=== PATIENT | female | born 1990 | race Caucasian/White ===

== ENCOUNTER 2022-03-08 06:03 | Day surgery (SDC) | payer OTHER, SELFPAY ==
[2022-03-08] VITALS (13 sets, daily range): BP systolic 101–138; BP diastolic 7–107; PULSE 60–82; RESP 16–18; TEMP 36.4–36.9; O2SAT 96–99; BMI 31.4
[2022-03-08] MEDS: LACTATED RINGERS 1000 ML 1,000 ML 100 ML IV (06:30)
[2022-03-08 06:33] LABS: Ur HCG Qualitative* Negative (Negative)
[2022-03-08] MEDS: SODIUM CHLORIDE 0.9 % (FLUSH) 10 ML SYRINGE IVF (06:47)
[2022-03-08] MEDS: BACITRACIN OINTMENT BULK TUBE 1 APPLIC TOPICAL (08:08)
[2022-03-08] MEDS: BUPIVACAINE LIPOSOME 133 MG/10 ML INJ INFILTRATI (08:08)
[2022-03-08] MEDS: BUPIVACAINE 0.25% 30 ML 10 ML INJECTION (08:08)
--- NOTE | 2022-03-08 08:11 | P.GSOP_ITS ---
Operative Note Date of procedure: 03/08/22 Pre-op diagnosis: Perianal skin tags Post-op diagnosis: Same Type of Procedure: Exam under anesthesia, excision of perianal nodule, excision of perianal skin tag Procedure Description: After discussing the risks and benefits of the procedure, the patient signed informed consent.? The operative site was marked and the patient was brought to the operating room and placed on the operating table in supine position.? Care was taken to pad the patient's pressure points.?? The patient was then given a spinal anesthetic and MAC anesthesia by anesthesia.? The patient was then transferred to the Operating Room table, placed in the prone jackknife position with appropriate bumps and padding. Care was taken to ensure the genitalia and breasts were properly positioned on the hip and chest rolls, respectively. The shoulders and arms were positioned with care to protect the brachial plexus. The buttocks were taped laterally. A sterile prep and drape was done in the usual fashion. A formal timeout for patient safety was performed in accordance with hospital protocol, thereby correctly matching this patient with their di agnosis and intended procedure. External examination, digital rectal examination, and anoscopic examination were all done and revealed a 1 mm nodule posterior midline, as well as a prominent perianal skin tag anterior midline. Attention was 1st directed to the nodule. This was excised with cautery and passed off the back table to be sent to pathology. Hemostasis was assured with electrocautery. A large perianal skin tag was appreciated anterior midline. An elliptical incision was made with a blunt needle tip electrocautery from the anoderm up into the anal canal just above the dentate line. Careful dissection of the hemorrhoid complex was done in the plane between the internal anal sphincter and the submucosal vascular plexus up to just above the dentate line in each quadrant described above. Having established the proper plane, the hemorrhoidal tissue was then excised with the Ligasure device and sent to Pathology with the nodule for analysis. Care was taken to preserve mucosa for a tension-free closure. The internal sphincter fibers were visualized at the base of the wound and were intact. The wound was closed in a running locked manner starting at the apex (proximal aspect of elliptical excision) with 4-0 chromic suture, coming out to the anoderm and then running back up in a simple fashion and tying down at the apex. Hemostasis was excellent. The patient tolerated procedure well. There were no apparent complications. Instrument, sponge, and needle counts were correct at the end of the case. Indications: Perianal nodule and perianal skin tag Anesthesia: MAC and spinal Surgeon: Shae Morrison MD Estimated blood loss (mL): 2 Additional Specimen Information: Perianal skin tags Condition: stable Disposition: same day
--- NOTE | 2022-03-08 08:17 | W.ANESCHARGE ---
Anesthesia Charges Start Date/Time Anesthesia Start Date: 03/08/22 Anesthesia Start Time: 07:32 Stop Date/Time Anesthesia Stop Date: 03/08/22 Anesthesia Stop Time: 08:15 Summary Emergency: No
--- NOTE | 2022-03-08 09:16 | W.ANESCHARGE ---
Anesthesia Charges Start Date/Time Anesthesia Start Date: 03/08/22 Anesthesia Start Time: 07:32 Stop Date/Time Anesthesia Stop Date: 03/08/22 Anesthesia Stop Time: 08:15 Summary Emergency: No
== END 2022-03-08 10:16 | disposition home or self-care (01) ==
PROVIDERS: PCP Physician Assistant Medical; Visit Provider Surgery
PROC: (CPT 46922; principal; 2022-03-08 07:30)
DX: K64.4 Residual hemorrhoidal skin tags (principal); K62.0 Anal polyp
CPT/HCPCS: 46922; 46230; 00902; 81025; 88304; C9290; J0330; J2250; J2400; J2405; J2704; J3010; J3490; J7120

== ENCOUNTER 2022-07-12 14:08 | Emergency (ER) | payer BC, SELFPAY ==
[2022-07-12 14:19] VITALS: BP 135/80; PULSE 86; RESP 18; TEMP 37.2; O2SAT 99; BMI 29.0
--- NOTE | 2022-07-12 16:14 | ED.FEMALEGU ---
HPI - Female Genitourinary General Time Seen by Provider: 16:14 Date Seen: 07/12/22 Chief complaint: Vaginal Bleeding Stated complaint: 3w Bleeding Time Seen by Provider: 07/12/22 16:11 Source: patient and RN notes reviewed Mode of arrival: ambulatory Limitations: no limitations History of Present Illness HPI Narrative: Patient is a 32-year-old female coming in with early bleeding that is concerning for possible miscarriage. She has not taken a home test, is not taken any test yet. She has had 2 prior miscarriages. Her LMP 1st day was 06/21/2022. She did start spotting a week early, noticed some this morning but went to work and was increasing. It is not have the clotting or heavy bleeding at this point. She is Rh negative and if is bleeding wants anything done. She states if it is early implantation bleeding she wants to do whatever she can to protect the . Date of last menstrual period: 06/21/22 Related Data : 2 Home Medications Medication Instructions Recorded Confirmed albuterol sulfate 90 mcg/actuation 2 inh inhalation PRN 01/09/22 06/06/22 aerosol inhaler cetirizine 10 mg tablet 10 mg PO DAILY 01/09/22 06/06/22 vits no.130-ferrous fum 1 tab PO DAILY 07/12/22 07/12/22 27 mg iron-folic acid 800 mcg tablet ( Vitamin) Previous Rx's Medication Instructions Recorded albuterol sulfate 2.5 mg/3 mL 2.5 mg (3 mL) continuous 01/09/22 (0.083 %) solution for nebulization nebulization Q6-8H PRN shortness of breath or wheezing #90 mL sennosides 8.6 mg capsule (senna) 8.6 mg PO BID #90 caps 03/07/22 epinephrine 0.3 mg/0.3 mL 0.3 mg (0.3 mL) IM .As Needed as 06/06/22 injection, auto-injector needed PRN anaphylaxis #2 ea fluoxetine 20 mg capsule 20 mg PO QDAY #90 caps 07/03/22 fluoxetine 40 mg capsule 40 mg PO QDAY #90 caps 07/03/22 levothyroxine 50 mcg tablet 50 mcg PO DAILY #90 tabs 07/04/22 Allergies Allergy/AdvReac Type Severity Reaction Status Date / Time pineapple Allergy Severe Anaphylaxis Verified 07/12/22 14:26 metoclopramide Allergy Intermediate Jittery Verified 07/12/22 14:26 and anxious latex Allergy Mild Unknown Verified 07/12/22 14:26 Sulfa Antibiotics Allergy Intermediate Vomiting Uncoded 06/06/22 13:35 Review of Systems Status of ROS: Reports: 6 or more systems reviewed and unremarkable except as noted in History and below PFS PFS Surgical History (Updated 10/20/21 @ 09:38 by Ely Moore) History of endoscopy ?Z98.890 - Other specified postprocedural states (ICD-10) History of colonoscopy ?Z98.890 - Other specified postprocedural states (ICD-10) History of abdominal surgery ?Z98.890 - Other specified postprocedural states (ICD-10) Family History (Updated 10/20/21 @ 09:41 by Ely Moore) Other Heart disease Mental disorder Seizures Type 2 diabetes mellitus Social History (Updated 10/20/21 @ 09:42 by Ely Moore) Narrative: Non-smoker Smoking Status: Never smoker Do you use any of these nicotine containing products: None How often do you have a drink containing alcohol: monthly or less Alcohol type: beer How many standard drinks containing alcohol do you have on a typical day: 1 or 2 How often do you have six or more drinks on one occasion: Never AUDIT-C Alcohol total score: 1 Non-prescribed substance use: denies use Caffeine: Yes (soda energy drinks) Little interest or pleasure in doing things: more than half the days Feeling down, depressed, or hopeless: several days Are you using contraception or practicing any form of control: No Exam Const: Vital Signs, click to edit/add: Vital Signs - 24 hr 07/12/22 14:19 Temperature 99.0 F Pulse Rate [Right Pulse Oximeter] 86 Respiratory Rate 18 Blood Pressure [Ri ght Upper Arm] 135/80 Pulse Oximetry 99 Oxygen Delivery Me thod Room Air Documenting provider has reviewed patient's vital signs: yes Common normals: no apparent distress, average body habitus, oriented x3, no limitations, healthy appearing and alert Other: A bit tearful at times but no distress. HENMT: Common normals: normocephalic, head/scalp atraumatic and hearing grossly normal bilaterally Head and scalp: normocephalic and atraumatic Eye: Common normals: PERRL, EOMs intact bilaterally, conjunctivae normal and no scleral icterus Conjunctiva: conjunctiva(e) normal Pupil: PERRL Neck & C-Spine: Common normals: full ROM, no lymphadenopathy and supple Resp: Common normals: normal respiratory effort, no retractions, no use of accessory muscles and clear to auscultation bilaterally Auscultation: clear to auscultation bilaterally Cardio: Common normals: regular rate, regular rhythm, S1 normal heart sound, S2 normal heart sound, no gallops, no clicks, no murmurs and no rub Rate: regular rate Rhythm: regular rhythm Heart sounds: S1 normal and S2 normal GI: Common normals: Normal to inspection, nondistended, normoactive bowel sounds present, soft to palpation, non-tender, no hepatosplenomegaly and no masses Palpation: soft and no hepatosplenomegaly Neuro: Common normals: oriented x3 Sensorium/orientation: alert Course Course Hospital Course: Reviewed with patient that we will be obtaining test. If this is negative, then this is likely irregular menstrual bleeding, possibly and an anovulatory cycle. If test is positive, will be giving her RhoGAM, checking a quantitative hCG and hemoglobin. This early on, an ultrasound is not likely to be helpful in she is not having abdominal pain. Vital Signs Vital signs: Initial Vital Signs Temperature 99.0 F 07/12/22 14:19 Temperature Source Temporal Artery Scan 07/12/22 14:19 Pulse Rate 86 07/12/22 14:19 Pulse Rhythm Regular 07/12/22 14:19 Respiratory Rate 18 07/12/22 14:19 Blood Pressure 135/80 07/12/22 14:19 Blood Pressure Mean 98 07/12/22 14:19 Blood Pressure Position Sitting 07/12/22 14:19 Pulse Oximetry 99 07/12/22 14:19 Oxygen Delivery Method Room Air 07/12/22 14:19 Vital Signs Temperature 99.0 F 07/12/22 14:19 Pulse Rate 86 07/12/22 14:19 Respiratory Rate 18 07/12/22 14:19 Blood Pressure 135/80 07/12/22 14:19 Pulse Oximetry 99 07/12/22 14:19 Oxygen Delivery Method Room Air 07/12/22 14:19 Temperature 99.0 F 07/12/22 14:19 Pulse Rate 86 07/12/22 14:19 Respiratory Rate 18 07/12/22 14:19 Blood Pressure 135/80 07/12/22 14:19 Pulse Oximetry 99 07/12/22 14:19 Oxygen Delivery Method Room Air 07/12/22 14:19 MDM - Female Genitourinary Lab Data Attestation: I reviewed the patient's lab results. Labs: Lab Results 07/12/22 Range/Units 16:00 Urine HCG, Qual Negative (Negative) Critical Care Time Critical Care Time Critical Care Time: No Discharge Plan Discharge Clinical Impression: Vaginal bleeding Patient Disposition: Home, Self-Care Condition: Stable Instructions: Abnormal (Dysfunctional) Uterine Bleeding (ED) Additional Instructions: No evidence of on current testing. Please follow-up with your OB Gyne or primary care provider. If you experience heavy bleeding where your going through a maxi pad more than once every hour over 2 hours or if symptomatic from bleeding, please seek re-evaluation. Activity Level: Activity as Tolerated Discharge Diet: Regular Prescriptions: No Action albuterol sulfate 90 mcg/actuation HFA aerosol inhaler 2 inh inhalation PRN cetirizine 10 mg tablet 10 mg PO DAILY albuterol sulfate 2.5 mg /3 mL (0.083 %) solution for nebulization 2.5 mg continuous nebulization Q6-8H PRN (Reason: shortness of breath or wheezing) Qty: 90 3RF epinephrine 0.3 mg/0.3 mL auto-injector 0.3 mg IM .As Needed as needed PRN (Reason: anaphylaxis) Qty: 2 1RF Vitamin 27 mg iron- 800 mcg tablet 1 tab PO DAILY senna 8.6 mg capsule 8.6 mg PO BID Qty: 90 0RF Rx Instructions: Please take stool softeners while on narcotic pain medication. Stop if having > 2 bowel movements a day. fluoxetine 40 mg capsule 40 mg PO QDAY Qty: 90 0RF fluoxetine 20 mg capsule 20 mg PO QDAY Qty: 90 0RF Rx Instructions: 1 po daily for total of 60mg daily levothyroxine 50 mcg tablet 50 mcg PO DAILY Qty: 90 0RF Rx Instructions: due for labs for further refills Follow Up/Referrals: Tee Souza PA-C [Primary Care Provider] - Stand Alone Forms: [employer] [facility] [facility]th Info Instructions
[2022-07-12 16:46] LABS: Ur HCG Qualitative* Negative (Negative)
== END 2022-07-12 17:20 | disposition home or self-care (01) ==
PROVIDERS: Emergency Provider Family Medicine; PCP Physician Assistant Medical
DX: O20.9 Hemorrhage in early pregnancy, unspecified (principal)
CPT/HCPCS: 81025; 99282; 99283

== ENCOUNTER 2022-10-31 08:30 | Outpatient (CLI) | payer BC, SELFPAY ==
--- NOTE | 2022-10-31 09:15 | CRLHL7_ITS ---
For Patients: As a result of the Cures Act, medical imaging exams and procedure reports are released immediately into your electronic medical record. You may view this report before your referring provider. If you have questions, please contact your health care provider. INDICATION: First trimester scan, establish dates. COMPARISON: None. TECHNIQUE: Real-time harris-scale imaging of the pelvis was performed. FINDINGS: Sonographic imaging demonstrates a single living intrauterine gestation. The embryo demonstrates a regular cardiac rate measuring 176 beats per minute. The embryo`s crown-rump length measurement of 2.1 cm corresponds to a gestational age of 8 weeks 5 days with a sonographic due date of June 07, 2023. There is a normal-appearing yolk sac measuring up to 4 mm. There are no gross abnormalities noted within the embryo at this early state of development. The placenta has not yet developed. The gestational sac has a normal appearance and there is no evidence of a perigestational hemorrhage. The amount of fluid within the sac appears appropriate for gestational age. The cervix is closed. The myometrium appears normal. The right ovary is not seen. The left ovary measures 2.9 x 2.3 x 2.2 cm. Small corpus luteum cyst of left ovary. There are no suspicious fluid collections noted in the cul-de-sac. IMPRESSION: Normal first trimester OB ultrasound exam. Gestational age calculated at 8 weeks 5 days with a sonographic due date of June 07, 2023. Dictated by Javier Quintanilla MD @ 10/31/2022 9:56:51 PM (Electronically Signed)
== END 2022-10-31 08:31 | disposition home or self-care (01) ==
LOC: US 08:32
PROVIDERS: PCP Physician Assistant Medical; Visit Provider Registered Nurse
DX: Z34.91 Encounter for supervision of normal pregnancy, unspecified, first trimester (principal); Z3A.08 8 weeks gestation of pregnancy
CPT/HCPCS: 76817; 84443; 86592; 86703; 86762; 86787; 86803; 86850; 86900; 86901; 87086; 87340; 87491; 87591

== ENCOUNTER 2022-12-09 16:14 | Emergency (ER) | payer OTHER, BC, SELFPAY ==
[2022-12-09 16:24] VITALS: BP 131/78; PULSE 102; RESP 18; TEMP 37.6; O2SAT 99; BMI 30.2
--- NOTE | 2022-12-09 16:32 | ED_ITS ---
HPI - Abdominal Pain General Chief Complaint: Abdominal Pain Stated Complaint: 14 wks , abdominal injury Time Seen by Provider: 12/09/22 16:17 History of Present Illness HPI narrative: This 32-year-old female who is 14 weeks and comes in with an injury to her lower abdomen. She states that her Great [place] dog jumped across and hit her in the lower abdomen. She is very concerned about her but does not report any cramping or bloody red discharge. She has had some brownish spotting over the past few days prior to this. Related Data Home Medications Medication Instructions Recorded Confirmed albuterol sulfate 90 mcg/actuation 2 inh inhalation PRN 01/09/22 11/28/22 aerosol inhaler vits no.130-ferrous fum 1 tab PO DAILY 07/12/22 11/28/22 27 mg iron-folic acid 800 mcg tablet ( Vitamin) ascorbic acid 100 mg-elderberry tab PO 10/31/22 11/28/22 fruit 50 mg chewable tablet (Airborne (elderberry)) wheat dextrin 3 gram/3.8 gram oral 1 packet PO BID 10/31/22 11/28/22 powder (Fiber Supplement(wheat dextrin)) aspirin 81 mg chewable tablet 81 mg PO QDAY 11/28/22 11/28/22 Previous Rx's Medication Instructions Recorded albuterol sulfate 2.5 mg/3 mL 2.5 mg (3 mL) continuous 01/09/22 (0.083 %) solution for nebulization nebulization Q6-8H PRN shortness of breath or wheezing #90 mL epinephrine 0.3 mg/0.3 mL 0.3 mg (0.3 mL) IM .As Needed as 06/06/22 injection, auto-injector needed PRN anaphylaxis #2 ea levothyroxine 50 mcg tablet 50 mcg PO DAILY #90 tabs 10/31/22 ondansetron 4 mg disintegrating 4 mg PO .q6hr PRN nausea and 10/31/22 tablet vomiting #30 tabs Allergies Allergy/AdvReac Type Severity Reaction Status Date / Time pineapple Allergy Severe Anaphylaxis Verified 12/09/22 16:22 metoclopramide Allergy Intermediate Jittery Verified 12/09/22 16:22 and anxious latex Allergy Mild Unknown Verified 12/09/22 16:22 Sulfa Antibiotics Allergy Intermediate Vomiting Uncoded 11/28/22 13:16 Review of Systems Status of ROS Reports: 10 or more systems reviewed and unremarkable except as noted in History and below Narrative Constitutional: No fevers, no weight gain or loss. Eyes: No discharge. No vision changes. HENT: No congestion, no sore throat, no ear pain. Cardiovascular: No chest pain, no palpitations. Respiratory: No shortness of breath, no wheezes, no cough. Gastrointestinal: No vomiting, no diarrhea. Abdominal pain in the lower abd omen. Genitourinary: No dysuria, no hematuria. Musculoskeletal: Normal range of motion. Skin: No rashes, no pruritis. Neurological: No dizziness, weakness, sensory change, speech change. Endo/Heme/Allergies: No bruising or bleeding. No polydipsia. Pysch: no suicidality, no anxiety, no insomnia. All other systems reviewed and are negative. [facility] Medical History Hemorrhage in early ?O20.9 - Hemorrhage in early , unspecified (ICD-10) Fertility testing ?Z31.41 - Encounter for fertility testing (ICD-10) Surgical History H/O eye surgery ?Z98.890 - Other specified postprocedural states (ICD-10) History of endoscopy ?Z98.890 - Other specified postprocedural states (ICD-10) History of colonoscopy ?Z98.890 - Other specified postprocedural states (ICD-10) History of abdominal surgery ?Z98.890 - Other specified postprocedural states (ICD-10) Family History Other Heart disease Mental disorder Seizures Type 2 diabetes mellitus Social History Narrative: Non-smoker Smoking Status: Never smoker Do you use any of these nicotine containing products: None Second hand tobacco smoke exposure: No How often do you have a drink containing alcohol: never How many standard drinks containing alcohol do you have on a typical day: 1 or 2 How often do you have six or more drinks on one occasion: Never AUDIT-C Alcohol total score: 0 Non-prescribed substance use: denies use Caffeine: Yes (soda energy drinks) Little interest or pleasure in doing things: not at all Feeling down, depressed, or hopeless: several days Are you using contraception or practicing any form of control: No service: No Exam Narrative: Exam Narrative: Constitutional: Well-developed, well-nourished, no acute distress. HEENT: Normocephalic, atraumatic. Neck: Normal range of motion. Nontender. Supple. Heart: Regular. No murmurs. Normal rate. Intact distal pulses. Lungs: Clear to auscultation. No chest discomfort. No wheezes, rhonchi, or rales. Abdomen: Normal bowel sounds. Nontender. No rebound tenderness. Genitalia: Deferred. Back: No midline tenderness. Normal range of motion. Extremities: Normal range of motion. No injury. Skin: Intact. No rash. Warm. No erythema or pallor. Neurologic: No altered sensation. No weakness. Alert and oriented. Psychiatric: No suicidality. No anxiety or depression. No insomnia. Nursing notes and vitals signs are reviewed. Const: Vital Signs, click to edit/add: Vital Signs - 24 hr 12/09/22 16:24 Temperature 99.6 F Pulse Rate [Pulse Oximeter] 102 H Respiratory Rate 18 Blood Pressure [Ri ght Upper Arm] 131/78 Pulse Oximetry 99 Oxygen Delivery Me thod Room Air Course Vital Signs Vital signs: Initial Vital Signs Temperature 99.6 F 12/09/22 16:24 Temperature Source Temporal Artery Scan 12/09/22 16:24 Pulse Rate 102 H 12/09/22 16:24 Pulse Rhythm Regular 12/09/22 16:24 Pulse Strength 3+ Normal 12/09/22 16:24 Respiratory Rate 18 12/09/22 16:24 Blood Pressure 131/78 12/09/22 16:24 Blood Pressure Mean 95 12/09/22 16:24 Blood Pressure Position Sitting 12/09/22 16:24 Pulse Oximetry 99 12/09/22 16:24 Oxygen Delivery Method Room Air 12/09/22 16:24 Vital Signs Temperature 99.6 F 12/09/22 16:24 Pulse Rate 102 H 12/09/22 16:24 Respiratory Rate 18 12/09/22 16:24 Blood Pressure 131/78 10/01/23 16:24 Pulse Oximetry 99 12/09/22 16:24 Oxygen Delivery Method Room Air 12/09/22 16:24 Temperature 99.6 F 12/09/22 16:24 Pulse Rate 102 H 12/09/22 16:24 Respiratory Rate 18 12/09/22 16:24 Blood Pressure 131/78 12/09/22 16:24 Pulse Oximetry 99 12/09/22 16:24 Oxygen Delivery Method Room Air 12/09/22 16:24 MDM - Abdominal Pain MDM Narrative Medical decision making narrative: This patient comes in with concern about her after her 90 lb great chain jumped and landed on her lower abdomen. Using bedside ultrasound I showed images of her which displayed good activity, normal amount of amniotic fluid, and normal heart activity. This was very reassuring to the patient and her . She is encouraged use Tylenol as needed and to cont inue current plans otherwise. Discharge Plan Discharge Clinical Impression: , Abdominal pain due to injury Patient Disposition: Home, Self-Care Condition: Stable Additional Instructions: Continue current plans. Use Tylenol as needed and directed. Follow up with MD return if worsening. Prescriptions: No Action albuterol sulfate 90 mcg/actuation HFA aerosol inhaler 2 inh inhalation PRN albuterol sulfate 2.5 mg /3 mL (0.083 %) solution for nebulization 2.5 mg continuous nebulization Q6-8H PRN (Reason: shortness of breath or wheezing) Qty: 90 3RF aspirin 81 mg tablet,chewable 81 mg PO QDAY epinephrine 0.3 mg/0.3 mL auto-injector 0.3 mg IM .As Needed as needed PRN (Reason: anaphylaxis) Qty: 2 1RF ascorbic acid-elderberry fruit [Airborne (elderberry)] 100-50 mg tablet,chewable PO Fiber Supplement(wheatdextrin) 3 gram/3.8 gram powder 1 packet PO BID Rx Instructions: mix into at least 4 oz water or juice before administering ondansetron 4 mg tablet,disintegrating 4 mg PO .q6hr PRN (Reason: nausea and vomiting) Qty: 30 1RF levothyroxine 50 mcg tablet 50 mcg PO DAILY Qty: 90 0RF Vitamin 27 mg iron- 800 mcg tablet 1 tab PO DAILY Follow Up/Referrals: Tee Souza PA-C [Primary Care Provider] - Stand Alone Forms: [facility] Info Instructions Procedures Ultrasound Other exam #1: Anatomical areas examined: Lower abdomen with at 14 weeks gestation. Indications: External trauma. Description/findings: Normal anatomy with normal activity and heart rate. Impression: Normal exam.
== END 2022-12-09 17:10 | disposition home or self-care (01) ==
PROVIDERS: Emergency Provider Emergency Medicine Emergency Medical Services; PCP Physician Assistant Medical
DX: R10.30 Lower abdominal pain, unspecified (principal); Z3A.14 14 weeks gestation of pregnancy; W54.8XXA Other contact with dog, initial encounter
CPT/HCPCS: 76815; 99283; 99284

== ENCOUNTER 2023-01-23 14:12 | Outpatient (CLI) | payer OTHER, BC, SELFPAY ==
--- NOTE | 2023-01-23 14:00 | CRLHL7_ITS ---
For Patients: As a result of the Century Cures Act, medical imaging exams and procedure reports are released immediately into your electronic medical record. You may view this report before your referring provider. If you have questions, please contact your health care provider. INDICATION: Evaluate anatomy. COMPARISON: 10/31/2022 TECHNIQUE: Real time harris scale imaging of the fetus was performed as well as color Doppler analysis of the umbilical vessels. FINDINGS: Sonographic imaging demonstrates a single living intrauterine gestation. Fetus demonstrates a regular cardiac rate of 154 beats per minute. Fetus has a vertex position. The placenta lies posterior. With transvaginal measurement, the edge of the placenta is located 9 millimeters from the internal cervical os. Amniotic fluid volume appears normal. Single deepest vertical pocket: 5.6 cm. The cervix is closed and measures 3.6 cm in length. The composite ultrasound gestational age is calculated at 21 weeks 4 days with an estimated sonographic due date of 06/01/2023. The estimated weight is 440 grams which lies at the 94th %. The following biometric measurements were obtained: Biparietal diameter: 5.1 cm/21 weeks 2 days 78th% Head circumference: 18.9 cm/21 weeks 2 days 70th% Abdominal circumference: 16.8 cm/21 weeks 5 days 81st% Femur length: 3.7 cm/21 weeks 4 day 77th% The HC/AC ratio measures: 1.13 range (1.06-1.24) On anatomic survey, there is a normal appearance of the cerebral ventricles, cavum septi pellucidi, cisterna magna and cerebellum. The nose, lips, and facial profile appear normal. The cervical, thoracic and lumbar spine are well visualized and appear normal. There is a normal four-chamber heart view and the left and right ventricular outflow tracts appear normal. The diaphragm and stomach appear normal. The kidneys and bladder also appear normal. There is a normal three-vessel cord and cord insertion site. The four extremities appear normal. IMPRESSION: Sonographic gestational age 21 weeks 4 days and sonographic due date 06/01/2023. Sonographic age 1 week ahead of the clinical age. No intrinsic abnormalities noted on anatomic survey. Placenta is low lying. Posterior placental edge is located 9 millimeters from the internal cervical os. Dictated by Javid Krishnamurthy MD @ 01/24/2023 9:19:48 AM (Electronically Signed)
== END 2023-01-23 14:13 | disposition home or self-care (01) ==
LOC: US 14:13
PROVIDERS: PCP Physician Assistant Medical; Visit Provider Obstetrics & Gynecology
DX: Z34.92 Encounter for supervision of normal pregnancy, unspecified, second trimester (principal); O44.42 Low lying placenta NOS or without hemorrhage, second trimester; Z3A.21 21 weeks gestation of pregnancy
CPT/HCPCS: 76805; 76817; 84443

== ENCOUNTER 2023-02-02 11:50 | Emergency (ER) | payer OTHER, BC, SELFPAY ==
[2023-02-02 12:02] VITALS: BP 119/73; PULSE 90; RESP 18; TEMP 36.7; O2SAT 98; BMI 31.6
--- NOTE | 2023-02-02 12:15 | ED.GENADULT ---
HPI - General Adult General Time Seen by Provider: 12:15 Date Seen: 02/02/23 Chief complaint: Headache/Migraine Stated complaint: Migraine, 5 months Time Seen by Provider: 02/02/23 12:03 Source: patient and RN notes reviewed Mode of arrival: ambulatory Limitations: no limitations History of Present Illness HPI narrative: This 32-year-old female is coming in at the request of her OB provider with concern of migraine headache starting yesterday. Paula started feeling ill at work yesterday, felt lightheaded dizzy, had a headache in the back of her head. Her eyes feel like there are pressure behind them but no changes in vision. She does have photophobia. She has had nausea throughout this , is about 22 weeks now. She has had nasal congestion through this , did have a little sore throat and coughing the other day but thought it was from the nasal congestion. She has had no fevers. She does not have a history of prior migraines. She has noticed no neurologic changes such is numbness tingling weakness anywhere. She has not tried any Tylenol. She basically tried some ice and notes that sleep was restless last night. She has no abdominal pain, has had no vaginal leaking. Related Data Home Medications Medication Instructions Recorded Confirmed vits [id number] fum 1 tab PO DAILY 07/12/22 02/02/23 27 mg iron-folic acid 800 mcg tablet ( Vitamin) ascorbic acid 100 mg-elderberry tab PO 10/31/22 01/23/23 fruit 50 mg chewable tablet (Airborne (elderberry)) wheat dextrin 3 gram/3.8 gram oral 1 packet PO BID 10/31/22 02/02/23 powder (Fiber Supplement(wheat dextrin)) aspirin 81 mg chewable tablet 81 mg PO QDAY 11/28/22 02/02/23 Previous Rx's Medication Instructions Recorded epinephrine 0.3 mg/0.3 mL 0.3 mg (0.3 mL) IM .As Needed as 06/06/22 injection, auto-injector needed PRN anaphylaxis #2 ea levothyroxine 50 mcg tablet 50 mcg PO DAILY #90 tabs 10/31/22 albuterol sulfate 2.5 mg/3 mL 2.5 mg (3 mL) continuous 01/23/23 (0.083 %) solution for nebulization nebulization Q6-8H PRN shortness of breath or wheezing #90 mL albuterol sulfate 90 mcg/actuation 2 inh inhalation Q4H PRN shortness 01/23/23 aerosol inhaler of breath or wheezing #6.7 grams ondansetron 4 mg disintegrating 4 mg PO .q6hr PRN nausea and 01/23/23 tablet vomiting #30 tabs nirmatrelvir 300 mg (150 mg See Rx Instructions PO .COMPLEX 02/02/23 x2)-ritonavir 100 mg tablet,dose #30 ea pack (Paxlovid) Allergies Allergy/AdvReac Type Severity Reaction Status Date / Time pineapple Allergy Severe Anaphylaxis Verified 02/02/23 12:07 metoclopramide Allergy Intermediate Jittery Verified 02/02/23 12:07 and anxious latex Allergy Mild Unknown Verified 02/02/23 12:07 Sulfa Antibiotics Allergy Intermediate Vomiting Uncoded 01/23/23 13:41 Review of Systems Status of ROS: Reports: 6 or more systems reviewed and unremarkable except as noted in History and below PFSH PFS Medical History Hemorrhage in early ?O20.9 - Hemorrhage in early , unspecified (ICD-10) Fertility testing ?Z31.41 - Encounter for fertility testing (ICD-10) Surgical History H/O eye surgery ?Z98.890 - Other specified postprocedural states (ICD-10) History of endoscopy ?Z98.890 - Other specified postprocedural states (ICD-10) History of colonoscopy ?Z98.890 - Other specified postprocedural states (ICD-10) History of abdominal surgery ?Z98.890 - Other specified postprocedural states (ICD-10) Family History Other Heart disease Mental disorder Seizures Type 2 diabetes mellitus Social History Narrative: Non-smoker Smoking Status: Never smoker Do you use any of these nicotine containing products: None Second hand tobacco smoke exposure: No How often do you have a drink containing alcohol: never How many standard drinks containing alcohol do you have on a typical day: 1 or 2 How often do you have six or more drinks on one occasion: Never AUDIT-C Alcohol total score: 0 Non-prescribed substance use: denies use Caffeine: Yes (soda energy drinks) Little interest or pleasure in doing things: not at all Feeling down, depressed, or hopeless: several days Are you using contraception or practicing any form of control: No service: No Exam Const: Vital Signs, click to edit/add: Vital Signs - 24 hr 02/02/23 12:02 Temperature 98.1 F Pulse Rate [Left P ulse Oximeter] 90 Respiratory Rate 18 Blood Pressure [Ri ght Upper Arm] 119/73 Pulse Oximetry 98 Oxygen Delivery Me thod Room Air Paula is a very pleasant 32-year-old female that is alert, interactive, no apparent distress. She was ambulatory into the ED of her own accord. Sclera clear, pupils equal round reactive, symmetrical facial function. Oropharynx from the coast, dentition good repair, no mucosal changes, well hydrated. TMs are normal. Neck is supple, no cervical adenopathy, no thyromegaly masses or nodules. Lungs are clear, good air entry, no wheeze or crackles. CV regular rate and rhythm, no murmur, normal S1-S2. Abdomen is soft, nontender, gravid uterus. Gait was normal, strength normal and symmetrical throughout. Skin visualized without rash. Nursing staff did FHT's, 134. Documenting provider has reviewed patient's vital signs: yes Course Course ED Course: Unfortunately just sick as had some intolerance to Reglan which would be my 1st option for her. We have discussed getting baseline labs, doing the triple viral swab to just ensure that she is not coming down with 1 of these viruses that is actually precipitating headache. Headache disorders can arise in for some people. She is neurologically intact. We will stab lotion IV, give her L of IV fluids, 4 mg IV Zofran, 25 mg IV Benadryl and a 1000 mg oral acetaminophen. At this time, see no indication or need for any neuro imaging. Indeed, only imaging I would be able to do would be head CT which I would certainly not recommend given the clinical exam that I am seen at this time. There is no MRI capacity here at this time nor do I feel she needs it emergently at this time, do not feel she needs it all currently. Reevaluation(s) Time of Reevaluation #1: 14:02 Reevaluation #1: Reviewed normal CBC and comprehensive metabolic panel with patient. She is overall improved with her headache. We are waiting the triple viral swab to come back. Time of Reevaluation #2: 14:47 Reevaluation #2: Have reviewed with patient that her COVID unfortunately has come back positive. I did contact her OB Dr. Spence. She would like to talk to some of her partners prior to making a decision on treatment. Have reviewed with her that [facility] is recommending treatment, following same guidelines as non- patients outside of not using mulpulniravir in . Dr. Spence did call back and confirmed she found Paxlovid to be outpatient drug of choice in as well. Vital Signs Vital signs: Initial Vital Signs Temperature 98.1 F 02/02/23 12:02 Temperature Source Temporal Artery Scan 02/02/23 12:02 Pulse Rate 90 02/02/23 12:02 Respiratory Rate 18 02/02/23 12:02 Blood Pressure 119/73 02/02/23 12:02 Blood Pressure Mean 88 02/02/23 12:02 Blood Pressure Position Sitting 02/02/23 12:02 Pulse Oximetry 98 02/02/23 12:02 Oxygen Delivery Method Room Air 02/02/23 12:02 Vital Signs Temperature 98.1 F 02/02/23 12:02 Pulse Rate 90 02/02/23 12:02 Respiratory Rate 18 02/02/23 12:02 Blood Pressure 119/73 02/02/23 12:02 Pulse Oximetry 98 02/02/23 12:02 Oxygen Delivery Method Room Air 02/02/23 12:02 Temperature 98.1 F 02/02/23 12:02 Pulse Rate 90 02/02/23 12:02 Respiratory Rate 18 02/02/23 12:02 Blood Pressure 119/73 02/02/23 12:02 Pulse Oximetry 98 02/02/23 12:02 Oxygen Delivery Method Room Air 02/02/23 12:02 Medications Administered Medications: Discontinued Medications Generic Name Dose Route Start Last Admin Trade Name Freq PRN Reason Stop Dose Admin Acetaminophen 1,000 mg 02/02/23 12:29 02/02/23 13:20 Acetaminophen 500 Mg Tablet PO 02/02/23 12:30 1,000 mg ONCE ONE Administration Diphenhydramine HCl 25 mg 02/02/23 12:29 02/02/23 13:20 Diphenhydramine 50 Mg/Ml Inj IVP 02/02/23 12:30 25 mg ONCE ONE Administration Sodium Chloride 1,000 mls @ 500 mls/hr 02/02/23 12:30 02/02/23 13:20 0.9 % Sodium Chloride 1000 Ml IV 02/02/23 14:29 500 mls/hr .Q2H BOONE Administration Ondansetron HCl 4 mg 02/02/23 12:29 02/02/23 13:20 Ondansetron 2 Mg/Ml Inj IVP 02/02/23 12:30 4 mg ONCE ONE Administration Medical Decision Making Lab Data Lab results reviewed: Yes I reviewed the patient's lab results Labs: Lab Results 02/02/23 Range/Units 12:55 WBC 8.23 (4.50-11.00) K/uL RBC 4.64 (4.00-5.20) m/uL Hgb 13.2 (12.0-16.0) gm/dL Hct 40.5 (33.0-51.0) % MCV 87 (80-100) fL MCH 28 (26-34) pg MCHC 33 (32-36) gm/dL RDW Coeff of [place] 14.7 (11.5-15.5) % Plt Count 281 (140-440) K/uL Neut % (Auto) 68.8 (42.0-72.0) % Lymph % (Auto) 15.1 L (20-44) % Mckinley % (Auto) 14.7 H (0.0-11.0) % Eos % (Auto) 0.6 (0.0-7.0) % Baso % (Auto) 0.1 (0.0-3.0) % Neut # (Auto) 5.66 (1.7-7.0) K/uL Lymph # (Auto) 1.20 (0.90-2.90) K/uL Mck[place]ley # (Auto) 1.20 H (0.00-0.90) K/UL Eos # (Auto) 0.05 (0.00-0.50) K/uL Baso # (Auto) 0.01 (0.00-0.30) K/uL Abs Immat Gran (auto) 0.06 (0.00-0.30) K/uL Imm/Tot Granulo (auto) 0.7 % Sodium 136 (135-149) mmol/L Potassium 4.0 (3.6-5.1) mmol/L Chloride 104 (96-114) mmol/L Carbon Dioxide 25 (20-32) mmol/L Anion Gap 7 (7-15) mEq/L BUN 8 (5-24) mg/dL Creatinine 0.5 (0.5-1.5) mg/dL Estimated Creat Clear 159.99 Estimated GFR 129 ml/min Glucose 87 (60-115) mg/dL Calcium 8.9 (8.4-10.6) mg/dL Total Bilirubin 0.2 (0.1-1.5) mg/dL AST 23 (12-35) U/L ALT 26 (4-35) U/L Alkaline Phosphatase 73 (40-150) U/L Total Protein 7.4 (6.0-8.3) g/dL Albumin 4.0 (3.3-5.0) g/dL SARS-CoV-2 (PCR) POSITIVE SARS-CoV-2 A (Negative) Influenza Type A (PCR) Negative PCR FLU A (Negative) Influenza Type B (PCR) Negative PCR FLU B (Negative) RSV (PCR) Negative PCR RSV (Negative) Discharge Plan Discharge Clinical Impression: COVID-19 Patient Disposition: Home, Self-Care Condition: Stable Instructions: COVID-19 (Coronavirus Disease 2019) (ED), COVID-19: Slow the Coronavirus Spread (ED) Additional Instructions: Need to quarantine per CDC guidelines for COVID-19. Drink plenty of fluids. Your likely to have a headache through this illness, can try Tylenol per bottle directions. You can also try some Benadryl, Benadryl has sedating properties in may be used at bedtime to help you sleep through this. Start packs of id and take as prescribed. Review handouts, if you have concerns about your illness worsening, feel you are having difficulty breathing or shortness of breath, do request that you are re-evaluated. Activity Level: Activity as Tolerated Prescriptions: New Paxlovid 300 mg (150 mg x 2)-100 mg tablets,dose pack See Rx Instructions .ROUTE .COMPLEX Qty: 30 0RF Rx Instructions: take TWO 150 mg tablets of nirmatrelvir with ONE 100 mg tablet of ritonavir twice daily for 5 days No Action aspirin 81 mg tablet,chewable 81 mg PO QDAY epinephrine 0.3 mg/0.3 mL auto-injector 0.3 mg IM .As Needed as needed PRN (Reason: anaphylaxis) Qty: 2 1RF ascorbic acid-elderberry fruit [Airborne (elderberry)] 100-50 mg tablet,chewable PO Fiber Supplement(wheatdextrin) 3 gram/3.8 gram powder 1 packet PO BID Rx Instructions: mix into at least 4 oz water or juice before administering levothyroxine 50 mcg tablet 50 mcg PO DAILY Qty: 90 0RF ondansetron 4 mg tablet,disintegrating 4 mg PO .q6hr PRN (Reason: nausea and vomiting) Qty: 30 1RF albuterol sulfate 2.5 mg /3 mL (0.083 %) solution for nebulization 2.5 mg continuous nebulization Q6-8H PRN (Reason: shortness of breath or wheezing) Qty: 90 3RF albuterol sulfate 90 mcg/actuation HFA aerosol inhaler 2 inh inhalation Q4H PRN (Reason: shortness of breath or wheezing) Qty: 6.7 0RF Vitamin 27 mg iron- 800 mcg tablet 1 tab PO DAILY Follow Up/Referrals: Tee Souza PA-C [Primary Care Provider] - Stand Alone Forms: [employer] Info Instructions
[2023-02-02 13:07] LABS: Hematocrit 40.5 % (33.0-51.0); Hemoglobin* 13.2 gm/dL (12.0-16.0); Lymphocytes Percent Auto 15.1 % (20-44); Mean Corpuscular HGB Conc 33 gm/dL (32-36); Mean Corpuscular Hemoglobin 28 pg (26-34); Mean Corpuscular Volume 87 fL (80-100); Neutrophils Percent Auto 68.8 % (42.0-72.0); Platelet Count* 281 K/uL (140-440); RDW Coefficient of Variation % 14.7 % (11.5-15.5); Red Blood Count 4.64 m/uL (4.00-5.20); White Blood Count* 8.23 K/uL (4.50-11.00)
[2023-02-02 13:08] LABS: Basophils Absolute Auto 0.01 K/uL (0.00-0.30); Basophils Percent Auto 0.1 % (0.0-3.0); Eosinophils Absolute Auto 0.05 K/uL (0.00-0.50); Eosinophils Percent Auto 0.6 % (0.0-7.0); Immature Granulocytes Abs Auto 0.06 K/uL (0.00-0.30); Immature Granulocytes Pct Auto 0.7 %; Monocytes Percent Auto 14.7 % (0.0-11.0); Neutrophils Absolute Auto 5.66 K/uL (1.7-7.0)
[2023-02-02 13:11] LABS: Slide Review Reflex No
[2023-02-02] MEDS: ACETAMINOPHEN 500 MG TABLET 1000 MG PO (13:20)
[2023-02-02] MEDS: diphenhydrAMINE 50 MG/ML inj 25 MG IVP (13:20)
[2023-02-02] MEDS: 0.9 % SODIUM CHLORIDE 1000 ml 1,000 ML 500 ML IV (13:20)
[2023-02-02] MEDS: ONDANSETRON 2 MG/ML inj 4 MG IVP (13:20)
[2023-02-02 13:23] LABS: Chloride* 104 mmol/L (96-114); Sodium* 136 mmol/L (135-149)
[2023-02-02 13:25] LABS: Creatinine* 0.5 mg/dL (0.5-1.5); Est. Creatinine Clearance* 159.99; Estimated Glomerular Filt Rate 129 ml/min
[2023-02-02 13:26] LABS: Alanine Aminotransferase* 26 U/L (4-35); Alkaline Phosphatase* 73 U/L (40-150); Anion Gap 7 mEq/L (7-15); Aspartate Amino Transferase* 23 U/L (12-35); Bilirubin Total* 0.2 mg/dL (0.1-1.5); Blood Urea Nitrogen* 8 mg/dL (5-24); Carbon Dioxide* 25 mmol/L (20-32); Glucose* 87 mg/dL (60-115); Total Protein* 7.4 g/dL (6.0-8.3)
[2023-02-02 13:27] LABS: Calcium* 8.9 mg/dL (8.4-10.6)
[2023-02-02 13:45] LABS: PCR FLU A Negative PCR FLU A (Negative); PCR FLU B Negative PCR FLU B (Negative); PCR RSV Negative PCR RSV (Negative)
[2023-02-02 14:00] VITALS: BP 116/64; PULSE 74; RESP 16; O2SAT 98
[2023-02-02 14:22] LABS: SARS PCR* POSITIVE SARS-CoV-2 (Negative)
[2023-02-02 14:30] VITALS: BP 107/64; PULSE 75; RESP 16; O2SAT 99
== END 2023-02-02 15:10 | disposition home or self-care (01) ==
PROVIDERS: Emergency Provider Family Medicine; PCP Physician Assistant Medical
DX: U07.1 COVID-19 (principal); Z3A.22 22 weeks gestation of pregnancy
CPT/HCPCS: 36415; 80053; 85025; 87631; 96374; 96375; 99284; A9270; J1200; J2405; J7030

== ENCOUNTER 2023-03-07 20:08 | Emergency (ER) | payer OTHER, BC, SELFPAY ==
[2023-03-07] VITALS (10 sets, daily range): BP systolic 95–155; BP diastolic 55–101; PULSE 92–116; RESP 18; TEMP 36.8; O2SAT 96–98; BMI 33.7
--- NOTE | 2023-03-07 20:50 | CRLHL7_ITS ---
For Patients: As a result of the Century Cures Act, medical imaging exams and procedure reports are released immediately into your electronic medical record. You may view this report before your referring provider. If you have questions, please contact your health care provider. INDICATION: Hemoptysis. TECHNIQUE: Chest 2 views. COMPARISON: None. FINDINGS: Cardiovascular and mediastinum: Heart size and vasculature are normal in caliber and appearance. Lungs and pleural spaces: Lungs are clear. No sign of infiltrate or mass. No sign of pleural effusion. No pneumothorax. Bones and soft tissues: No significant findings. IMPRESSION: No acute cardiopulmonary abnormality. Dictated by Fuentes Lombardo MD @ 03/07/2023 10:30:57 PM (Electronically Signed)
--- NOTE | 2023-03-07 21:11 | ED.GENADULT ---
HPI - General Adult General Chief complaint: Unspecified Complaint, Adult Stated complaint: Vomiting blood-6 mos Time Seen by Provider: 03/07/23 20:34 Source: patient Mode of arrival: ambulatory Limitations: no limitations History of Present Illness HPI narrative: 32-year-old female presents the emergency department with hemoptysis versus hematemesis that started earlier this morning. Patient reports that upon awakening this morning, she coughed and produced what looks to be per her description and the picture she provides to be less than 5 mL of blood. This was cough into the sink. She had no pain. She has had no recent fevers, sore throat. She does not have a history of GERD. No history of esophagitis, esophageal dilation or procedures or stomach surgeries. She spoke with her Ob provider and was advised to be evaluated by primary care. Ultimately she was evaluated in the [facility]. Conservative management was recommended per her report. She states that she went home and then started having hematemesis. She has had 2 total episodes of this at home and now 1 here in the ED that is just slightly blood streaked. She does not have a sore throat and cannot tell if this is coming from the throat, lungs or GI tract. She has been having regular bowel movements has been able to eat and drink normally. She has no pain. She has not had any bloody stools, black tarry stools. She has not been recommended to take proton pump inhibitor or other stomach acid medicine. She is currently 6 months reports excellent movement. No vaginal bleeding or cramping. She does take a baby aspirin, advised to do so because of increased risk of preeclampsia. She takes no other anticoagulants. No prior history of similar symptoms. No prior endoscopy. Past medical history benign per her report besides some hypothyroidism. It sounds like she had an episode of intussusception and bowel obstruction from a viral illness that did require operative intervention back in 2016, no other prior GI surgeries. Medications are reviewed, notable for vitamin, levothyroxine and low-dose daily aspirin. notes are reviewed and noncontributory. She is a nonsmoker. ROS notable for the bleeding as described above, otherwise denies new symptoms times 12 systems. Related Data Home Medications Medication Instructions Recorded Confirmed vits no.[id number] fum 1 tab PO DAILY 07/12/22 03/07/23 27 mg iron-folic acid 800 mcg tablet ( Vitamin) ascorbic acid 100 mg-elderberry tab PO 10/31/22 03/07/23 fruit 50 mg chewable tablet (Airborne (elderberry)) aspirin 81 mg chewable tablet 81 mg PO QDAY 11/28/22 03/07/23 Previous Rx's Medication Instructions Recorded epinephrine 0.3 mg/0.3 mL 0.3 mg (0.3 mL) IM .As Needed as 06/06/22 injection, auto-injector needed PRN anaphylaxis #2 ea levothyroxine 50 mcg tablet 50 mcg PO DAILY #90 tabs 10/31/22 albuterol sulfate 2.5 mg/3 mL 2.5 mg (3 mL) continuous 01/23/23 (0.083 %) solution for nebulization nebulization Q6-8H PRN shortness of breath or wheezing #90 mL albuterol sulfate 90 mcg/actuation 2 inh inhalation Q4H PRN shortness 01/23/23 aerosol inhaler of breath or wheezing #6.7 grams ondansetron 4 mg disintegrating 4 mg PO .q6hr PRN nausea and 01/23/23 tablet vomiting #30 tabs omeprazole 20 mg capsule,delayed 20 mg PO BID #60 caps 03/08/23 release Allergies Allergy/AdvReac Type Severity Reaction Status Date / Time pineapple Allergy Severe Anaphylaxis Verified 03/07/23 14:08 metoclopramide Allergy Intermediate Jittery Verified 03/07/23 14:08 and anxious latex Allergy Mild Unknown Verified 03/07/23 14:08 Sulfa Antibiotics Allergy Intermediate Vomiting Uncoded 03/07/23 14:08 PFSH PFS Medical History Hemorrhage in early ?O20.9 - Hemorrhage in early , unspecified (ICD-10) Fertility testing ?Z31.41 - Encounter for fertility testing (ICD-10) Surgical History H/O eye surgery ?Z98.890 - Other specified postprocedural states (ICD-10) History of endoscopy ?Z98.890 - Other specified postprocedural states (ICD-10) History of colonoscopy ?Z98.890 - Other specified postprocedural states (ICD-10) History of abdominal surgery ?Z98.890 - Other specified postprocedural states (ICD-10) Family History Other Heart disease Mental disorder Seizures Type 2 diabetes mellitus Social History Narrative: Non-smoker Smoking Status: Never smoker Do you use any of these nicotine containing products: None Second hand tobacco smoke exposure: No How often do you have a drink containing alcohol: never How many standard drinks containing alcohol do you have on a typical day: 1 or 2 How often do you have six or more drinks on one occasion: Never AUDIT-C Alcohol total score: 0 Non-prescribed substance use: denies use Caffeine: Yes (soda energy drinks) Little interest or pleasure in doing things: not at all Feeling down, depressed, or hopeless: several days Are you using contraception or practicing any form of control: No service: No Exam Const: Vital Signs, click to edit/add: Vital Signs - 24 hr 03/07/23 20:14 03/07/23 20:20 03/07/23 22:17 Temperature 98.3 F 98.3 F Pulse Rate 98 Pulse Rate [Pulse Oximeter] 116 H 116 H Respiratory Rate 18 18 Blood Pressure 95/77 Blood Pressure [Ri ght Upper Arm] 155/101 H 140/83 H Pulse Oximetry 97 97 96 Oxygen Delivery Me thod Room Air Room Air 03/07/23 22:18 03/07/23 22:30 03/07/23 22:32 Temperature Pulse Rate 98 96 92 Pulse Rate [Pulse Oximeter] Respiratory Rate Blood Pressure 128/76 Blood Pressure [Ri ght Upper Arm] Pulse Oximetry 96 98 97 Oxygen Delivery Me thod 03/07/23 22:33 Temperature Pulse Rate 95 Pulse Rate [Pulse Oximeter] Respiratory Rate Blood Pressure Blood Pressure [Ri ght Upper Arm] Pulse Oximetry 97 Oxygen Delivery Me thod Documenting provider has reviewed patient's vital signs: yes Other: Anxious but in no physical distress. HENMT: Common normals: normocephalic Head and scalp: normocephalic Face and sinus: normal facial exam Mouth: oral and palatal mucosa normal Throat: posterior oropharynx normal Eye: Common normals: conjunctivae normal General eye: normal appearance of both eyes Conjunctiva: conjunctiva(e) normal Neck & C-Spine: Common normals: full ROM and no lymphadenopathy Resp: Common normals: normal respiratory effort, no use of accessory muscles and clear to auscultation bilaterally Effort & inspection: able to speak in complete sentences Auscultation: clear to auscultation bilaterally Cardio: Common normals: regular rate, regular rhythm, S1 normal heart sound, S2 normal heart sound and no murmurs Rate: regular rate Rhythm: regular rhythm Heart sounds: S1 normal and S2 normal GI: Common normals: Normal to inspection, nondistended, normoactive bowel sounds present, soft to palpation, non-tender and no hepatosplenomegaly Palpation: soft and no hepatosplenomegaly Other: Fundal height slightly higher than reported age, movement noted through abdominal exam. Awaiting heart tone exam Extremity: Common normals: normal capillary refill and no pedal edema Neuro: Speech: speech normal Motor exam: no movement abnormalities noted Psych: Attitude: engaged Activity/motor behavior: appropriate eye contact Mood and affect: anxious Insight: insight good Judgement: judgment good Skin: Common normals: no rashes or lesions noted General skin exam: no rashes or lesions noted Course Course ED Course: Patient's bag of vomit examined and it really is very lightly blood streaked, mostly just digested food. I do test this and it is Hemoccult positive. Uncertain if this is GI, pulmonary or upper airway etiology. History and risk factors would suggest GI. Recommend a L of IV fluid, basic labs, chest x-ray. Will start 80 mg of Protonix IV x1 and will give a dose of Carafate. Since she has had multiple episodes, I would favor a period of observation. If she does have observable hemoptysis, then would recommend proceeding with chest CT. heart tones q.4 ordered. Reevaluation(s) Time of Reevaluation #1: 00:02 Reevaluation #1: Reviewed normal chest x-ray findings with patient. She has had 2 total episodes of scant hematemesis here in the ED and it is slowing down considerably. We have observed now for about 3-1/2 hours. We had discussed observation in the hospital. At this time she would prefer to go home. The bleeding really has slowed considerably and she is feeling well. Vital signs remained stable and she has normal heart tones. Her hemoglobin looked excellent. I did offer observation and my rationale for this and she would like to go home. She has her with her and she can come back to the ED right away if the bleeding worsens. She has not had any bloody stools. We discussed that an endoscopy would need to be performed if the bleeding does not stop. She is willing to start a proton pump inhibitor and took the IV medication and Carafate here well. She is willing to do clear liquids only overnight. She will take omeprazole home with her to take 1st thing at 8:00 a.m.. She will stay on this twice daily. She will update her OB provider tomorrow with her progress. If symptoms are not improving, she should come back to the ED and we should arrange an endoscopy. Any concerns should come back right away. She verbalizes understanding and agreement and prefers home discharge. Vital Signs Vital signs: Initial Vital Signs Temperature 98.3 F 03/07/23 20:14 Temperature Source Temporal Artery Scan 03/07/23 20:14 Pulse Rate 116 H 03/07/23 20:14 Respiratory Rate 18 03/07/23 20:14 Blood Pressure 155/101 H 03/07/23 20:14 Blood Pressure Mean 119 H 03/07/23 20:14 Blood Pressure Position Sitting 03/07/23 20:14 Pulse Oximetry 97 03/07/23 20:14 Oxygen Delivery Method Room Air 03/07/23 20:14 Vital Signs Temperature 98.3 F 03/07/23 20:14 Pulse Rate 116 H 03/07/23 20:14 Respiratory Rate 18 03/07/23 20:14 Blood Pressure 155/101 H 03/07/23 20:14 Pulse Oximetry 97 03/07/23 20:14 Oxygen Delivery Method Room Air 03/07/23 20:14 Temperature 98.3 F 03/07/23 20:20 Pulse Rate 95 03/07/23 22:33 Respiratory Rate 18 03/07/23 20:20 Blood Pressure 128/76 03/07/23 22:32 Pulse Oximetry 97 03/07/23 22:33 Oxygen Delivery Method Room Air 03/07/23 20:20 Medications Administered Medications: Discontinued Medications Generic Name Dose Route Start Last Admin Trade Name Freq PRN Reason Stop Dose Admin Sodium Chloride 1,000 mls @ 1,000 mls/hr 03/07/23 21:12 03/07/23 22:57 0.9 % Sodium Chloride 1000 Ml IV 03/07/23 22:11 Infused .Q1H BOONE Infusion Ondansetron HCl 4 mg 03/07/23 21:34 03/07/23 21:55 Ondansetron 2 Mg/Ml Inj IVP 03/07/23 21:35 4 mg ONCE ONE Administration Pantoprazole Sodium 80 mg 03/07/23 21:13 03/07/23 21:35 Pantoprazole Sodium 40 Mg Inj IVP 03/07/23 21:14 80 mg ONCE ONE Administration Sucralfate 1 gm 03/07/23 21:34 03/07/23 22:05 Sucralfate 1 Gm Tablet PO 03/07/23 21:35 1 gm ONCE ONE Administration Medical Decision Making Lab Data Labs: Lab Results 03/07/23 Range/Units 21:10 WBC 10.73 (4.50-11.00) K/uL RBC 4.47 (4.00-5.20) m/uL Hgb 12.8 (12.0-16.0) gm/dL Hct 39.7 (33.0-51.0) % MCV 89 (80-100) fL MCH 29 (26-34) pg MCHC 32 (32-36) gm/dL RDW Coeff of Quincy 14.5 (11.5-15.5) % Plt Count 303 (140-440) K/uL Neut % (Auto) 72.0 (42.0-72.0) % Lymph % (Auto) 17.7 L (20-44) % Catron % (Auto) 8.9 (0.0-11.0) % Eos % (Auto) 0.8 (0.0-7.0) % Baso % (Auto) 0.1 (0.0-3.0) % Neut # (Auto) 7.73 H (1.7-7.0) K/uL Lymph # (Auto) 1.90 (0.90-2.90) K/uL Catron # (Auto) 1.00 H (0.00-0.90) K/UL Eos # (Auto) 0.09 (0.00-0.50) K/uL Baso # (Auto) 0.01 (0.00-0.30) K/uL Abs Immat Gran (auto) 0.05 (0.00-0.30) K/uL Imm/Tot Granulo (auto) 0.5 % INR 0.95 (0.91-1.10) D-Dimer Quant (PE/DVT) 0.64 H (0.00-0.50) ug/ml Sodium 136 (135-149) mmol/L Potassium 3.6 (3.6-5.1) mmol/L Chloride 107 (96-114) mmol/L Carbon Dioxide 22 (20-32) mmol/L Anion Gap 7 (7-15) mEq/L BUN 10 (5-24) mg/dL Creatinine 0.5 (0.5-1.5) mg/dL Estimated Creat Clear 159.99 Estimated GFR 129 ml/min Glucose 120 H (60-115) mg/dL Lactate 1.1 (0.5-1.9) mmol/L Calcium 9.0 (8.4-10.6) mg/dL Imaging Data Chest x-ray: Attestation: I have reviewed the pertinent imaging results. My impression: Negative chest x-ray Radiologist's impression: IMPRESSION: No acute cardiopulmonary abnormality. Dictated by Fuentes Lombardo MD @ 03/07/2023 10:30:57 PM Discharge Plan Discharge Clinical Impression: Acute upper gastrointestinal bleeding Patient Disposition: Home w/ Parent or Adult Condition: Improved Instructions: Gastrointestinal Bleeding (ED) Additional Instructions: As we discussed, the fact that the bleeding is slowing down is a good sign. You were given stomach acid medicine to help heal this. Most likely the bleeding started from aspirin use. I would like for you to hold your aspirin for the next week and then decide with your Ob provider to gather if and when it should be restarted. We discussed coming into the hospital for observation and continued IV medication. At this time, you would prefer to go home which is reasonable since things are looking better. Your labs look very good and your baby has remained active with normal heart tones. I would like for you to take omeprazole twice daily for the next 10 days and then once daily for a total of 6 weeks. If your Ob provider stops this sooner, please take their advice. You will be given an omeprazole pill to take at home at 8:00 a.m.. Clear liquids only overnight tonight until 8:00 a.m.. Since you do have a responsible person who can help monitor things at home with you, I am willing to do a trial of observation at home. I would want her to come back to the emergency department right away if the bleeding worsens. Soft foods only for the next 24 hours. I am sending the prescription for the rest of the omeprazole to your pharmacy. Please update your Ob provider around noon tomorrow of how things are going. If the bleeding still has not stopped, we should consider coming back in and performing and endoscopy. Remember that if you start having bloody stools, this is a sign of faster bleeding and you should come in right away. Continue watching movement and kick counts. Activity Level: Light activity Discharge Diet: Clear Liquid Prescriptions: New omeprazole 20 mg capsule,delayed release(DR/EC) 20 mg PO BID Qty: 60 0RF No Action aspirin 81 mg tablet,chewable 81 mg PO QDAY epinephrine 0.3 mg/0.3 mL auto-injector 0.3 mg IM .As Needed as needed PRN (Reason: anaphylaxis) Qty: 2 1RF ascorbic acid-elderberry fruit [Airborne (elderberry)] 100-50 mg tablet,chewable PO levothyroxine 50 mcg tablet 50 mcg PO DAILY Qty: 90 0RF ondansetron 4 mg tablet,disintegrating 4 mg PO .q6hr PRN (Reason: nausea and vomiting) Qty: 30 1RF albuterol sulfate 2.5 mg /3 mL (0.083 %) solution for nebulization 2.5 mg continuous nebulization Q6-8H PRN (Reason: shortness of breath or wheezing) Qty: 90 3RF albuterol sulfate 90 mcg/actuation HFA aerosol inhaler 2 inh inhalation Q4H PRN (Reason: shortness of breath or wheezing) Qty: 6.7 0RF Vitamin 27 mg iron- 800 mcg tablet 1 tab PO DAILY Follow Up/Referrals: Tee Souza PA-C [Primary Care Provider] - Stand Alone Forms: [facility] Info Instructions
[2023-03-07 21:19] LABS: Lactate* 1.1 mmol/L (0.5-1.9)
[2023-03-07 21:22] LABS: Basophils Absolute Auto 0.01 K/uL (0.00-0.30); Basophils Percent Auto 0.1 % (0.0-3.0); Eosinophils Absolute Auto 0.09 K/uL (0.00-0.50); Eosinophils Percent Auto 0.8 % (0.0-7.0); Hematocrit 39.7 % (33.0-51.0); Hemoglobin* 12.8 gm/dL (12.0-16.0); Immature Granulocytes Abs Auto 0.05 K/uL (0.00-0.30); Immature Granulocytes Pct Auto 0.5 %; Lymphocytes Percent Auto 17.7 % (20-44); Mean Corpuscular HGB Conc 32 gm/dL (32-36); Mean Corpuscular Hemoglobin 29 pg (26-34); Mean Corpuscular Volume 89 fL (80-100); Monocytes Percent Auto 8.9 % (0.0-11.0); Neutrophils Absolute Auto 7.73 K/uL (1.7-7.0); Platelet Count* 303 K/uL (140-440); RDW Coefficient of Variation % 14.5 % (11.5-15.5); Red Blood Count 4.47 m/uL (4.00-5.20); White Blood Count* 10.73 K/uL (4.50-11.00)
[2023-03-07 21:24] LABS: Slide Review Reflex No
[2023-03-07] MEDS: 0.9 % SODIUM CHLORIDE 1000 ml 1,000 ML IV (21:33)
[2023-03-07] MEDS: PANTOPRAZOLE SODIUM 40 MG INJ 80 MG IVP (21:35)
[2023-03-07 21:37] LABS: INR 0.95 (0.91-1.10); Prothrombin Time 13.2 Seconds
[2023-03-07 21:40] LABS: D Dimer Quantitative* 0.64 ug/ml (0.00-0.50)
[2023-03-07] MEDS: ONDANSETRON 2 MG/ML inj 4 MG IVP (21:55)
--- NOTE | 2023-03-07 22:03 | ED.NURSE ---
pt had approx 100cc of bright blood in her emesis.
[2023-03-07] MEDS: SUCRALFATE 1 GM TABLET PO (22:05)
--- NOTE | 2023-03-07 22:26 | ED.NURSE ---
pt had another emesis of 100cc, with more bright red blood.
[2023-03-07 23:01] LABS: Chloride* 107 mmol/L (96-114); Sodium* 136 mmol/L (135-149)
[2023-03-07 23:02] LABS: Potassium* 3.6 mmol/L (3.6-5.1)
[2023-03-07 23:04] LABS: Creatinine* 0.5 mg/dL (0.5-1.5); Est. Creatinine Clearance* 159.99; Estimated Glomerular Filt Rate 129 ml/min
[2023-03-07 23:05] LABS: Anion Gap 7 mEq/L (7-15); Blood Urea Nitrogen* 10 mg/dL (5-24); Carbon Dioxide* 22 mmol/L (20-32); Glucose* 120 mg/dL (60-115)
[2023-03-08 00:02] VITALS: BP 115/60
== END 2023-03-08 00:21 | disposition home or self-care (01) ==
PROVIDERS: Emergency Provider Family Medicine; PCP Physician Assistant Medical
DX: K92.2 Gastrointestinal hemorrhage, unspecified (principal)
CPT/HCPCS: 36415; 71046; 80048; 83605; 85025; 85379; 85610; 96374; 96375; 99284; A9270; C9113; J2405; J7030

== ENCOUNTER 2023-03-20 10:04 | Outpatient (CLI) | payer BC, SELFPAY ==
--- OUTSIDE RECORDS SUMMARY | 2023-03-20 09:35 | XMS_ITS | Referral Summary ---
Author Name Unknown Organization [facility] Address [address] [place] [address] Care Team Providers Care Post Office Clerk Name Role Phone Elsewhere, Pcp Primary Care Provider Unavailabl e Source Comments Patient records contain information from all sites at [facility]. For routine questions regarding patient records, call [phone] during business hours, M-F 8:00 AM - 5:00 PM Central Time. Record requests for emergency care only can be directed to [phone] at any time.[facility] Allergies Active Allergy Reactions Criticality Noted Date Comments Metoclopramide Hcl Anxiety 12/28/2016 Morphine Hives (Reselect Reaction) 12/28/2016 Pineapple Anaphylaxis High 12/28/2016 Sulfa (Sulfonamide Antibiotics) GI intolerance 12/28/2016 Medications Medication Sig Dispensed Refills Start Date End Date Status buPROPion XL (WELLBUTRIN XL) 150 mg 24 hr tablet Take 150 mg by mouth daily. 0 08/20/2018 Active cyclobenzaprine (FLEXERIL) 10 mg tablet Take 10 mg by mouth. 0 07/12/2017 Active LORazepam (ATIVAN) 0.5 mg tablet Take 0.5 mg by mouth. 0 04/24/2018 Active ondansetron ODT (ZOFRAN-ODT) 4 mg disintegrating tablet Take 4 mg by mouth every 6 (six) hours as needed. 1 08/09/2018 Active Social History Tobacco Use Types Packs/Day Years Used Date Smoking Tobacco: Never Assessed Social Connection and Isolat ion Panel [NHANES] Answer Date Recorded Frequency of Communication w ith Friends and Family More than three times a week 09/01/2018 Frequency of Social Gatherin gs with Friends and Family Once a week 09/01/2018 Attends Buddhism Services Never 09/01 Active Member of Clubs or Organizations No 09/01/2018 Attends Club or Organization Meetings Never 09/01/2018 Marital Status Not on file 09/01/2018 AUDIT-C Answer Date Recorded Frequency of Alcohol Consumption 2-4 times a mon th 09/01/2018 Average Number of Drinks 1 or 2 019 Frequency of Binge Drinking Never 08/10 Overall Financial Resource Strain (CARDIA) Answe r Date Recorded Difficulty of Paying Living Expenses Somewhat mauricio rd 09/01/2018 [facility] - Occupational Stress Questionnaire Answer Date Recorded Feeling of Stress Rather much 09/01/2018 Exercise Vital Sign Answer Date Recorde d Days of Exercise per Week 0 days 2018 Minutes of Exercise per Session 0 min 09/01/2018 Hunger Vital Sign Answer Date Recorded Worried About Running Out of Food in the Last Ye ar Never true 09/01/2018 Ran Out of Food in the Last Year Never true 09/01/2018 PRAPARE - Transportation Answer Date Re corded Lack of Transportation (Medical) No 09/01/2018 Lack of Transportation (Non-Medical) No 09/01/2018 Nutrition Answer Date Recorded Nutrition: EVOO Fat Source Unknown 05/16 Nutrition: Servings of Fruits/Vegetables per Day Not on file 05/16/2020 Dental Answer Date Recorded Dental: Regular Dentist Unknown 05/19/19 21 Education Answer Date Recorded What is the highest level of school you have completed or the highest degree you have received? Some college, no degree 09/01/2018 Sex and Gender Information Value Date Recorded Sex Assigned at Not on file Gender Identity Not on file Sexual Orientation Not on file Last Filed Vital Signs Vital Sign Reading Time Taken Comments Blood Pressure 108/94 09/01/2018 10:12 AM CDT Pulse 87 09/01/2018 10:12 AM CDT Temperature 36.6 ??C (97.9 ??F) 09/01/2018 10:12 AM C DT Respiratory Rate - - Oxygen Saturation - - Inhaled Oxygen Concentration - - Weight 85.4 kg (188 lb 4.4 oz) 09/01/2018 10:12 AM CDT Height 171.2 cm (5' 7.4) 09/01/2018 10:12 AM CD T Body Mass Index 29.14 09/01/2018 10:12 AM CDT Plan of Treatment Not on file Care Teams Post Office Clerk Relationship Specialty Start Date End Date Elsewhere, Pcp PCP - General Family Medicine 05/22/18
--- OUTSIDE RECORDS SUMMARY | 2023-03-20 09:35 | XMS_ITS | Encounter Summary ---
Author Name Unknown Organization [facility] Address [address], [place] [address] Care Team Providers Care Flange Machine Operator Name Role Phone Needs Pcp, Assignment Primary Care Provider [phone] Reason for Visit * Reason Comments Vomiting Pt is 7 weeks pregna nt, she has been having nausea and vomiting for the two days. She is taking B6 and Unisom however it is not relieving her symptoms Encounter Details Date Type Department Care Team Description 10/18/2022 10:40 AM CDT Office Visit [facility] [address] [place] [address] Christina Toribio MD [address] [place] [address] Excessive vomiting in Social History Tobacco Use Types Packs/Day Years Used Date Smoking Tobacco: Never Smokeless Tobacco: Never Tobacco Cessation:Counseling Given: Not Answered Alcohol Use Standard Drinks/Week Comments Not Currently 0 (1 standard drink = 0.6 oz pur e alcohol) Sex and Gender Information Value Date Recorded Sex Assigned at Not on file Gender Identity Not on file Sexual Orientation Not on file documented as of this encounter Last Filed Vital Signs Vital Sign Reading Time Taken Comments Blood Pressure 109/51 10/18/2022 12:30 PM CDT Pulse 76 10/18/2022 12:30 PM CDT Temperature 36.7 ??C (98.1 ??F) 10/18/2022 10:32 AM C DT Respiratory Rate 18 10/18/2022 10:32 AM CDT Oxygen Saturation 99% 10/18/2022 10:32 AM CDT Inhaled Oxygen Concentration - - Weight 87.1 kg (192 lb) 10/18/2022 10:32 AM CDT Height 170.2 cm (5' 7) 10/18/2022 10:32 AM CDT Body Mass Index 30.07 10/18/2022 10:32 AM CDT documented in this encounter Progress Notes * Christina Toribio MD - 10/18/2022 10:40 AM CDT Note dictated * Christina Toribio MD - 10/18/2022 12:00 AM CDT NAME: GHADA RODGERS CSN: [id number] CLINIC NOTE DATE OF SERVICE: 10/18/2022 : 1990 CHIEF COMPLAINT: Vomiting. HISTORY OF PRESENT ILLNESS: This pleasant 32-year-old, 3, para 0, with two 1st trimester miscarriages, comes in today at 7 weeks gestation. She has been vomiting. She has been trying to eat crackers. She talked to the nurse line, they said she should do Unisom and vitamin B6, which she really has not been trying very much. She had some drops that she got [id number] that are supposed to help with nauseousness, but have not been helping. She denies any abdominal pain, denies any urinary symptoms. Denies any back pain. Denies a headache. Does not feel lightheaded or dizzy. Patient denies any vaginal discharge or vaginal bleeding. PAST MEDICAL HISTORY: Reviewed through [facility]. PAST SURGICAL HISTORY: Reviewed through [facility]. MEDICATIONS: Reviewed through [facility]. ALLERGIES: REVIEWED THROUGH [employer]. OBJECTIVE: VITAL SIGNS: Blood pressure 109/51, temperature 98.1, pulse 76, respirations 18, O2 saturation is 99% on room air. GENERAL: Alert and oriented, in no apparent distress. LUNGS: Clear. HEART: Regular. ABDOMEN: Soft, nontender. EXTREMITIES: No rash or cyanosis. DIAGNOSTIC STUDIES: Glucose 93, sodium 138, potassium 4.1, chloride 105, CO2 is 24, calcium is 9.5,BUN is 7, creatinine is 0.6. White blood cell count 8.7, hemoglobin 14.7, hematocrit 44.9, platelets are 342. Urinalysis shows less than 1.005 specific gravity. Urine test is positive. Quantitative HCG is currently pending. URGENT CARE COURSE: Patient was given 1 L of lactated Ringer and after that she felt significantly better. She had no further vomiting and felt hungry. ASSESSMENT: First trimester nausea and vomiting. PLAN: I did talk to the patient about eating small meals throughout the day. She is also going to try Unisom and vitamin B6 on a scheduled dose, what the marketing intern had outlined for her to do it 4 times a day. She will follow up if symptoms are not significantly improving. Certainly, if she has any vaginal bleeding, abdominal pain, she should follow up and she is in agreement with the plan and all of her questions were answered. MD LEANNE CHRISTINE/LÁZARO /[id number] documented in this encounter Nursing Notes * Melany Doe, DENISA - 10/18/2022 10:40 AM CDT Ghada Rodgers is a 32 y.o.female presents to the Urgent Care for Vomiting (Pt is 7 weeks ,she has been having nausea and vomiting for the two days. She is taking B6 and Unisom however it isnot relieving her symptoms ) How long have you had the nausea or vomiting symptoms? 2 day(s) Since your symptoms started, has it improved, worsened or stay the same? Stayed the same Are you experiencing any vomiting? YES How frequent has the vomiting occurred? Off and on all day, every hour What does the vomit look like? Yellow, clear Are you urinating less than usual? No Have you had a fever? No Have you been able to keep fluids down? Yes, only water Have you had abdominal pain,bloating,diarrhea? Yes abdominal pain and diarrhea Have you had a headache, felt lightheaded or faintness? Yes headache Have you tried any treatments? YES What products have you tried? B6, Unisom Did the treatment help your symptoms? Has not changed Patient requests an excuse letter for work/school: No Melany Doe LPN 10/18/2022, 10:28 AM documented in this encounter Plan of Treatment Not on file documented as of this encounter Procedures Procedure Name Priority Date/Time Associated Diagnosis Comments TEST (URINE) STAT 10/18/2022 12:14 PM CDT Excessive vomiting in CBC AND DIFFERENTIAL PANEL STAT 10/18/2022 11:35 AM CDT Excessive vomiting in COMPLETE BLOOD COUNT-W/DIFF STAT 10/18/2022 11:35 AM CDT Excessive vomiting in BASIC METABOLIC PANEL STAT 10/18/2022 11:35 AM CDT Excessive vomiting in HCG, QUANTITATIVE, SERUM Routine 10/18/2022 11:35 AM CDT Excessive vomiting in UA WITH MICROSCOPIC STAT 10/18/2022 1 1:32 AM CDT Excessive vomiting in documented in this encounter Results * (ABNORMAL) Test (Urine) - Collect in Lab (10/18/2022 12:14 PM CDT) HCG, Urine Positive(A ) Negative 10/18/2022 12:37 PM CDT [facility] Urine Non-blood Collection / Unknown 10/18/2022 12:14 PM CDT 10/18/2022 12:31 PM CDT Christina Toribio MD LAB_1 [facility] [address] [place] [address], [facility] [phone] * (ABNORMAL) Complete Blood Count-W/Diff (10/18/2022 11:35 AM CDT) WBC 8.7 3.5 - 10.5 x10(9)/L 10/18/2022 11:56 AM [facility] RBC 5.30(H) 3.90 - 5.03 x10(12)/L 10/18/2022 11:56 AM [facility] Hemoglobin 14.7 12.0 - 15.5 g/dL 10/18/2022 11:56 AM [facility] HCT 44.9(H) 34.9 - 44.5 % 10/18/2022 11:56 AM [facility] MCV 84.7 80.0 - 100.0 fL 10/18/2022 11:56 AM [facility] MCH 27.7 27.6 - 33.3 pg 10/18/2022 11:56 AM [facility] MCHC 32.7 31.5 - 35.2 g/dL 10/18/2022 11:56 AM [facility] RDW 13.7 11.9 - 15.5 % 10/18/2022 11:56 AM [facility] Platelets 342 150 - 450 x10(9)/L 10/18/2022 11:56 AM [facility] Automated NRBC 0 <=0 /100 WBC 10/18/2022 11:56 AM [facility] Neutrophil Absolute 6.5 1.7 - 7.0 10(9)/L 10/18/2022 11:56 AM [facility] Lymphocyte Absolute 1.5 1.0 - 4.8 10(9)/L 10/18/2022 11:56 AM [facility] Monocyte Absolute 0.6 0.2 - 0.9 10(9)/L 10/18/2022 11:56 AM [facility] Eosinophil Absolute 0.1 0.0 - 0.5 10(9)/L 10/18/2022 11:56 AM [facility] Basophil Absolute 0.0 0.0 - 0.3 10(9)/L 10/18/2022 11:56 AM [facility] Immature Granulocyte % 0.5 0.0 - 0.5 % 10/18/2022 11:56 AM [facility] Blood Venipuncture / Unknown 10/18/2022 11:35 AM CDT 10/18/2022 11:52 AM CDT Christina Toribio MD LAB_1 Performing Organization Address City/[facility]/ZIP Co de Phone Number [facility] [address] [place] [address] [phone] * (ABNORMAL) HCG, Quantitative, Serum (10/18/2022 11:35 AM CDT) [facility] HCG, Quantitative 52,830(H) <=4 mIU/mL 10/18/2022 5:44 PM CDT [facility] Blood Venipuncture / Unknown 10/18/2022 11:35 AM CDT 10/18/2022 11:52 AM CDT Narrative [facility] - 10/18/2022 5:44 PM CDT Expected ranges Negative: <5 mIU/mL Indeterminate: 5-25 mIU/mL Positive: >25 mIU/mL Suggest repeat testing of indeterminate result in 72 hours. Christina Toribio MD LAB_1 Performing Organization Address [facility]/ZIP Co de Phone Number [facility] [address] * Basic Metabolic Panel (10/18/2022 11:35 AM CDT) [facility] Sodium 138 136 - 145 mmol/L 10/18/2022 12:14 PM [facility] Potassium 4.1 3.5 - 5.1 mmol/L 10/18/2022 12:14 PM [facility] Chloride 105 98 - 109 mmol/L 10/18/2022 12:14 PM [facility] CO2 24 20 - 29 mmol/L 10/18/2022 12:14 PM [facility] Anion Gap 9 7 - 16 mmol/L 10/18/2022 12:14 PM [facility] Calcium 9.5 8.4 - 10.4 mg/dL 10/18/2022 12:14 PM [facility] BUN 7 7 - 26 mg/dL 10/18/2022 12:14 PM [facility] Creatinine 0.60 0.55 - 1.02 mg/dL 10/18/2022 12:14 PM [facility] Glucose 93 70 - 100 mg/dL 10/18/2022 12:14 PM [facility] Comment:The given reference range is for the fasting state. Non-fasting reference range for glucose is 70 - 180 mg/dL. Hours Fasting 0 10/18/2022 12:14 PM [facility] GFR, Estimated >60 >60 mL/min/1.7 3m2 10/18/2022 12:14 PM [facility] Blood Venipuncture / Unknown 10/18/2022 11:35 AM CDT 10/18/2022 11:52 AM CDT Christina Toribio MD LAB_1 [facility] [address] [place] [address], [facility] [phone] * (ABNORMAL) UA with Microscopic: Clean Catch (10/18/2022 11:32 AM CDT) Urine Color Straw 10/18/2022 12:37 PM [facility] Urine Clarity Clear Clear 10/18/2022 12:37 PM [facility] Specific [place], Urine <=1.005(A) 1.005 - 1.030 10/18/2022 12:37 PM [facility] PH Urine 6.0 5.0 - 8.0 10/18/2022 12:37 PM [facility] Protein, Urine Qual (mg/dL) Negative Neg/Trace 10/18/2022 12:37 PM [facility] Glucose Urine Qual (mg/dL) Negative Negative 10/18/2022 12:37 PM [facility] Ketones, Urine (mg/dL) Negative Negative 10/18/2022 12:37 PM [facility] Urobilinogen, Urine (EU/dL) 0.2 <2.0 10/18/2022 12:37 PM [facility] Bilirubin Urine Negative Negative 10/18/2022 12:37 PM [facility] Blood, Urine Negative Neg/Trace 10/18/2022 12:37 PM CDT [facility] Nitrite Urine Negative Negative 10/18/2022 12:37 PM CDT [facility] Leukocyte Est. Negative Negative 10/18/2022 12:37 PM CDT [facility] Red Blood Cells 0-3 0 - 3 /HPF 10/18/2022 12:37 PM CDT [facility] White Blood Cells 0-5 0 - 5 /HPF 10/18/2022 12:37 PM T [facility] Squamous Epithelial Cells Occasional None Seen, Occasional, Few /HPF 10/18/2022 12:37 PM CDT [facility] Urine Source Clean Catch 10/18/2022 12:37 PM T [facility] Urine URINE SPECIMEN COLLECTION, CLEAN CATCH / Unknown Non-blood Collection / Unknown 10/18/2022 11:32 AM CDT 10/18/2022 12:23 PM CDT Christina Toribio MD LAB_1 Performing Organization Address City/State/[facility] Co de Phone Number [facility] [address] [place] [address], [facility] [phone] documented in this encounter Visit Diagnoses Diagnosis Excessive vomiting in Unspecified vomiting of , unspecified as to episode of care documented in this encounter Administered Medications Inactive Administered Medications - up to 3 most recent administrations Medication Order MAR Action Action Date Dose Rate Site LACTATED RINGERS IV SOLUTION (AMB) 1,000 mL 1,000 mL, Intravenous, ONCE, On Cassandra 10/18/22 at 1145, For 1 dose Started 10/18/2022 11:50 AM CDT 1,000 mL documented in this encounter Care Teams Flange Machine Operator Relationship Specialty Start Date End Date Needs Pcp, [place] [address] PCP - General 09/19/21 documented as of this encounter
--- OUTSIDE RECORDS SUMMARY | 2023-03-20 09:35 | XMS_ITS | Clinical Summary ---
Author Name Unknown Organization [facility] Address [address] [place] [address] Care Team Providers Care Memorial Adviser Name Role Phone Elsewhere, Pcp Primary Care Provider Unavailabl e Source Comments Patient records contain information from all sites at [facility]. For routine questions regarding patient records, call [phone] during business hours, M-F 8:00 AM - 5:00 PM Central Time. Record requests for emergency care only can be directed to [phone] at any time.[facility] Allergies Active Allergy Reactions Criticality Noted Date [...] and Family Once a week 09/01/2018 Attends [employer] Never 09/01 Active Member of Clubs [...] Paying Living Expenses Somewhat mauricio rd 09/01/2018 [facility] - Occupational Stress [...] 09/01/2018 10:12 AM CDT Plan of Treatment Health Maintenance Due Date Last Done Comments Cervical Cancer Screening 1992 HIV Screening 1992 Hepatitis B Vaccines (1 of 3 - 3-dose series) 1992 Hepatitis C Screening 1992 COVID-19 Vaccine (#1) 1992 Influenza Vaccine (#1) 2022 0, 04/15/2018, 03/28/2017 Depression Screening (Annual PHQ-2) 03/11/2023 DTaP,Tdap,and Td Vaccines (2 - Td or Tdap) 04/15/2028 04/15/2018 Pneumococcal vaccine (0-64 years) Aged Out 04/15/2018 No longer eligible b ased on patient's age to complete this topic HPV Vaccines Aged Out No longer eligi ble based on patient's age to complete this topic Care Teams Memorial Adviser Relationship Specialty Start Date End Date Elsewhere, Pcp PCP - General Family Medicine 05/22/18
--- OUTSIDE RECORDS SUMMARY | 2023-03-20 09:35 | XMS_ITS | Clinical Summary ---
Author Name Unknown Organization [facility] Address [address] [place] [address] Care Team Providers Care Certified Pedorthotist Name Role Phone Needs Pcp, Assignment Primary Care Provider [phone] Source Comments You are receiving this document as you are listed as the primary care provider,follow-up provider, or the patient has been referred to you for consultation.This is in compliance with the Medicare and[facility] EHR Incentive Program,which states Providers who transition their patient to another setting of careor provider of care or refers their patient to another provider of care shouldprovide summary care record for each transition of care or referral. [facility] Active Allergy Reactions Criticality Noted Date Comments Metoclopramide Other, see comments 09/19/2021 Restless legs Sulfa Antibiotics Hives High 09/19/2021 Medications Medication Sig Dispensed Refills Start Date End Date Status buPROPion (WELLBUTRIN XL) 150 MG 24 hour release tablet Take 300 mg by mouth daily. 0 08/23/2021 Active levothyroxine (SYNTHROID) 50 MCG tablet Take 1 Tablet (50 mcg) by mouth daily. 0 07/05/2021 Active VIT-FE FUMARATE-FA OR 0 Active Active Problems No known active problems Social History Tobacco Use Types Packs/Day Years [...] Mass Index 30.07 10/18/2022 10:32 AM CDT Plan of Treatment Health Maintenance Due Date Last Done Comments Cervical Cancer Screening Due 1992 Hep C Screening (Preventive Services) 1992 HepB (1) 1992 COVID-19 Vaccine (#1) 1992 HIV Screening (Preventive Services) 2008 Adult Preventive Visit 2010 Influenza (#1) 2022 04/21/2019, 04/15/2018, 03/28/2017 DTaP/Tdap/Td (2 - Tdap) 04/15/2028 04/15/2018 Zoster/Shingles (1 of 2) 2042 Pneumococcal Aged Out 04/15/2018 No longer eligi ble based on patient's age to complete this topic HPV Vaccine Aged Out No longer eligi ble based on patient's age to complete this topic HepA Aged Out No longer eligi ble based on patient's age to complete this topic Hib Aged Out No longer eligi ble based on patient's age to complete this topic IPV (Polio) Aged Out No longer eligi ble based on patient's age to complete this topic MCV4 Aged Out No longer eligi ble based on patient's age to complete this topic Care Teams Certified Pedorthotist Relationship Specialty Start Date End Date Needs Pcp, [place] [address] PCP - General 09/19/21
--- OUTSIDE RECORDS SUMMARY | 2023-03-20 09:35 | XMS_ITS ---
Author Name Unknown Organization [facility] Address [address] [place] [address] Care Team Providers Care Bow Machine Operator Name Role Phone Unavailable Unavailable Unavailable Surgery Details Not on file Complications Check Surgery Details section. Procedure Estimated Blood Loss Check Surgery Details section. Procedure Findings Check Surgery Details section. Procedure Specimens Taken Check Surgery Details section.
--- OUTSIDE RECORDS SUMMARY | 2023-03-20 09:35 | XMS_ITS | Clinical Summary ---
Author Name Unknown Organization [facility] Address [place], [place] [address] Care Team Providers Care Reproduction Order Processor Name Role Phone Pcp, No Primary Care Provider Unavailabl e Allergies Active Allergy Reactions Criticality Noted Date Comments Morphine Hives 12/28/2016 Pineapple Anaphylaxis High 12/28/2016 Metoclopramide Hcl Anxiety 12/28/2016 Sulfa (Sulfonamide Antibiotics) Vomiting 12/28/2016 Other reaction(s): GI intolerance Medications Medication Sig Dispensed Refills Start Date End Date Status [id number] 6-dha 30 mg iron-1mg -200 mg cap Take by mouth. 0 04/16/2018 Active ondansetron (ZOFRAN ODT) 4 mg disintegrating tabletIndications:Na usea and vomiting, intractability of vomiting not specified, unspecified vomiting type Place 1 tablet on the tongue every 8 hours if needed for Nausea/Vomiting. 15 tablet 0 03/26/2019 Active benzonatate (TESSALON) 100 mg capsuleIndications:C ough Take 1 capsule by mouth 3 times daily if needed for Cough. 15 capsule 0 03/26/2019 Active albuterol (PROVENTIL) 0.083 % neb solution 0 04/13/2019 Active levothyroxine (SYNTHROID) 50 mcg tablet 0 03/25/2019 Active predniSONE (DELTASONE) 20 mg tablet TAKE 1 TABLET BY MOUTH TWICE A DAY FOR 5 DAYS AT START OF WHEEZING/EXACERBA TION, REPEAT IF NEEDED 0 04/21/2019 Active dextroamphetamine-am phetamine (ADDERALL XR) 20 mg Extended-Release capsule Take 20 mg by mouth once daily 0 Active buPROPion (WELLBUTRIN XL) 150 mg Extended-Release tabletIndications:an xiety with depression Take 150 mg by mouth once daily. Indications: anxiousness associated with depression 0 Active escitalopram oxalate (LEXAPRO) 20 mg tablet Take 20 mg by mouth once daily. 0 02/22/2020 Active lidocaine, viscous, (XYLOCAINE) 2 % liquidIndications:Va ginal irritation Apply to area of irritation every 6 hours as needed for pain 100 mL 0 11/17/2021 Active albuterol (PROVENTIL) 0.083 % neb solutionIndications: Exacerbation of asthma, unspecified asthma severity, unspecified whether persistent Inhale 3 mL (2.5 mg) via a nebulizer three times daily. 90 mL 0 12/29/2021 Active ondansetron (ZOFRAN ODT) 4 mg disintegrating tabletIndications:Ex cessive vomiting in Place 2 Tablets (8 mg) on the tongue every 8 hours if needed for Nausea/Vomiting. 30 Tablet 0 11/07/2022 Active Active Problems Problem Noted Date Diagnosed Date Diarrhea 04/28/2018 Overview: Colonoscopy 04/2018 normal, repeat at age 52 Generalized abdominal pain 04/28/2018 Nausea and vomiting 04/28/2018 Overview: EGD 04/2017 normal, recommend gastric emptying study if symptoms persist Estimated Date of Delivery Comme nts Yes 06/08/2023 Social History Tobacco Use Types Packs/Day Years Used Date Smoking Tobacco: Never Cigarettes Smokeless Tobacco: Never Tobacco Cessation:Counseling Given: Yes Alcohol Use Standard Drinks/Week Comments Yes 0 (1 standard drink = 0.6 oz pur e alcohol) rare Estimated Date of Delivery Comme nts Yes 06/08/2023 Sex and Gender Information Value Date Recorded Sex Assigned at Not on file Gender Identity Not on file Sexual Orientation Not on file Obstetrics History Para Term AB IAB SAB Ectopic Multiple Livin g Live Births 2 1 1 Date Outcome GA Total Labor Labor/2nd/3rd Weight Sex Delivery Anes PTL Shira A1 A5 Name Cl in SAB Current Last Filed Vital Signs Vital Sign Reading Time Taken Comments Blood Pressure 136/75 11/07/2022 8:15 AM CDT Pulse 79 11/07/2022 8:15 AM CDT Temperature 36.5 ??C (97.7 ??F) 11/07/2022 6:39 AM CD T Respiratory Rate 16 11/07/2022 6:39 AM CDT Oxygen Saturation 99% 11/07/2022 7:44 AM CDT Inhaled Oxygen Concentration - - Weight 88 kg (194 lb) 11/07/2022 6:39 AM CDT Height 170.2 cm (5' 7) 11/07/2022 6:39 AM CDT Body Mass Index 30.38 11/07/2022 6:39 AM CDT Plan of Treatment Health Maintenance Due Date Last Done Comments COVID-19 vaccine series (#1) 1992 Tdap 2003 Depression screening for age 12+ 2004 HIV for age 15-65 2007 Hepatitis C screening for ag e 18-79 2010 Tetanus booster 2012 BMI (ht and wt on same day) for age 18+ 12/28/2017 12/28/2016 Influenza for age 9-49 11/09/2022 Pap test for age 21-65 10/31/2025 , 10/31/2022, 04/14/2018 Pneumococcal series for age 6-64 Aged Out No longer eligible b ased on patient's age to complete this topic Care Teams Reproduction Order Processor Relationship Specialty Start Date End Date Pcp, No . PCP - General 11/17/21
--- OUTSIDE RECORDS SUMMARY | 2023-03-20 09:35 | XMS_ITS | Encounter Summary ---
Author Name Unknown Organization [facility] Address [address] [place] [address] Care Team Providers Care Global Transportation Manager Name Role Phone Elsewhere, Pcp Primary Care Provider Unavailabl e Reason for Referral * Outpatient (Routine) - Closed Specialty Diagnoses / Procedures Referred By Contact Referred To Contact Gastroenterology and Hepatology Diagnoses Nausea And Vomiting Morris Rodriguez M.D. [address] [place] [phone] [facility] Referral ID Status Reason Start Date Expiration Date Visits Re quested Visits Authorized [id number] Closed 05/21/2018 05/21/2019 1 1 Encounter Details Date Type Department Care Team (Late st Contact Info) Description 05/21/2018 [facility] [address] [place] [address] Morris Rodriguez M.D. [address] [address] Nausea And Vomiting (Primary Dx) Social History Tobacco Use Types Packs/Day Years Used Date Smoking Tobacco: Never Assessed Sex and Gender Information Value Date Recorded Sex Assigned at Not on file Gender Identity Not on file Sexual Orientation Not on file documented as of this encounter Plan of Treatment Scheduled Referrals Name Type Priority Associated Diagnoses Order Schedule Gastroenterology & Hepatology Referral Outpatient Referral Routine Nausea And Vomiting Expected: 05/21/2018 (Approximate), Expires: 05/21/2021 documented as of this encounter Visit Diagnoses Diagnosis Nausea And Vomiting- Primary documented in this encounter Additional Health Concerns Infection Onset Date Last Indicated Resolved Time COVID19 Pending 07/28/2021 07/28/2021 07/30/2021 2 :30 AM CDT COVID19 07/28/2021 07/28/2021 08/17/2021 7:25 AM CDT documented as of this encounter Care Teams Global Transportation Manager Relationship Specialty Start Date End Date Elsewhere, Pcp PCP - General Family Medicine 05/22/18 documented as of this encounter
== END 2023-03-20 10:05 | disposition home or self-care (01) ==
PROVIDERS: PCP Physician Assistant Medical; Visit Provider Obstetrics & Gynecology
DX: O44.43 Low lying placenta NOS or without hemorrhage, third trimester (principal); Z3A.28 28 weeks gestation of pregnancy
CPT/HCPCS: 84443; 86592

== ENCOUNTER 2023-03-20 12:30 | Outpatient (CLI) | payer BC, SELFPAY ==
--- NOTE | 2023-03-20 13:00 | CRLHL7_ITS ---
For Patients: As a result of the Century Cures Act, medical imaging exams and procedure reports are released immediately into your electronic medical record. You may view this report before your referring provider. If you have questions, please contact your health care provider. INDICATION: Follow up low lying placenta TECHNIQUE: Limited transabdominal and transvaginal two-dimensional harris-scale ultrasound examination. COMPARISON: 01/23/2023 FINDINGS: There is a living fetus in vertex lie with gestational age of 28 weeks 4 days by LMP and EDC of 06/08/2023. The heart rate is measured at 138 beats per minute and the rhythm appears regular. The amniotic fluid volume is within normal limits with single deepest pocket of 7.1 cm. The placenta is posterior and superior to the cervical os. There is no evidence of previa. The inferior end of the placenta is 1.2 cm from the internal os. The cervical length is normal at 3.8 cm. IMPRESSION: 1. Living fetus in vertex lie with gestational age of 28 weeks 4 days by LMP and EDC of 06/08/2023. 2. Posterior placenta with no evidence of previa. Inferior end of the placenta 1.2 cm from the internal os. Dictated by Stew He MD @ 03/21/2023 4:35:52 PM (Electronically Signed)
== END 2023-03-20 12:31 | disposition home or self-care (01) ==
LOC: US 12:30
PROVIDERS: PCP Physician Assistant Medical; Visit Provider Obstetrics & Gynecology
DX: O44.43 Low lying placenta NOS or without hemorrhage, third trimester (principal); Z3A.28 28 weeks gestation of pregnancy
CPT/HCPCS: 76816; 76817

== ENCOUNTER 2023-03-23 03:27 | Emergency (ER) | payer BC, SELFPAY ==
[2023-03-23] MEDS: 0.9 % SODIUM CHLORIDE 1000 ml 1,000 ML IV ×2 (03:35→04:15)
[2023-03-23 03:39] VITALS: BP 132/74; PULSE 89; RESP 20; TEMP 36.7; O2SAT 99; BMI 32.4
--- NOTE | 2023-03-23 04:00 | ED.NURSE ---
OB nurse to do non stress test to monitor baby.
--- NOTE | 2023-03-23 04:04 | ED_ITS ---
HPI - Nausea/Vomiting/Diarrhea General Chief complaint: Nausea/Vomiting Stated complaint: 29 weeks -Vomiting/nauseous-Cramping Time Seen by Provider: 03/23/23 03:39 History of Present Illness HPI Narrative: patient is a 33-year-old woman who is 29 weeks with her 1st baby who presents with several days of nausea and vomiting. She has had no diarrhea. She has had no abdominal pain she has had no vaginal discharge or bleeding. No fevers no chills no night sweats. She has recently diagnosed with gestational diabetes as well. Patient arrives after contacting the OB unit. Bedside OB monitoring is normal. Related Data Home Medications Medication Instructions Recorded Confirmed vits no.[id number]-ferrous fum 1 tab PO DAILY 07/12/22 03/20/23 27 mg iron-folic acid 800 mcg tablet ( Vitamin) ascorbic acid 100 mg-elderberry tab PO 10/31/22 03/20/23 fruit 50 mg chewable tablet (Airborne (elderberry)) Previous Rx's Medication Instructions Recorded epinephrine 0.3 mg/0.3 mL 0.3 mg (0.3 mL) IM .As Needed as 06/06/22 injection, auto-injector needed PRN anaphylaxis #2 ea levothyroxine 50 mcg tablet 50 mcg PO DAILY #90 tabs 10/31/22 albuterol sulfate 2.5 mg/3 mL 2.5 mg (3 mL) continuous 01/23/23 (0.083 %) solution for nebulization nebulization Q6-8H PRN shortness of breath or wheezing #90 mL albuterol sulfate 90 mcg/actuation 2 inh inhalation Q4H PRN shortness 01/23/23 aerosol inhaler of breath or wheezing #6.7 grams ondansetron 4 mg disintegrating 4 mg PO .q6hr PRN nausea and 01/23/23 tablet vomiting #30 tabs omeprazole 20 mg capsule,delayed 20 mg PO BID #60 caps 03/08/23 release Blood Glucose Meter #1 ea 03/20/23 Test Strips #100 ea 03/20/23 lancets #100 ea 03/20/23 Allergies Allergy/AdvReac Type Severity Reaction Status Date / Time pineapple Allergy Severe Anaphylaxis Verified 03/23/23 03:41 metoclopramide Allergy Intermediate Jittery Verified 03/23/23 03:41 and anxious latex Allergy Mild Unknown Verified 03/23/23 03:41 Sulfa Antibiotics Allergy Intermediate Vomiting Uncoded 03/20/23 14:20 Review of Systems Status of ROS: Reports: 10 or more systems reviewed and unremarkable except as noted in History and below [facility] Medical History Gestational diabetes ?O24.419 - Gestational diabetes mellitus in , unspecified control (ICD-10) Hemorrhage in early ?O20.9 - Hemorrhage in early , unspecified (ICD-10) Fertility testing ?Z31.41 - Encounter for fertility testing (ICD-10) Surgical History H/O eye surgery ?Z98.890 - Other specified postprocedural states (ICD-10) History of endoscopy ?Z98.890 - Other specified postprocedural states (ICD-10) History of colonoscopy ?Z98.890 - Other specified postprocedural states (ICD-10) History of abdominal surgery ?Z98.890 - Other specified postprocedural states (ICD-10) Family History Other Heart disease Mental disorder Seizures Type 2 diabetes mellitus Social History Narrative: Non-smoker Smoking Status: Never smoker Do you use any of these nicotine containing products: None Second hand tobacco smoke exposure: No How often do you have a drink containing alcohol: never How many standard drinks containing alcohol do you have on a typical day: 1 or 2 How often do you have six or more drinks on one occasion: Never AUDIT-C Alcohol total score: 0 Non-prescribed substance use: denies use Caffeine: Yes (soda energy drinks) Little interest or pleasure in doing things: not at all Feeling down, depressed, or hopeless: several days Are you using contraception or practicing any form of control: No service: No Exam Narrative: Exam Narrative: EXAM GENERAL: Patient appears Uncomfortable EYES: No scleral icterus. LYMPH: No supraclavicular or cervical lymphadenopathy. SKIN: Visible skin seen during exam normal or with benign process only. EXT: No dependent lower extremity pedal edema. HEART: Regular rate and rhythm with no murmurs, rubs, or gallops. LUNGS: Clear to auscultation bilaterally with no crackles or wheezes. ABD: Soft, non tender, non distended. gravid PSYCH: Good eye contact, speech is not pressured. Const: Vital Signs, click to edit/add: Vital Signs - 24 hr 03/23/23 03:39 Temperature 98.0 F Pulse Rate [Right Pulse Oximeter] 89 Respiratory Rate 20 Blood Pressure [Ri ght Upper Arm] 132/74 Pulse Oximetry 99 Oxygen Delivery Me thod Room Air Course Course ED Course: CBC comprehensive metabolic panel ordered. 2 L normal saline given 4 mg IV Zofran given. Vital Signs Vital signs: Initial Vital Signs Temperature 98.0 F 03/23/23 03:39 Temperature Source Temporal Artery Scan 03/23/23 03:39 Pulse Rate 89 03/23/23 03:39 Respiratory Rate 20 03/23/23 03:39 Blood Pressure 132/74 03/23/23 03:39 Blood Pressure Mean 93 03/23/23 03:39 Blood Pressure Position Sitting 03/23/23 03:39 Pulse Oximetry 99 03/23/23 03:39 Oxygen Delivery Method Room Air 03/23/23 03:39 Vital Signs Temperature 98.0 F 03/23/23 03:39 Pulse Rate 89 03/23/23 03:39 Respiratory Rate 20 03/23/23 03:39 Blood Pressure 132/74 03/23/23 03:39 Pulse Oximetry 99 03/23/23 03:39 Oxygen Delivery Method Room Air 03/23/23 03:39 Temperature 98.0 F 03/23/23 03:39 Pulse Rate 89 03/23/23 03:39 Respiratory Rate 20 03/23/23 03:39 Blood Pressure 132/74 03/23/23 03:39 Pulse Oximetry 99 03/23/23 03:39 Oxygen Delivery Method Room Air 03/23/23 03:39 Medications Administered Medications: Generic Name Dose Route Start Last Admin Trade Name Freq PRN Reason Stop Dose Admin Sodium Chloride 1,000 mls @ 1,000 mls/hr 03/23/23 04:03 03/23/23 04:15 0.9 % Sodium Chloride 1000 Ml IV 03/23/23 05:02 1,000 mls/hr .Q1H BOONE Administration Sodium Chloride 1,000 mls @ 1,000 mls/hr 03/23/23 04:03 03/23/23 04:25 0.9 % Sodium Chloride 1000 Ml IV 03/23/23 05:02 Infused .Q1H BOONE Infusion Discontinued Medications Generic Name Dose Route Start Last Admin Trade Name Karla PRN Reason Stop Dose Admin Ondansetron HCl 4 mg 03/23/23 04:03 03/23/23 04:13 Ondansetron 2 Mg/Ml Inj IVP 03/23/23 04:04 4 mg ONCE ONE Administration MDM - Nausea/Vomiting/Diarrhea MDM Narrative Medical decision making narrative: Patient presents at 29 weeks with nausea and vomiting. Laboratory studies are stable bedside assessment of the fetus is unremarkable. Her vital signs and exam were otherwise normal. I did treated with 2 L normal saline 25 mg of Benadryl and 4 mg of Zofran she does have Zofran at home she is discharged home to advance her diet activity as tolerated Zofran as needed continued OBGYN follow-up. Lab Data Labs: Lab Results 03/23/23 Range/Units 04:03 WBC 10.44 (4.50-11.00) K/uL RBC 4.81 (4.00-5.20) m/uL Hgb 13.6 (12.0-16.0) gm/dL Hct 42.4 (33.0-51.0) % MCV 88 (80-100) fL MCH 28 (26-34) pg MCHC 32 (32-36) gm/dL RDW Coeff of [place] 14.3 (11.5-15.5) % Plt Count 315 (140-440) K/uL Neut % (Auto) 68.8 (42.0-72.0) % Lymph % (Auto) 18.9 L (20-44) % Bryan % (Auto) 10.2 (0.0-11.0) % Eos % (Auto) 1.3 (0.0-7.0) % Baso % (Auto) 0.2 (0.0-3.0) % Neut # (Auto) 7.18 H (1.7-7.0) K/uL Lymph # (Auto) 2.00 (0.90-2.90) K/uL Bryan # (Auto) 1.10 H (0.00-0.90) K/UL Eos # (Auto) 0.14 (0.00-0.50) K/uL Baso # (Auto) 0.02 (0.00-0.30) K/uL Abs Immat Gran (auto) 0.06 (0.00-0.30) K/uL Imm/Tot Granulo (auto) 0.6 % Sodium 138 (135-149) mmol/L Potassium 3.9 (3.6-5.1) mmol/L Chloride 105 (96-114) mmol/L Carbon Dioxide 25 (20-32) mmol/L Anion Gap 8 (7-15) mEq/L BUN 8 (5-24) mg/dL Creatinine 0.5 (0.5-1.5) mg/dL Estimated Creat Clear 158.53 Estimated GFR 129 ml/min Glucose 95 (60-115) mg/dL Calcium 9.6 (8.4-10.6) mg/dL Total Bilirubin 0.2 (0.1-1.5) mg/dL AST 19 (12-35) U/L ALT 14 (4-35) U/L Alkaline Phosphatase 88 (40-150) U/L Total Protein 7.6 (6.0-8.3) g/dL Albumin 4.1 (3.3-5.0) g/dL Discharge Plan Discharge Clinical Impression: Vomiting affecting Patient Disposition: Home, Self-Care Condition: Stable Instructions: Nausea and Vomiting in (ED) Activity Level: No Restrictions Discharge Diet: Regular Prescriptions: No Action epinephrine 0.3 mg/0.3 mL auto-injector 0.3 mg IM .As Needed as needed PRN (Reason: anaphylaxis) Qty: 2 1RF ascorbic acid-elderberry fruit [Airborne (elderberry)] 100-50 mg tablet,chewable PO levothyroxine 50 mcg tablet 50 mcg PO DAILY Qty: 90 0RF ondansetron 4 mg tablet,disintegrating 4 mg PO .q6hr PRN (Reason: nausea and vomiting) Qty: 30 1RF albuterol sulfate 2.5 mg /3 mL (0.083 %) solution for nebulization 2.5 mg continuous nebulization Q6-8H PRN (Reason: shortness of breath or wheezing) Qty: 90 3RF albuterol sulfate 90 mcg/actuation HFA aerosol inhaler 2 inh inhalation Q4H PRN (Reason: shortness of breath or wheezing) Qty: 6.7 0RF omeprazole 20 mg capsule,delayed release(DR/EC) 20 mg PO BID Qty: 60 0RF Vitamin 27 mg iron- 800 mcg tablet 1 tab PO DAILY (DME) Blood Glucose Meter Misc See Rx Instructions .MEDSUPPLY Qty: 1 0RF Rx Instructions: As directed (DME) lancets Misc See Rx Instructions .MEDSUPPLY Qty: 100 3RF Rx Instructions: Test 4 times daily. AM fasting and 2 hours after meals. (DME) Test Strips Misc See Rx Instructions .MEDSUPPLY Qty: 100 3RF Rx Instructions: Test 4 times daily. AM fasting and 2 hours after meals. Follow Up/Referrals: Tee Souza PA-C [Primary Care Provider] - Stand Alone Forms: [facility] Info Inst[facility]
--- OUTSIDE RECORDS SUMMARY | 2023-03-23 04:09 | XMS_ITS | Clinical Summary ---
Author Name Unknown Organization [facility] Address [address] [place] [address] Care Team Providers Care Gas Combustion Engineer Name Role Phone Needs Pcp, Assignment Primary Care Provider [phone] Source Comments You are receiving this document as you are listed as the primary care provider,follow-up provider, or the patient has been referred to you for consultation.This is in compliance with the Medicare and[facility] EHR Incentive Program,which states Providers who transition their patient to another setting of careor provider of care or refers their patient to another provider of care shouldprovide summary care record for each transition of care or referral. [facility] Allergies Active Allergy Reactions Criticality Noted Date [...] age to complete this topic Care Teams Gas Combustion Engineer Relationship Specialty Start Date End Date Needs Pcp, [place] [address] PCP - General 09/19/21
--- OUTSIDE RECORDS SUMMARY | 2023-03-23 04:09 | XMS_ITS | Clinical Summary ---
Author Name Unknown Organization [facility] Address [address] [place] [address] Care Team Providers Care Ice Resurfacing Machine Operators Name Role Phone Elsewhere, Pcp Primary Care Provider Unavailabl e Source Comments Patient records contain information from all sites at [facility]. For routine questions regarding patient records, call [phone] during business hours, M-F 8:00 AM - 5:00 PM Central Time. Record requests for emergency care only can be directed to [phone] at any time.[facility] Allergies Active Allergy Reactions Criticality Noted Date [...] and Family Once a week 09/01/2018 Attends [employer] Never 09/01 Active Member of Clubs [...] Paying Living Expenses Somewhat [address] 09/01/2018 [facility] - [...] age to complete this topic Care Teams Ice Resurfacing Machine Operators Relationship Specialty Start Date End Date Elsewhere, Pcp PCP - General Family Medicine 05/22/18
--- OUTSIDE RECORDS SUMMARY | 2023-03-23 04:09 | XMS_ITS | Referral Summary ---
Author Name Unknown Organization [facility] Address [address] [place] [address] Care Team Providers Care Product Manager Name Role Phone Elsewhere, Pcp Primary Care Provider Unavailabl e Source Comments Patient records contain information from all sites at [facility]. For routine questions regarding patient records, call [phone] during business hours, M-F 8:00 AM - 5:00 PM Central Time. Record requests for emergency care only can be directed to [phone] at any time.[facility] Allergies Active Allergy Reactions Criticality Noted Date [...] and Family Once a week 09/01/2018 Attends [facility] Never 09/01 Active Member of Clubs [...] Paying Living Expenses Somewhat [address] 09/01/2018 [facility] - Occupational [...] of Treatment Not on file Care Teams Product Manager Relationship Specialty Start Date End Date Elsewhere, Pcp PCP - General Family Medicine 05/22/18
--- OUTSIDE RECORDS SUMMARY | 2023-03-23 04:09 | XMS_ITS | Encounter Summary ---
Author Name Unknown Organization [facility] Address [address] [address] Care Team Providers Care Diesel Engine Inspector Name Role Phone Needs Pcp, Assignment Primary Care Provider [phone] Reason for Visit * Reason Comments Vomiting Pt is 7 weeks pregna nt, she has been having nausea and vomiting for the two days. She is taking B6 and Unisom however it is not relieving her symptoms Encounter Details Date Type Department Care Team Description 10/18/2022 10:40 AM CDT Office Visit [facility] [address] [place] [address] Christina Toribio MD [address] [place] [address] Excessive vomiting in Social History [...] 12:00 AM CDT NAME: GHADA RODGERS CSN: [id number] CLINIC NOTE DATE OF SERVICE: 10/18/2022 : [...] She had some drops that she got [id number] that are supposed to help with nauseousness, but have not been helping. She denies any abdominal pain, denies any urinary symptoms. Denies any back pain. Denies a headache. Does not feel lightheaded or dizzy. Patient denies any vaginal discharge or vaginal bleeding. PAST MEDICAL HISTORY: Reviewed through [employer]. PAST SURGICAL HISTORY: Reviewed through [employer]. MEDICATIONS: Reviewed through [employer]. ALLERGIES: REVIEWED THROUGH [employer]. OBJECTIVE: VITAL SIGNS: Blood pressure 109/51, temperature [...] B6 on a scheduled dose, what the job press feeder had outlined for her to do it 4 times a day. She will follow up if symptoms are not significantly improving. Certainly, if she has any vaginal bleeding, abdominal pain, she should follow up and she is in agreement with the plan and all of her questions were answered. MD LEANNE CHRISTINE/LÁZARO /[id number] documented in this encounter Nursing Notes * [...] Positive(A ) Negative 10/18/2022 12:37 PM CDT [facility] Urine Non-blood Collection / Unknown 10/18/2022 12:14 PM CDT 10/18/2022 12:31 PM CDT Christina Toribio MD LAB_1 [facility] [address] [place] [address], [facility] [phone] * (ABNORMAL) Complete Blood Count-W/Diff (10/18/2022 11:35 AM CDT) WBC 8.7 3.5 - 10.5 x10(9)/L 10/18/2022 11:56 AM [facility] RBC 5.30(H) 3.90 - 5.03 x10(12)/L 10/18/2022 11:56 AM [facility] Hemoglobin 14.7 12.0 - 15.5 g/dL 10/18/2022 11:56 AM [facility] HCT 44.9(H) 34.9 - 44.5 % 10/18/2022 11:[address] [facility] MCV 84.7 80.0 - 100.0 fL 10/18/2022 11:56 AM [facility] MCH 27.7 27.6 - 33.3 pg 10/18/2022 11:56 AM [facility] MCHC 32.7 31.5 - 35.2 g/dL 10/18/2022 11:56 AM [facility] RDW 13.7 11.9 - 15.5 % 10/18/2022 11:56 AM [facility] Platelets 342 150 - 450 x10(9)/L 10/18/2022 11:56 AM [facility] Automated NRBC 0 <=0 /100 WBC 10/18/2022 11:56 AM [facility] Neutrophil Absolute 6.5 1.7 - 7.0 10(9)/L 10/18/2022 11:56 AM [facility] Lymphocyte Absolute 1.5 1.0 - 4.8 10(9)/L 10/18/2022 11:56 AM [facility] Monocyte Absolute 0.6 0.2 - 0.9 10(9)/L 10/18/2022 11:56 AM [facility] Eosinophil Absolute 0.1 0.0 - 0.5 10(9)/L 10/18/2022 11:[address] [facility] Basophil Absolute 0.0 0.0 - 0.3 10(9)/L 10/18/2022 11:56 AM [facility] Immature Granulocyte % 0.5 0.0 - 0.5 % 10/18/2022 11:56 AM [facility] Blood Venipuncture / Unknown 10/18/2022 11:35 AM CDT 10/18/2022 11:52 AM CDT Christina Toribio MD LAB_1 Performing Organization Address City/[facility]/ZIP Co de Phone Number [facility] [address] [place] [address] [phone] * (ABNORMAL) HCG, Quantitative, Serum (10/18/2022 11:35 AM CDT) [facility] HCG, Quantitative 52,830(H) <=4 mIU/mL 10/18/2022 5:44 PM CDT [facility] Blood Venipuncture / Unknown 10/18/2022 11:35 AM CDT 10/18/2022 11:52 AM CDT Narrative [facility] - 10/18/2022 5:44 PM CDT Expected ranges Negative: <5 mIU/mL Indeterminate: 5-25 mIU/mL Positive: >25 mIU/mL Suggest repeat testing of indeterminate result in 72 hours. Christina Toribio MD LAB_1 Performing Organization Address [facility]/ZIP Co de Phone Number [facility] [address] * Basic Metabolic Panel (10/18/2022 11:35 AM CDT) [facility] Sodium 138 136 - 145 mmol/L 10/18/2022 12:[address] [facility] Potassium 4.1 3.5 - 5.1 mmol/L 10/18/2022 12:[address] [facility] Chloride 105 98 - 109 mmol/L 10/18/2022 12:[address] [facility] CO2 24 20 - 29 mmol/L 10/18/2022 12:[address] [facility] Anion Gap 9 7 - 16 mmol/L 10/18/2022 12:[address] [facility] Calcium 9.5 8.4 - 10.4 mg/dL 10/18/2022 12:[address] [facility] BUN 7 7 - 26 mg/dL 10/18/2022 12:[address] [facility] Creatinine 0.60 0.55 - 1.02 mg/dL 10/18/2022 12:[address] [facility] Glucose 93 70 - 100 mg/dL 10/18/2022 12:[address] [facility] Comment:The given reference range is for the fasting state. Non-fasting reference range for glucose is 70 - 180 mg/dL. Hours Fasting 0 10/18/2022 12:[address] [facility] GFR, Estimated >60 >60 mL/min/1.7 3m2 10/18/2022 12:[address] [facility] Blood Venipuncture / Unknown 10/18/2022 11:35 AM CDT 10/18/2022 11:52 AM CDT Christina Toribio MD LAB_1 [facility] [address] [place] [address], [facility] [phone] * (ABNORMAL) UA with Microscopic: Clean Catch (10/18/2022 11:32 AM CDT) Urine Color Straw 10/18/2022 12:[address] [facility] Urine Clarity Clear Clear 10/18/2022 12:[address] [facility] Specific [place], Urine <=1.005(A) 1.005 - 1.030 10/18/2022 12:[address] [facility] PH Urine 6.0 5.0 - 8.0 10/18/2022 12:[address] [facility] Protein, Urine Qual (mg/dL) Negative Neg/Trace 10/18/2022 12:[address] [facility] Glucose Urine Qual (mg/dL) Negative Negative 10/18/2022 12:[address] [facility] Ketones, Urine (mg/dL) Negative Negative 10/18/2022 12:[address] [facility] Urobilinogen, Urine (EU/dL) 0.2 <2.0 10/18/2022 12:[address] [facility] Bilirubin Urine Negative Negative 10/18/2022 12:[address] [facility] Blood, Urine Negative Neg/Trace 10/18/2022 12:37 PM CDT [facility] Nitrite Urine Negative Negative 10/18/2022 12:37 PM CDT [facility] Leukocyte Est. Negative Negative 10/18/2022 12:37 PM CDT [facility] Red Blood Cells 0-3 0 - 3 /HPF 10/18/2022 12:37 PM CDT [facility] White Blood Cells 0-5 0 - 5 /HPF 10/18/2022 12:37 PM T [facility] Squamous Epithelial Cells Occasional None Seen, Occasional, Few /HPF 10/18/2022 12:37 PM CDT [facility] Urine Source Clean Catch 10/18/2022 12:37 PM T [facility] Urine URINE SPECIMEN COLLECTION, CLEAN CATCH / Unknown Non-blood Collection / Unknown 10/18/2022 11:32 AM CDT 10/18/2022 12:23 PM CDT Christina Toribio MD LAB_1 Performing Organization Address City/State/[facility] Co de Phone Number [facility] [address] [place] [address], [facility] [phone] documented in this encounter Visit Diagnoses Diagnosis [...] mL documented in this encounter Care Teams Diesel Engine Inspector Relationship Specialty Start Date End Date Needs Pcp, [place] [address] PCP - General 09/19/21 documented as of this encounter
--- OUTSIDE RECORDS SUMMARY | 2023-03-23 04:09 | XMS_ITS | Encounter Summary ---
Author Name Unknown Organization [facility] Address [address] [place] [address] Care Team Providers Care Steel Erector Apprentice Name Role Phone Elsewhere, Pcp Primary Care Provider Unavailabl e Reason for Referral * Outpatient (Routine) - Closed Specialty Diagnoses / Procedures Referred By Contact Referred To Contact Gastroenterology and Hepatology Diagnoses Nausea And Vomiting Morris Rodriguez M.D. [address] [place] [phone] [facility] Referral ID Status Reason Start Date Expiration Date Visits Re quested Visits Authorized [id number] Closed 05/21/2018 05/21/2019 1 1 Encounter Details Date Type Department Care Team (Late st Contact Info) Description 05/21/2018 [facility] [address] [place] [address] Morris Rodriguez M.D. [address] [address] Nausea And Vomiting (Primary Dx) [...] documented as of this encounter Care Teams Steel Erector Apprentice Relationship Specialty Start Date End Date Elsewhere, Pcp PCP - General Family Medicine 05/22/18 documented as of this encounter
--- OUTSIDE RECORDS SUMMARY | 2023-03-23 04:09 | XMS_ITS ---
Author Name Unknown Organization [facility] Address [address] [place] [address] Care Team Providers Care Core Analysis Operator Name Role Phone Unavailable Unavailable Unavailable Surgery Details Not on file Complications Check Surgery Details section. Procedure Estimated Blood Loss Check Surgery Details section. Procedure Findings Check Surgery Details section. Procedure Specimens Taken Check Surgery Details section.
--- OUTSIDE RECORDS SUMMARY | 2023-03-23 04:09 | XMS_ITS | Clinical Summary ---
Author Name Unknown Organization [facility] Address [place], [place] [address] Care Team Providers Care Production Engine Repairer Name Role Phone Pcp, No Primary Care Provider Unavailabl e Allergies Active Allergy Reactions Criticality Noted Date Comments Morphine Hives 12/28/2016 Pineapple Anaphylaxis High 12/28/2016 Metoclopramide Hcl Anxiety 12/28/2016 Sulfa (Sulfonamide Antibiotics) Vomiting 12/28/2016 Other reaction(s): GI intolerance Medications Medication Sig Dispensed Refills Start Date End Date Status [id number] 6-dha 30 mg iron-1mg -200 mg cap [...] age to complete this topic Care Teams Production Engine Repairer Relationship Specialty Start Date End Date Pcp, No . PCP - General 11/17/21
[2023-03-23] MEDS: ONDANSETRON 2 MG/ML inj 4 MG IVP (04:13)
[2023-03-23 04:16] LABS: Basophils Absolute Auto 0.02 K/uL (0.00-0.30); Basophils Percent Auto 0.2 % (0.0-3.0); Eosinophils Absolute Auto 0.14 K/uL (0.00-0.50); Eosinophils Percent Auto 1.3 % (0.0-7.0); Hematocrit 42.4 % (33.0-51.0); Hemoglobin* 13.6 gm/dL (12.0-16.0); Immature Granulocytes Abs Auto 0.06 K/uL (0.00-0.30); Immature Granulocytes Pct Auto 0.6 %; Lymphocytes Percent Auto 18.9 % (20-44); Mean Corpuscular HGB Conc 32 gm/dL (32-36); Mean Corpuscular Hemoglobin 28 pg (26-34); Mean Corpuscular Volume 88 fL (80-100); Monocytes Percent Auto 10.2 % (0.0-11.0); Neutrophils Absolute Auto 7.18 K/uL (1.7-7.0); Neutrophils Percent Auto 68.8 % (42.0-72.0); Platelet Count* 315 K/uL (140-440); RDW Coefficient of Variation % 14.3 % (11.5-15.5); Red Blood Count 4.81 m/uL (4.00-5.20); White Blood Count* 10.44 K/uL (4.50-11.00)
--- NOTE | 2023-03-23 04:19 | PC.OBNST ---
NST Note NST Note Start: 03/23/23 03:50 Freq: ONCE Status: Active Protocol: Document 03/23/23 04:18 STEFAN (Rec: 03/23/23 04:19 STEFAN [id number]) NST Note 3 Para (# of births) 0 EDC 06/08/23 Gestational Age In Weeks & Days 29 Weeks & 0 Days Patient Presented with Complaint(s) of Nausea and vomiting Reactive Yes Appropriate for Gestational Age Yes APOLINAR Pollack RN Date 03/23/23 Reactive Yes Appropriate for Gestational Age Yes APOLINAR Kimbrough RNC Date 03/23/23 OB NST charge Yes Complete NST Note via Write Note Yes The provider's electronic signature indicates the NST is reactive/appropriate for gestational age. *Note to provider: If an addendum is required, open the patient's chart and click on the note under the Nurse/Allied Health tab.
[2023-03-23 04:25] LABS: Albumin* 4.1 g/dL (3.3-5.0); Chloride* 105 mmol/L (96-114)
[2023-03-23 04:26] LABS: Potassium* 3.9 mmol/L (3.6-5.1); Sodium* 138 mmol/L (135-149)
[2023-03-23 04:28] LABS: Alkaline Phosphatase* 88 U/L (40-150); Anion Gap 8 mEq/L (7-15); Aspartate Amino Transferase* 19 U/L (12-35); Bilirubin Total* 0.2 mg/dL (0.1-1.5); Blood Urea Nitrogen* 8 mg/dL (5-24); Carbon Dioxide* 25 mmol/L (20-32); Creatinine* 0.5 mg/dL (0.5-1.5); Est. Creatinine Clearance* 158.53; Estimated Glomerular Filt Rate 129 ml/min; Total Protein* 7.6 g/dL (6.0-8.3)
[2023-03-23 04:29] LABS: Alanine Aminotransferase* 14 U/L (4-35); Calcium* 9.6 mg/dL (8.4-10.6); Glucose* 95 mg/dL (60-115)
[2023-03-23 04:34] LABS: Slide Review Reflex No
[2023-03-23] MEDS: diphenhydrAMINE 50 MG/ML inj 25 MG IVP (04:45)
[2023-03-23 05:05] VITALS: BP 125/70; PULSE 84; RESP 20; TEMP 36.7; O2SAT 99
[2023-03-23 05:35] VITALS: BP 125/70; PULSE 84; RESP 20; TEMP 36.7
== END 2023-03-23 05:36 | disposition home or self-care (01) ==
PROVIDERS: Emergency Provider Internal Medicine; PCP Physician Assistant Medical
DX: R11.2 Nausea with vomiting, unspecified (principal); Z3A.29 29 weeks gestation of pregnancy
CPT/HCPCS: 36415; 59025; 80053; 85025; 96374; 96375; 99283; J1200; J2405; J7030

== ENCOUNTER 2023-04-05 16:02 | Outpatient (CLI) | payer BC, SELFPAY ==
--- NOTE | 2023-04-05 16:00 | CRLHL7_ITS ---
For Patients: As a result of the Century Cures Act, medical imaging exams and procedure reports are released immediately into your electronic medical record. You may view this report before your referring provider. If you have questions, please contact your health care provider. INDICATION: FOLLOW UP GROWTH, LOW LYING PLACENTA COMPARISON: 03/20/2023 TECHNIQUE: Real time harris scale imaging of the fetus was performed as well as color Doppler and spectral Doppler analysis of the umbilical artery. FINDINGS: Sonographic imaging demonstrates a single living intrauterine gestation. Fetus demonstrates a regular cardiac rate of 129 beats per minute. Fetus has a vertex position. The placenta lies posteriorly. Amniotic fluid volume appears normal and there is a single deepest vertical pocket: 6.7 cm. The estimated weight is 1919gm which lies at the 82nd %. On the prior OB ultrasound exam dated 01/23/2023 the estimated weight was at the 94th%. BPD 95th percentile. HC 97th percentile. AC 69th percentile. FL 69th percentile. The HC/AC ratio measures 1.13 range (0.96-1.11). Transvaginal sonography of the cervix performed. The cervix is closed and measures 4.0 cm. The edge of the placenta is located 1.5-1.6 cm from the internal cervical os. IMPRESSION: Sonographic gestational age 32 weeks 6 days and sonographic due date 05/25/2023. Sonographic age 2 weeks ahead of the clinical age. Estimated weight 82nd percentile. Abdominal circumference 69th percentile. Edge of the posterior placenta is located 1.5-1.6 cm from the internal cervical os. Dictated by Javid Krishnamurthy MD @ 04/08/2023 8:46:29 AM (Electronically Signed)
--- OUTSIDE RECORDS SUMMARY | 2023-04-05 16:05 | XMS_ITS | Encounter Summary ---
Author Name Unknown Organization [facility] Address [address] [place] [address] Care Team Providers Care Machine Brush Maker Name Role Phone Elsewhere, Pcp Primary Care Provider Unavailabl e Reason for Referral * Outpatient (Routine) - Closed Specialty Diagnoses / Procedures Referred By Contact Referred To Contact Gastroenterology and Hepatology Diagnoses Nausea And Vomiting Morris Rodriguez M.D. [address] [place] [phone] [facility] Referral ID Status Reason Start Date Expiration Date Visits Re quested Visits Authorized [id number] Closed 05/21/2018 05/21/2019 1 1 Encounter Details Date Type Department Care Team (Late st Contact Info) Description 05/21/2018 [facility] [address] [place] [address] Morris Rodriguez M.D. [address] [address] Nausea And Vomiting (Primary Dx) [...] documented as of this encounter Care Teams Machine Brush Maker Relationship Specialty Start Date End Date Elsewhere, Pcp PCP - General Family Medicine 05/22/18 documented as of this encounter
--- OUTSIDE RECORDS SUMMARY | 2023-04-05 16:05 | XMS_ITS | Clinical Summary ---
Author Name Unknown Organization [facility] Address [place], [place] [address] Care Team Providers Care Department Head [employer] Name Role Phone Pcp, No Primary Care Provider Unavailabl e Allergies Active Allergy Reactions Criticality Noted Date Comments Morphine Hives 12/28/2016 Pineapple Anaphylaxis High 12/28/2016 Metoclopramide Hcl Anxiety 12/28/2016 Sulfa (Sulfonamide Antibiotics) Vomiting 12/28/2016 Other reaction(s): GI intolerance Medications Medication Sig Dispensed Refills Start Date End Date Status [id number] 6-dha 30 mg iron-1mg -200 mg cap [...] age to complete this topic Care Teams Department Head [employer] Relationship Specialty Start Date End Date Pcp, No . PCP - General 11/17/21
--- OUTSIDE RECORDS SUMMARY | 2023-04-05 16:05 | XMS_ITS | Referral Summary ---
Author Name Unknown Organization [facility] Address [address] [place] [address] Care Team Providers Care Line Construction Superintendent Name Role Phone Elsewhere, Pcp Primary Care Provider Unavailabl e Source Comments Patient records contain information from all sites at [facility]. For routine questions regarding patient records, call [phone] during business hours, M-F 8:00 AM - 5:00 PM Central Time. Record requests for emergency care only can be directed to [phone] at any time.[facility] Allergies Active Allergy Reactions Criticality Noted [...] and Family Once a week 09/01/2018 Attends Sabianist Services Never 09/01 Active Member of Clubs [...] Paying Living Expenses Somewhat mauricio rd 09/01/2018 [facility] - [...] of Treatment Not on file Care Teams Line Construction Superintendent Relationship Specialty Start Date End Date Elsewhere, Pcp PCP - General Family Medicine 05/22/18
--- OUTSIDE RECORDS SUMMARY | 2023-04-05 16:05 | XMS_ITS | Encounter Summary ---
Author Name Unknown Organization [facility] Address [address] [address] Care Team Providers Care Bit Grinder Name Role Phone Needs Pcp, Assignment Primary Care Provider [phone] Reason for Visit * Reason Comments Vomiting Pt is 7 weeks pregna nt, she has been having nausea and vomiting for the two days. She is taking B6 and Unisom however it is not relieving her symptoms Encounter Details Date Type Department Care Team Description 10/18/2022 10:40 AM CDT Office Visit [facility] [address] [place] [address] Christina Toribio MD [address] [place] [address] Excessive vomiting in Social History [...] 12:00 AM CDT NAME: GHADA RODGERS CSN: [id number] CLINIC NOTE DATE OF SERVICE: 10/18/2022 : [...] She had some drops that she got [id number] that are supposed to help with nauseousness, but have not been helping. She denies any abdominal pain, denies any urinary symptoms. Denies any back pain. Denies a headache. Does not feel lightheaded or dizzy. Patient denies any vaginal discharge or vaginal bleeding. PAST MEDICAL HISTORY: Reviewed through [employer]. PAST SURGICAL HISTORY: Reviewed through [employer]. MEDICATIONS: Reviewed through [employer]. ALLERGIES: REVIEWED THROUGH [employer]. OBJECTIVE: VITAL SIGNS: Blood pressure 109/51, temperature [...] B6 on a scheduled dose, what the traffic supervisor had outlined for her to do it 4 times a day. She will follow up if symptoms are not significantly improving. Certainly, if she has any vaginal bleeding, abdominal pain, she should follow up and she is in agreement with the plan and all of her questions were answered. MD LEANNE CHRISTINE/LÁZARO /[id number] documented in this encounter Nursing Notes * [...] Positive(A ) Negative 10/18/2022 12:37 PM CDT [facility] Urine Non-blood Collection / Unknown 10/18/2022 12:14 PM CDT 10/18/2022 12:31 PM CDT Christina Toribio MD LAB_1 [facility] [address] [place] [address], [facility] [phone] * (ABNORMAL) Complete Blood Count-W/Diff (10/18/2022 11:35 AM CDT) WBC 8.7 3.5 - 10.5 x10(9)/L 10/18/2022 11:56 AM [facility] RBC 5.30(H) 3.90 - 5.03 x10(12)/L 10/18/2022 11:56 AM [facility] Hemoglobin 14.7 12.0 - 15.5 g/dL 10/18/2022 11:56 AM [facility] HCT 44.9(H) 34.9 - 44.5 % 10/18/2022 11:56 AM [facility] MCV 84.7 80.0 - 100.0 fL 10/18/2022 11:56 AM [facility] MCH 27.7 27.6 - 33.3 pg 10/18/2022 11:56 AM [facility] MCHC 32.7 31.5 - 35.2 g/dL 10/18/2022 11:56 AM [facility] RDW 13.7 11.9 - 15.5 % 10/18/2022 11:56 AM [facility] Platelets 342 150 - 450 x10(9)/L 10/18/2022 11:56 AM [facility] Automated NRBC 0 <=0 /100 WBC 10/18/2022 11:56 AM [facility] Neutrophil Absolute 6.5 1.7 - 7.0 10(9)/L 10/18/2022 11:56 AM [facility] Lymphocyte Absolute 1.5 1.0 - 4.8 10(9)/L 10/18/2022 11:56 AM [facility] Monocyte Absolute 0.6 0.2 - 0.9 10(9)/L 10/18/2022 11:56 AM [facility] Eosinophil Absolute 0.1 0.0 - 0.5 10(9)/L 10/18/2022 11:56 AM [facility] Basophil Absolute 0.0 0.0 - 0.3 10(9)/L 10/18/2022 11:56 AM [facility] Immature Granulocyte % 0.5 0.0 - 0.5 % 10/18/2022 11:56 AM [facility] Blood Venipuncture / Unknown 10/18/2022 11:35 AM CDT 10/18/2022 11:52 AM CDT Christina Toribio MD LAB_1 Performing Organization Address City/[facility]/ZIP Co de Phone Number [facility] [address] [place] [address] [phone] * (ABNORMAL) HCG, Quantitative, Serum (10/18/2022 11:35 AM CDT) [facility] HCG, Quantitative 52,830(H) <=4 mIU/mL 10/18/2022 5:44 PM CDT [facility] Blood Venipuncture / Unknown 10/18/2022 11:35 AM CDT 10/18/2022 11:52 AM CDT Narrative [facility] - 10/18/2022 5:44 PM CDT Expected ranges Negative: <5 mIU/mL Indeterminate: 5-25 mIU/mL Positive: >25 mIU/mL Suggest repeat testing of indeterminate result in 72 hours. Christina Toribio MD LAB_1 Performing Organization Address [facility]/ZIP Co de Phone Number [facility] [address] * Basic Metabolic Panel (10/18/2022 11:35 AM CDT) [facility] Sodium 138 136 - 145 mmol/L 10/18/2022 12:14 PM [facility] Potassium 4.1 3.5 - 5.1 mmol/L 10/18/2022 12:14 PM [facility] Chloride 105 98 - 109 mmol/L 10/18/2022 12:14 PM [facility] CO2 24 20 - 29 mmol/L 10/18/2022 12:14 PM [facility] Anion Gap 9 7 - 16 mmol/L 10/18/2022 12:14 PM [facility] Calcium 9.5 8.4 - 10.4 mg/dL 10/18/2022 12:14 PM [facility] BUN 7 7 - 26 mg/dL 10/18/2022 12:14 PM [facility] Creatinine 0.60 0.55 - 1.02 mg/dL 10/18/2022 12:14 PM [facility] Glucose 93 70 - 100 mg/dL 10/18/2022 12:14 PM [facility] Comment:The given reference range is for the fasting state. Non-fasting reference range for glucose is 70 - 180 mg/dL. Hours Fasting 0 10/18/2022 12:14 PM [facility] GFR, Estimated >60 >60 mL/min/1.7 3m2 10/18/2022 12:14 PM [facility] Blood Venipuncture / Unknown 10/18/2022 11:35 AM CDT 10/18/2022 11:52 AM CDT Christina Toribio MD LAB_1 [facility] [address] [place] [address], [facility] [phone] * (ABNORMAL) UA with Microscopic: Clean Catch (10/18/2022 11:32 AM CDT) Urine Color Straw 10/18/2022 12:37 PM [facility] Urine Clarity Clear Clear 10/18/2022 12:37 PM [facility] Specific [place], Urine <=1.005(A) 1.005 - 1.030 10/18/2022 12:37 PM [facility] PH Urine 6.0 5.0 - 8.0 10/18/2022 12:37 PM [facility] Protein, Urine Qual (mg/dL) Negative Neg/Trace 10/18/2022 12:37 PM [facility] Glucose Urine Qual (mg/dL) Negative Negative 10/18/2022 12:37 PM [facility] Ketones, Urine (mg/dL) Negative Negative 10/18/2022 12:37 PM [facility] Urobilinogen, Urine (EU/dL) 0.2 <2.0 10/18/2022 12:37 PM [facility] Bilirubin Urine Negative Negative 10/18/2022 12:37 PM [facility] Blood, Urine Negative Neg/Trace 10/18/2022 12:37 PM CDT [facility] Nitrite Urine Negative Negative 10/18/2022 12:37 PM CDT [facility] Leukocyte Est. Negative Negative 10/18/2022 12:37 PM CDT [facility] Red Blood Cells 0-3 0 - 3 /HPF 10/18/2022 12:37 PM CDT [facility] White Blood Cells 0-5 0 - 5 /HPF 10/18/2022 12:37 PM T [facility] Squamous Epithelial Cells Occasional None Seen, Occasional, Few /HPF 10/18/2022 12:37 PM CDT [facility] Urine Source Clean Catch 10/18/2022 12:37 PM T [facility] Urine URINE SPECIMEN COLLECTION, CLEAN CATCH / Unknown Non-blood Collection / Unknown 10/18/2022 11:32 AM CDT 10/18/2022 12:23 PM CDT Christina Toribio MD LAB_1 Performing Organization Address City/State/[facility] Co de Phone Number [facility] [address] [place] [address], [facility] [phone] documented in this encounter Visit Diagnoses Diagnosis [...] mL documented in this encounter Care Teams Bit Grinder Relationship Specialty Start Date End Date Needs Pcp, [place] [address] PCP - General 09/19/21 documented as of this encounter
--- OUTSIDE RECORDS SUMMARY | 2023-04-05 16:05 | XMS_ITS | Clinical Summary ---
Author Name Unknown Organization [facility] Address [address] [place] [address] Care Team Providers Care Miller Apprentice Name Role Phone Needs Pcp, Assignment Primary Care Provider [phone] Source Comments You are receiving this document as you are listed as the primary care provider,follow-up provider, or the patient has been referred to you for consultation.This is in compliance with the Medicare and[facility] EHR Incentive Program,which states Providers who transition their patient to another setting of careor provider of care or refers their patient to another provider of care shouldprovide summary care record for each transition of care or referral. [facility] Allergies Active Allergy Reactions Criticality Noted Date [...] age to complete this topic Care Teams Miller Apprentice Relationship Specialty Start Date End Date Needs Pcp, [place] [address] PCP - General 09/19/21
--- OUTSIDE RECORDS SUMMARY | 2023-04-05 16:05 | XMS_ITS ---
Author Name Unknown Organization [facility] Address [address] [place] [address] Care Team Providers Care Resource Recovery Specialist Name Role Phone Unavailable Unavailable Unavailable Surgery Details Not on file Complications Check Surgery Details section. Procedure Estimated Blood Loss Check Surgery Details section. Procedure Findings Check Surgery Details section. Procedure Specimens Taken Check Surgery Details section.
--- OUTSIDE RECORDS SUMMARY | 2023-04-05 16:05 | XMS_ITS | Clinical Summary ---
Author Name Unknown Organization [facility] Address [address] [place] [address] Care Team Providers Care Flatwork Ironer Name Role Phone Elsewhere, Pcp Primary Care Provider Unavailabl e Source Comments Patient records contain information from all sites at [facility]. For routine questions regarding patient records, call [phone] during business hours, M-F 8:00 AM - 5:00 PM Central Time. Record requests for emergency care only can be directed to [phone] at any time.[facility] Allergies Active Allergy Reactions Criticality [...] and Family Once a week 09/01/2018 Attends Adventism Services Never 09/01 Active Member of Clubs [...] Paying Living Expenses Somewhat mauricio rd 09/01/2018 [facility] - Occupational [...] Screening (Annual PHQ-2) 03/11/2023 DTaP,Tdap,and Td Vaccines (3 - Td or Tdap) 03/20/2033 03/20/2023, 04/15/2018 Pneumococcal vaccine (0-64 years) Aged Out 04/15/2018 No longer eligible b ased on patient's age to complete this topic HPV Vaccines Aged Out No longer eligi ble based on patient's age to complete this topic Care Teams Flatwork Ironer Relationship Specialty Start Date End Date Elsewhere, Pcp PCP - General Family Medicine 05/22/18
== END 2023-04-05 16:03 | disposition home or self-care (01) ==
LOC: US 16:03
PROVIDERS: PCP Family Medicine; Visit Provider Obstetrics & Gynecology
DX: O44.43 Low lying placenta NOS or without hemorrhage, third trimester (principal); Z3A.32 32 weeks gestation of pregnancy
CPT/HCPCS: 76816; 76817

== ENCOUNTER 2023-04-23 10:00 | Outpatient (CLI) | payer BC, SELFPAY ==
--- OUTSIDE RECORDS SUMMARY | 2023-04-24 06:14 | XMS_ITS | Clinical Summary ---
Author Name Unknown Organization [facility] Address [place], [place] [address] Care Team Providers Care Orthodontist Name Role Phone Pcp, No Primary Care Provider Unavailabl e Allergies Active Allergy Reactions Criticality Noted Date Comments Morphine Hives 12/28/2016 Pineapple Anaphylaxis High 12/28/2016 Metoclopramide Hcl Anxiety 12/28/2016 Sulfa (Sulfonamide Antibiotics) Vomiting 12/28/2016 Other reaction(s): GI intolerance Medications Medication Sig Dispensed Refills Start Date End Date Status [id number] 6-dha 30 mg iron-1mg -200 mg cap [...] for Nausea/Vomiting. 30 Tablet 0 11/07/2022 Active omeprazole (PRILOSEC) 20 mg Delayed-Release capsule Take 20 mg by mouth once daily. 0 Active famotidine (PEPCID) 20 mg tablet Take 20 mg by mouth two times daily. 0 04/08/2023 Active busPIRone 7.5 mg tablet Take 7.5 mg by mouth two times daily. 0 03/29/2023 Active ipratropium (ATROVENT NASAL) 42 mcg (0.06 %) nasal sprayIndications:Sin us congestion Inhale 2 Sprays to both nostrils three times daily. 15 mL 0 04/20/2023 Active cefdinir (OMNICEF) 300 mg capsuleIndications:A cute bacterial infection of both middle ears,Acute non-recurrent maxillary sinusitis Take 1 Capsule (300 mg) by mouth two times daily for 10 days. 20 Capsule 0 04/20/2023 4 Active Active Problems Problem Noted Date Diagnosed Date Diarrhea 04/28/2018 Overview: Colonoscopy 04/2018 normal, repeat at age 52 Generalized abdominal pain 04/28/2018 Nausea and vomiting 04/28/2018 Overview: EGD 04/2017 normal, recommend gastric emptying study if symptoms persist Estimated Date of Delivery Comme nts Yes 06/08/2023 Encounters Date Type Department Care Team Description 04/20/2023 10:50 AM [employer] Office Visit [facility] [address] [place] [address] Marcus Velazquez PA Sinus Problem (Watery eyes, sore throat, bilateral ear pain, sinus congestion/drainage x 4 days) 04/20/2023 Travel from Last 3 Months Social History Tobacco Use Types Packs/Day Years [...] Sign Reading Time Taken Comments Blood Pressure 126/72 04/20/2023 10:52 AM [employer] Pulse 98 04/20/2023 10:52 AM [employer] Temperature 35.9 ??C (96.7 ??F) 04/20/2023 1 0:52 AM [employer] Respiratory Rate 16 04/20/2023 10:5 2 AM [employer] Oxygen Saturation 98% 04/20/2023 10: 52 AM [employer] Inhaled Oxygen Concentration - - Weight 92.9 kg (204 lb 11.2 oz) 024 10:52 AM [employer] Height 170.2 cm (5' 7) 11/07/2022 6:39 AM CDT Body Mass Index 32.06 11/07/2022 6:39 AM CDT Plan of Treatment [...] 11/09/2022 Pap test for age 21-65 10/31/2025 3, 10/31/2022, 04/14/2018 Pneumococcal series for age 6-64 Aged Out No longer eligible b ased on patient's age to complete this topic Care Teams Orthodontist Relationship Specialty Start Date End Date Pcp, No . PCP - General 11/17/21
--- OUTSIDE RECORDS SUMMARY | 2023-04-24 06:14 | XMS_ITS | Clinical Summary ---
Author Name Unknown Organization [facility] Address [address] [place] [address] Care Team Providers Care Client Representative Name Role Phone Needs Pcp, Assignment Primary Care Provider [phone] Source Comments You are receiving this document as you are listed as the primary care provider,follow-up provider, or the patient has been referred to you for consultation.This is in compliance with the Medicare and[facility] EHR Incentive Program,which states Providers who transition their patient to another setting of careor provider of care or refers their patient to another provider of care shouldprovide summary care record for each transition of care or referral. [facility] Allergies Active Allergy Reactions Criticality Noted Date Comments Metoclopramide Other, see comments 09/19/2021 Restless legs Sulfa Antibiotics Hives High 09/19/2021 Medications Medication Sig Dispensed Refills Start Date End Date Status buPROPion (WELLBUTRIN XL) 150 MG 24 hour release tablet Take 300 mg by mouth daily. 08/23/2021 Active levothyroxine (SYNTHROID) 50 MCG tablet Take 1 Tablet (50 mcg) by mouth daily. 07/05/2021 Active VIT-FE FUMARATE-FA OR Active Active Problems No known active problems [...] age to complete this topic Care Teams Client Representative Relationship Specialty Start Date End Date Needs Pcp, [place] [address] PCP - General 09/19/21
--- OUTSIDE RECORDS SUMMARY | 2023-04-24 06:14 | XMS_ITS | Clinical Summary ---
Author Name Unknown Organization [facility] Address [address] [place] [address] Care Team Providers Care Video Production Assistant Name Role Phone Elsewhere, Pcp Primary Care Provider Unavailabl e Source Comments Patient records contain information from all sites at [facility]. For routine questions regarding patient records, call [phone] during business hours, M-F 8:00 AM - 5:00 PM Central Time. Record requests for emergency care only can be directed to [phone] at any time.[facility] Allergies Active Allergy Reactions Criticality Noted Date [...] and Family Once a week 09/01/2018 Attends Jainism Services Never 09/01 Active Member of Clubs [...] Paying Living Expenses Somewhat maur[address] rd 09/01/2018 [facility] - Occupational [...] Vaccine (#1) 1992 Influenza Vaccine (#1) 2022 , 04/15/2018, 03/28/2017 Depression Screening (Annual PHQ-2) 03/11/2023 DTaP,Tdap,and Td Vaccines (3 - Td or Tdap) 03/20/2033 03/20/2023, 04/15/2018 Pneumococcal vaccine (0-64 years) Aged Out 04/15/2018 No longer eligible b ased on patient's age to complete this topic HPV Vaccines Aged Out No longer eligi ble based on patient's age to complete this topic Care Teams Video Production Assistant Relationship Specialty Start Date End Date Elsewhere, Pcp PCP - General Family Medicine 05/22/18
--- OUTSIDE RECORDS SUMMARY | 2023-04-24 06:14 | XMS_ITS | Encounter Summary ---
Author Name Unknown Organization [facility] Address [address], [place] [address] Care Team Providers Care Customer Contact Sales Associate Name Role Phone Needs Pcp, Assignment Primary Care Provider [phone] Reason for Visit * Reason Comments Vomiting Pt is 7 weeks pregna nt, she has been having nausea and vomiting for the two days. She is taking B6 and Unisom however it is not relieving her symptoms Encounter Details Date Type Department Care Team (Late st Contact Info) Description 10/18/2022 10:40 AM CDT Office Visit [facility] [address] [place] [address] Christina Toribio MD [address] [place] [address] Excessive vomiting in Social History [...] 12:00 AM CDT NAME: GHADA RODGERS CSN: [id number] CLINIC NOTE DATE OF SERVICE: 10/18/2022 : [...] She had some drops that she got [id number] that are supposed to help with nauseousness, but have not been helping. She denies any abdominal pain, denies any urinary symptoms. Denies any back pain. Denies a headache. Does not feel lightheaded or dizzy. Patient denies any vaginal discharge or vaginal bleeding. PAST MEDICAL HISTORY: Reviewed through [facility]. PAST SURGICAL HISTORY: Reviewed through [facility]. MEDICATIONS: Reviewed through [facility]. ALLERGIES: REVIEWED THROUGH [facility]. OBJECTIVE: VITAL SIGNS: Blood pressure 109/51, temperature [...] B6 on a scheduled dose, what the bricklayer sewer had outlined for her to do it 4 times a day. She will follow up if symptoms are not significantly improving. Certainly, if she has any vaginal bleeding, abdominal pain, she should follow up and she is in agreement with the plan and all of her questions were answered. MD LEANNE CHRISTINE/DEVIKAS /[id number] documented in this encounter Nursing Notes * Melany Doe, WELDING EQUIPMENT REPAIRER - 10/18/2022 10:40 AM CDT Ghada Rodgers [...] Positive(A ) Negative 10/18/2022 12:37 PM CDT [facility] Urine Non-blood Collection / Unknown 10/18/2022 12:14 PM CDT 10/18/2022 12:31 PM CDT Christina Toribio MD LAB_1 [facility] [address] [place] [address], [facility] [phone] * (ABNORMAL) Complete Blood Count-W/Diff (10/18/2022 11:35 AM CDT) Pathologist [facility] WBC 8.7 3.5 - 10.5 x10(9)/L 10/18/2022 11:56 AM [facility] RBC 5.30(H) 3.90 - 5.03 x10(12)/L 10/18/2022 11:56 AM [facility] Hemoglobin 14.7 12.0 - 15.5 g/dL 10/18/2022 11:56 AM [facility] HCT 44.9(H) 34.9 - 44.5 % 10/18/2022 11:56 AM [facility] MCV 84.7 80.0 - 100.0 fL 10/18/2022 11:56 AM [facility] MCH 27.7 27.6 - 33.3 pg 10/18/2022 11:56 AM [facility] MCHC 32.7 31.5 - 35.2 g/dL 10/18/2022 11:56 AM [facility] RDW 13.7 11.9 - 15.5 % 10/18/2022 11:56 AM [facility] Platelets 342 150 - 450 x10(9)/L 10/18/2022 11:56 AM [facility] Automated NRBC 0 <=0 /100 WBC 10/18/2022 11:56 AM [facility] Neutrophil Absolute 6.5 1.7 - 7.0 10(9)/L 10/18/2022 11:56 AM [facility] Lymphocyte Absolute 1.5 1.0 - 4.8 10(9)/L 10/18/2022 11:56 AM [facility] Monocyte Absolute 0.6 0.2 - 0.9 10(9)/L 10/18/2022 11:56 AM [facility] Eosinophil Absolute 0.1 0.0 - 0.5 10(9)/L 10/18/2022 11:56 AM [facility] Basophil Absolute 0.0 0.0 - 0.3 10(9)/L 10/18/2022 11:56 AM [facility] Immature Granulocyte % 0.5 0.0 - 0.5 % 10/18/2022 11:56 AM [facility] Blood Venipuncture / Unknown 10/18/2022 11:35 AM CDT 10/18/2022 11:52 AM CDT Christina Toribio MD LAB_1 [facility] [address] [place] [address] [phone] * (ABNORMAL) HCG, Quantitative, Serum (10/18/2022 11:35 AM CDT) Pathologist [facility] HCG, Quantitative 52,830(H) <=4 mIU/mL 10/18/2022 5:44 PM CDT [facility] Blood Venipuncture / Unknown 10/18/2022 11:35 AM CDT 10/18/2022 11:52 AM CDT Narrative [facility] - 10/18/2022 5:44 PM CDT Expected ranges Negative: <5 mIU/mL Indeterminate: 5-25 mIU/mL Positive: >25 mIU/mL Suggest repeat testing of indeterminate result in 72 hours. Christina Toribio MD LAB_1 Performing Organization Address City/[facility]/ZIP Co de Phone Number [facility] [address] * Basic Metabolic Panel (10/18/2022 11:35 AM CDT) Pathologist [facility] Sodium 138 136 - 145 mmol/L 10/18/2022 12:14 PM [facility] Potassium 4.1 3.5 - 5.1 mmol/L 10/18/2022 12:14 PM [facility] Chloride 105 98 - 109 mmol/L 10/18/2022 12:14 PM [facility] CO2 24 20 - 29 mmol/L 10/18/2022 12:14 PM [facility] Anion Gap 9 7 - 16 mmol/L 10/18/2022 12:14 PM [facility] Calcium 9.5 8.4 - 10.4 mg/dL 10/18/2022 12:14 PM [facility] BUN 7 7 - 26 mg/dL 10/18/2022 12:14 PM [facility] Creatinine 0.60 0.55 - 1.02 mg/dL 10/18/2022 12:14 PM [facility] Glucose 93 70 - 100 mg/dL 10/18/2022 12:14 PM [facility] Comment:The given reference range is for the fasting state. Non-fasting reference range for glucose is 70 - 180 mg/dL. Hours Fasting 0 10/18/2022 12:14 PM [facility] GFR, Estimated >60 >60 mL/min/1.7 3m2 10/18/2022 12:14 PM [facility] Blood Venipuncture / Unknown 10/18/2022 11:35 AM CDT 10/18/2022 11:52 AM CDT Christina Toribio MD LAB_1 [facility] [address] [place] [address], [facility] [phone] * (ABNORMAL) UA with Microscopic: Clean Catch (10/18/2022 11:32 AM CDT) Urine Color Straw 10/18/2022 12:37 PM [facility] Urine Clarity Clear Clear 10/18/2022 12:37 PM [facility] Specific [place], Urine <=1.005(A) 1.005 - 1.030 10/18/2022 12:37 PM [facility] PH Urine 6.0 5.0 - 8.0 10/18/2022 12:37 PM [facility] Protein, Urine Qual (mg/dL) Negative Neg/Trace 10/18/2022 12:37 PM [facility] Glucose Urine Qual (mg/dL) Negative Negative 10/18/2022 12:37 PM [facility] Ketones, Urine (mg/dL) Negative Negative 10/18/2022 12:37 PM [facility] Urobilinogen, Urine (EU/dL) 0.2 <2.0 10/18/2022 12:37 PM [facility] Bilirubin Urine Negative Negative 10/18/2022 12:37 PM [facility] Blood, Urine Negative Neg/Trace 10/18/2022 12:37 PM CDT [facility] Nitrite Urine Negative Negative 10/18/2022 12:37 PM CDT [facility] Leukocyte Est. Negative Negative 10/18/2022 12:37 PM CDT [facility] Red Blood Cells 0-3 0 - 3 /HPF 10/18/2022 12:37 PM CDT [facility] White Blood Cells 0-5 0 - 5 /HPF 10/18/2022 12:37 PM T [facility] Squamous Epithelial Cells Occasional None Seen, Occasional, Few /HPF 10/18/2022 12:37 PM T [facility] Urine Source Clean Catch 10/18/2022 12:37 PM T [facility] Urine URINE SPECIMEN COLLECTION, CLEAN CATCH / Unknown Non-blood Collection / Unknown 10/18/2022 11:32 AM CDT 10/18/2022 12:23 PM CDT Christina Toribio MD LAB_1 Performing Organization Address City/State/[facility] Co de Phone Number [facility] [address] [place] [address], [facility] [phone] documented in this encounter Visit Diagnoses Diagnosis [...] mL documented in this encounter Care Teams Customer Contact Sales Associate Relationship Specialty Start Date End Date Needs Pcp, [place] [address] PCP - General 09/19/21 documented as of this encounter
--- OUTSIDE RECORDS SUMMARY | 2023-04-24 06:15 | XMS_ITS ---
Author Name Unknown Organization [facility] Address [address] [place] [address] Care Team Providers Care Complaint Evaluation Supervisor Name Role Phone Unavailable Unavailable Unavailable Surgery Details Not on file Complications Check Surgery Details section. Procedure Estimated Blood Loss Check Surgery Details section. Procedure Findings Check Surgery Details section. Procedure Specimens Taken Check Surgery Details section.
--- OUTSIDE RECORDS SUMMARY | 2023-04-24 06:15 | XMS_ITS | Referral Summary ---
Author Name Unknown Organization [facility] Address [address] [place] [address] Care Team Providers Care Planimeter Operator Name Role Phone Elsewhere, Pcp Primary Care Provider Unavailabl e Source Comments Patient records contain information from all sites at [facility]. For routine questions regarding patient records, call [phone] during business hours, M-F 8:00 AM - 5:00 PM Central Time. Record requests for emergency care only can be directed to [phone] at any time.[facility] Allergies Active Allergy Reactions Criticality Noted [...] and Family Once a week 09/01/2018 Attends Spiritism Services Never 09/01 Active Member of Clubs [...] Paying Living Expenses Somewhat [address] 09/01/2018 [facility] - [...] of Treatment Not on file Care Teams Planimeter Operator Relationship Specialty Start Date End Date Elsewhere, Pcp PCP - General Family Medicine 05/22/18
--- OUTSIDE RECORDS SUMMARY | 2023-04-24 06:15 | XMS_ITS | Encounter Summary ---
Author Name Unknown Organization [facility] Address [address] [place] [address] Care Team Providers Care Rx Specialist Name Role Phone Elsewhere, Pcp Primary Care Provider Unavailabl e Reason for Referral * Outpatient (Routine) - Closed Specialty Diagnoses / Procedures Referred By Contact Referred To Contact Gastroenterology and Hepatology Diagnoses Nausea And Vomiting Morris Rodriguez M.D. [address] [place] [phone] [facility] Referral ID Status Reason Start Date Expiration Date Visits Re quested Visits Authorized [id number] Closed 05/21/2018 05/21/2019 1 1 Encounter Details Date Type Department Care Team (Late st Contact Info) Description 05/21/2018 [facility] [address] [place] [address] Morris Rodriguze M.D. [address] [address] Nausea And Vomiting (Primary Dx) [...] documented as of this encounter Care Teams Rx Specialist Relationship Specialty Start Date End Date Elsewhere, Pcp PCP - General Family Medicine 05/22/18 documented as of this encounter
== END 2023-04-23 10:01 | disposition home or self-care (01) ==
LOC: NFLDREF 04-24 06:12
PROVIDERS: PCP Family Medicine; Referring Provider Family Medicine; Visit Provider Obstetrics & Gynecology
DX: E03.9 Hypothyroidism, unspecified (principal); Z34.90 Encounter for supervision of normal pregnancy, unspecified, unspecified trimester; Z23 Encounter for immunization
CPT/HCPCS: 84443

== ENCOUNTER 2023-05-01 12:54 | Outpatient (CLI) | payer BC, SELFPAY ==
--- OUTSIDE RECORDS SUMMARY | 2023-05-01 12:59 | XMS_ITS | Clinical Summary ---
Author Name Unknown Organization [facility] Address [address] [place] [address] Care Team Providers Care Sales Consultant Insurance Name Role Phone Needs Pcp, Assignment Primary Care Provider [phone] Source Comments You are receiving this document as you are listed as the primary care provider,follow-up provider, or the patient has been referred to you for consultation.This is in compliance with the Medicare and[employer] E[employer] Incentive Program,which states Providers who transition their patient to another setting of careor provider of care or refers their patient to another provider of care shouldprovide summary care record for each transition of care or referral. [facility] All[facility] Active Allergy Reactions Criticality Noted Date [...] 1992 Hep C Screening (Preventive Services) 1992 HIV Screening (Preventive Services) 2008 Adult Preventive Visit 2010 HepB (1) 2011 COVID-19 Vaccine ( - 2022-2 4 season) 2022 Influenza (#1) 2022 04/21/2019, 04/15/2018, 03/28/2017 DTaP/Tdap/Td [...] age to complete this topic Care Teams Sales Consultant Insurance Relationship Specialty Start Date End Date Needs Pcp, [place] [address] PCP - General 09/19/21
--- OUTSIDE RECORDS SUMMARY | 2023-05-01 12:59 | XMS_ITS ---
Author Name Unknown Organization [facility] Address [address] [place] [address] Care Team Providers Care Cottrell Blower Name Role Phone Unavailable Unavailable Unavailable Surgery Details Not on file Complications Check Surgery Details section. Procedure Estimated Blood Loss Check Surgery Details section. Procedure Findings Check Surgery Details section. Procedure Specimens Taken Check Surgery Details section.
--- OUTSIDE RECORDS SUMMARY | 2023-05-01 12:59 | XMS_ITS | Referral Summary ---
Author Name Unknown Organization [facility] Address [address] [place] [address] Care Team Providers Care Retail Area Manager Name Role Phone Elsewhere, Pcp Primary Care Provider Unavailabl e Source Comments Patient records contain information from all sites at [facility]. For routine questions regarding patient records, call [phone] during business hours, M-F 8:00 AM - 5:00 PM Central Time. Record requests for emergency care only can be directed to [phone] at any time.[facility] Allergies Active Allergy Reactions Criticality Noted Date [...] and Family Once a week 09/01/2018 Attends Holiness Services Never 09/01 Active Member of Clubs [...] of Treatment Not on file Care Teams Retail Area Manager Relationship Specialty Start Date End Date Elsewhere, Pcp PCP - General Family Medicine 05/22/18
--- OUTSIDE RECORDS SUMMARY | 2023-05-01 12:59 | XMS_ITS | Clinical Summary ---
Author Name Unknown Organization [facility] Address [address] [place] [address] Care Team Providers Care Credit Assistant Name Role Phone Elsewhere, Pcp Primary Care Provider Unavailabl e Source Comments Patient records contain information from all sites at [facility]. For routine questions regarding patient records, call [phone] during business hours, M-F 8:00 AM - 5:00 PM Central Time. Record requests for emergency care only can be directed to [phone] at any time.[facility] Allergies Active Allergy Reactions Criticality Noted [...] and Family Once a week 09/01/2018 Attends [employer] Services Never 09/01 Active Member of Clubs [...] Paying Living Expenses Somewhat [address] 09/01/2018 [facility] - Occupational Stress [...] age to complete this topic Care Teams Credit Assistant Relationship Specialty Start Date End Date Elsewhere, Pcp PCP - General Family Medicine 05/22/18
--- OUTSIDE RECORDS SUMMARY | 2023-05-01 12:59 | XMS_ITS | Encounter Summary ---
Author Name Unknown Organization [facility] Address [address] [place] [address] Care Team Providers Care Unit Tender Name Role Phone Elsewhere, Pcp Primary Care Provider Unavailabl e Reason for Referral * Outpatient (Routine) - Closed Specialty Diagnoses / Procedures Referred By Contact Referred To Contact Gastroenterology and Hepatology Diagnoses Nausea And Vomiting Morris Rodriguez M.D. [address] [place] [phone] [facility] Referral ID Status Reason Start Date Expiration Date Visits Re quested Visits Authorized [id number] Closed 05/21/2018 05/21/2019 1 1 Encounter Details Date Type Department Care Team (Late st Contact Info) Description 05/21/[address] [facility] [address] [place] [address] Morris Rodriguez M.D. [address] [address] Nausea And Vomiting (Primary Dx) [...] documented as of this encounter Care Teams Unit Tender Relationship Specialty Start Date End Date Elsewhere, Pcp PCP - General Family Medicine 05/22/18 documented as of this encounter
--- OUTSIDE RECORDS SUMMARY | 2023-05-01 12:59 | XMS_ITS | Clinical Summary ---
Author Name Unknown Organization [facility] Address [place], [place] [address] Care Team Providers Care Reconciliation Accountant Name Role Phone Pcp, No Primary Care Provider Unavailabl e Allergies Active Allergy Reactions Criticality Noted Date Comments Morphine Hives 12/28/2016 Pineapple Anaphylaxis High 12/28/2016 Metoclopramide Hcl Anxiety 12/28/2016 Sulfa (Sulfonamide Antibiotics) Vomiting 12/28/2016 Other reaction(s): GI intolerance Medications Medication Sig Dispensed Refills Start Date End Date Status 50-[id number]-[id number] 6-dha 30 mg iron-1mg -200 mg cap [...] days. 20 Capsule 0 04/20/2023 4 Active Problems Problem Noted Date Diagnosed Date Diarrhea 04/28/2018 Overview: Colonoscopy 04/2018 normal, repeat at age 52 Generalized abdominal pain 04/28/2018 Nausea and vomiting 04/28/2018 Overview: EGD 04/2017 normal, recommend gastric emptying study if symptoms persist Estimated Date of Delivery Comme nts Yes 06/08/2023 Encounters Date Type Department Care Team Description 04/20/2023 10:50 AM REGULATORY PROCESS MANAGER Office Visit [facility] [address] [place] [address] Marcus Velazquez PA Sinus Problem (Watery eyes, [...] Comments Blood Pressure 126/72 04/20/2023 10:52 AM REGULATORY PROCESS MANAGER Pulse 98 04/20/2023 10:52 AM REGULATORY PROCESS MANAGER Temperature 35.9 ??C (96.7 ??F) 04/20/2023 1 0:52 AM REGULATORY PROCESS MANAGER Respiratory Rate 16 04/20/2023 10:5 2 AM REGULATORY PROCESS MANAGER Oxygen Saturation 98% 04/20/2023 10: 52 AM REGULATORY PROCESS MANAGER Inhaled Oxygen Concentration - - Weight 92.9 kg (204 lb 11.2 oz) 024 10:52 AM REGULATORY PROCESS MANAGER Height 170.2 cm (5' 7) 11/07/2022 6:39 [...] age to complete this topic Care Teams Reconciliation Accountant Relationship Specialty Start Date End Date Pcp, No . PCP - General 11/17/21
--- OUTSIDE RECORDS SUMMARY | 2023-05-01 12:59 | XMS_ITS | Encounter Summary ---
Author Name Unknown Organization [facility] Address [address], [place] [address] Care Team Providers Care Day Habilitation Supervisor Name Role Phone Needs Pcp, Assignment Primary Care Provider [phone] Reason for Visit * Reason Comments Vomiting Pt is 7 weeks pregna nt, she has been having nausea and vomiting for the two days. She is taking B6 and Unisom however it is not relieving her symptoms Encounter Details Date Type Department Care Team (Late st Contact Info) Description 10/18/2022 10:40 AM CDT Office Visit [facility] [address] [place] [address] Christina Toribio MD [address] [place] [address] Excessive vomiting in Social History [...] 12:00 AM CDT NAME: GHADA RODGERS CSN: [id number] CLINIC NOTE DATE OF SERVICE: 10/18/2022 : [...] She had some drops that she got [id number] that are supposed to help with nauseousness, but have not been helping. She denies any abdominal pain, denies any urinary symptoms. Denies any back pain. Denies a headache. Does not feel lightheaded or dizzy. Patient denies any vaginal discharge or vaginal bleeding. PAST MEDICAL HISTORY: Reviewed through [employer]. PAST SURGICAL HISTORY: Reviewed through [employer]. MEDICATIONS: Reviewed through [employer]. ALLERGIES: REVIEWED THROUGH [employer]. OBJECTIVE: VITAL SIGNS: Blood pressure 109/51, temperature [...] B6 on a scheduled dose, what the bed operator had outlined for her to do it 4 times a day. She will follow up if symptoms are not significantly improving. Certainly, if she has any vaginal bleeding, abdominal pain, she should follow up and she is in agreement with the plan and all of her questions were answered. MD LEANNE CHRISTINE/DEVIKAS /[phone] documented in this encounter Nursing Notes * Melany Doe, CABLE FORMER - 10/18/2022 10:40 AM CDT Ghada Rodgers [...] Positive(A ) Negative 10/18/2022 12:37 PM CDT [facility] Urine Non-blood Collection / Unknown 10/18/2022 12:14 PM CDT 10/18/2022 12:31 PM CDT Christina Toribio MD LAB_1 [facility] [address] [place] [address], [facility] [phone] * (ABNORMAL) Complete Blood Count-W/Diff (10/18/2022 11:35 AM CDT) Pathologist [facility] WBC 8.7 3.5 - 10.5 x10(9)/L 10/18/2022 11:56 AM [facility] RBC 5.30(H) 3.90 - 5.03 x10(12)/L 10/18/2022 11:56 AM [facility] Hemoglobin 14.7 12.0 - 15.5 g/dL 10/18/2022 11:56 AM [facility] HCT 44.9(H) 34.9 - 44.5 % 10/18/2022 11:56 AM [facility] MCV 84.7 80.0 - 100.0 fL 10/18/2022 11:56 AM [facility] MCH 27.7 27.6 - 33.3 pg 10/18/2022 11:56 AM [facility] MCHC 32.7 31.5 - 35.2 g/dL 10/18/2022 11:56 AM [facility] RDW 13.7 11.9 - 15.5 % 10/18/2022 11:56 AM [facility] Platelets 342 150 - 450 x10(9)/L 10/18/2022 11:56 AM [facility] Automated NRBC 0 <=0 /100 WBC 10/18/2022 11:56 AM [facility] Neutrophil Absolute 6.5 1.7 - 7.0 10(9)/L 10/18/2022 11:56 AM [facility] Lymphocyte Absolute 1.5 1.0 - 4.8 10(9)/L 10/18/2022 11:56 AM [facility] Monocyte Absolute 0.6 0.2 - 0.9 10(9)/L 10/18/2022 11:56 AM [facility] Eosinophil Absolute 0.1 0.0 - 0.5 10(9)/L 10/18/2022 11:56 AM [facility] Basophil Absolute 0.0 0.0 - 0.3 10(9)/L 10/18/2022 11:56 AM [facility] Immature Granulocyte % 0.5 0.0 - 0.5 % 10/18/2022 11:56 AM [facility] Blood Venipuncture / Unknown 10/18/2022 11:35 AM CDT 10/18/2022 11:52 AM CDT Christina Toribio MD [facility] [address] [place] [address] [phone] * (ABNORMAL) HCG, Quantitative, Serum (10/18/2022 11:35 AM CDT) Pathologist [facility] HCG, Quantitative 52,830(H) <=4 mIU/mL 10/18/2022 5:44 PM CDT [facility] Blood Venipuncture / Unknown 10/18/2022 11:35 AM CDT 10/18/2022 11:52 AM CDT Narrative [facility] - 10/18/2022 5:44 PM CDT Expected ranges Negative: <5 mIU/mL Indeterminate: 5-25 mIU/mL Positive: >25 mIU/mL Suggest repeat testing of indeterminate result in 72 hours. Christina Toribio MD LAB_1 Performing Organization Address City/[facility]/ZIP Co de Phone Number [facility] [address] * Basic Metabolic Panel (10/18/2022 11:35 AM CDT) Pathologist [facility] Sodium 138 136 - 145 mmol/L 10/18/2022 12:14 PM [facility] Potassium 4.1 3.5 - 5.1 mmol/L 10/18/2022 12:14 PM [facility] Chloride 105 98 - 109 mmol/L 10/18/2022 12:14 PM [facility] CO2 24 20 - 29 mmol/L 10/18/2022 12:14 PM [facility] Anion Gap 9 7 - 16 mmol/L 10/18/2022 12:14 PM [facility] Calcium 9.5 8.4 - 10.4 mg/dL 10/18/2022 12:14 PM [facility] BUN 7 7 - 26 mg/dL 10/18/2022 12:14 PM [facility] Creatinine 0.60 0.55 - 1.02 mg/dL 10/18/2022 12:14 PM [facility] Glucose 93 70 - 100 mg/dL 10/18/2022 12:14 PM [facility] Comment:The given reference range is for the fasting state. Non-fasting reference range for glucose is 70 - 180 mg/dL. Hours Fasting 0 10/18/2022 12:14 PM [facility] GFR, Estimated >60 >60 mL/min/1.7 3m2 10/18/2022 12:14 PM [facility] Blood Venipuncture / Unknown 10/18/2022 11:35 AM CDT 10/18/2022 11:52 AM CDT Christina Toribio MD [facility] [address] [place] [address], [facility] [phone] * (ABNORMAL) UA with Microscopic: Clean Catch (10/18/2022 11:32 AM CDT) Urine Color Straw 10/18/2022 12:37 PM [facility] Urine Clarity Clear Clear 10/18/2022 12:37 PM [facility] Specific Clarissa, Urine <=1.005(A) 1.005 - 1.030 10/18/2022 12:37 PM [facility] PH Urine 6.0 5.0 - 8.0 10/18/2022 12:37 PM [facility] Protein, Urine Qual (mg/dL) Negative Neg/Trace 10/18/2022 12:37 PM [facility] Glucose Urine Qual (mg/dL) Negative Negative 10/18/2022 12:37 PM [facility] Ketones, Urine (mg/dL) Negative Negative 10/18/2022 12:37 PM [facility] Urobilinogen, Urine (EU/dL) 0.2 <2.0 10/18/2022 12:37 PM [facility] Bilirubin Urine Negative Negative 10/18/2022 12:37 PM [facility] Blood, Urine Negative Neg/Trace 10/18/2022 12:37 PM CDT [facility] Nitrite Urine Negative Negative 10/18/2022 12:37 PM CDT [facility] Leukocyte Est. Negative Negative 10/18/2022 12:37 PM CDT [facility] Red Blood Cells 0-3 0 - 3 /HPF 10/18/2022 12:37 PM CDT [facility] White Blood Cells 0-5 0 - 5 /HPF 10/18/2022 12:37 PM T [facility] Squamous Epithelial Cells Occasional None Seen, Occasional, Few /HPF 10/18/2022 12:37 PM T [facility] Urine Source Clean Catch 10/18/2022 12:37 PM T [facility] Urine URINE SPECIMEN COLLECTION, CLEAN CATCH / Unknown Non-blood Collection / Unknown 10/18/2022 11:32 AM CDT 10/18/2022 12:23 PM CDT Christina Toribio MD LAB_1 Performing Organization Address City/State/[facility] Co de Phone Number [facility] [address] [place] [address], [facility] [phone] documented in this encounter Visit Diagnoses Diagnosis [...] mL documented in this encounter Care Teams Day Habilitation Supervisor Relationship Specialty Start Date End Date Needs Pcp, [place] [address] PCP - General 09/19/21 documented as of this encounter
== END 2023-05-01 12:55 | disposition home or self-care (01) ==
PROVIDERS: PCP Family Medicine; Visit Provider Obstetrics & Gynecology
DX: L29.8 Other pruritus (principal)
CPT/HCPCS: 82239; 84450; 84460

== ENCOUNTER 2023-05-08 13:14 | Outpatient (CLI) | payer BC, SELFPAY ==
[2023-05-08 13:34] VITALS: BP 131/72; PULSE 87; RESP 16; TEMP 36.6
[2023-05-08 13:35] VITALS: PULSE 101; O2SAT 98
[2023-05-08 13:40] VITALS: PULSE 102; O2SAT 98
[2023-05-08 13:45] VITALS: PULSE 97; O2SAT 99
--- NOTE | 2023-05-08 14:45 | PC.OBNST ---
NST Note NST Note Start: 05/08/23 13:26 Freq: ONCE Status: Active Protocol: Document 05/08/23 14:43 CRYSTAL (Rec: 05/08/23 14:45 CRYSTAL [id number]) NST Note 3 Para (# of births) 0 EDC 06/08/23 Gestational Age In Weeks & Days 35 Weeks & 4 Days High Risk Factors Diabetes - Gestational Diet Controlled Patient Presented with Complaint(s) of Other Other Complaints Blood on toilet paper and in the toilet. Reactive Yes Appropriate for Gestational Age Yes RN Elena Price RN Date 05/08/23 Reactive Yes Appropriate for Gestational Age Yes APOLINAR Canales RNC Date 05/08/23 OB NST charge Yes Complete NST Note via Write Note Yes The provider's electronic signature indicates the NST is reactive/appropriate for gestational age. *Note to provider: If an addendum is required, open the patient's chart and click on the note under the Nurse/Allied Health tab.
[2023-05-08 14:52] LABS: Clue Cells No Clue Cells Seen (None Seen); Trichomonas No Trichomonas Seen (None Seen); Yeast No Yeast Seen (None Seen)
--- NOTE | 2023-05-08 18:04 | PM.OBLDTN ---
OB - Triage/Final Diagnosis Visit Information Date Seen: 05/08/23 Narrative: The patient is a 33 year old 1 para 0 at 35 weeks gestation by LMP, who presents with rectal versus vaginal bleeding. course is complicated by GDM A1, low-lying placenta (16mm), asthma, obesity, anxiety and depression, prolonged nausea/vomiting in , GERD, history of a prior bowel obstruction require exploratory laparotomy. Paula presented to triage after calling clinic with rectal versus vaginal bleeding. She notes a history of hemorrhoids and constipation, status post hemorrhoidectomy prior to conception. She does not have any known hemorrhoids at this time. She had a regular bowel movement around noon today, with note of blood in toilet water and with wiping. She notes this has subsequently resolved, where she has voided twice since that time with no ongoing bleeding. She denies any abdominal pain/contractions, leaking of fluids or decreased movement. She is otherwise in her normal state of health. She did recently have a yeast infection in mid March, where symptoms resolved with Monistat. She denies any ongoing abnormal discharge, vulvovaginal burning or pruritus. Evaluation Laboratory results: Laboratory Tests 05/08/23 Range/Units 14:27 Vaginal Trichomonas No Trichomonas Seen (None Seen) Vaginal Yeast No Yeast Seen (None Seen) Vaginal Clue Cells No Clue Cells Seen (None Seen) Vital signs: Vital Signs - 24 hr 05/08/23 13:34 05/08/23 13:34 05/08/23 13:35 Temperature 97.8 F Pulse Rate 87 Respiratory Rate 16 Blood Pressure 131/72 Pulse Oximetry 98 05/08/23 13:40 05/08/23 13:45 Temperature Pulse Rate Respiratory Rate Blood Pressure Pulse Oximetry 98 99 Comments: General: Alert and oriented, no acute distress Psych: Appropriate mood and affect Abdomen: Gravid, nontender Pelvic: External genitalia within normal limits, perineum is dry. Speculum inserted, where thickened white vaginal discharge is noted. There is absolutely no blood in the vaginal vault. Cervix visualized and appears unremarkable, no bleeding appreciated. Visual rectal exam completed, where there are tiny skin tags and a small prolapsing internal hemorrhoid. There is a tiny focus of blood noted on this tissue. NST: Reactive NST. Baseline 135bpm, moderate variability, accelerations present, no decelerations [place]: No contractions noted. Final Diagnosis (1) Hemorrhoids during in third trimester: Status: Acute Problem details: Ms. Dubon is a 33yo at 35w4d GA seen for rectal vs vaginal bleeding concurrent with a bowel movement. Physical exam is negative for any evidence of vaginal bleeding, reactive NST with no contractions noted by patient nor on toco. Exam is notable for tiny hemorrhoidal skin tags and a prolapsing internal hemorrhoid with concurrent tiny focus of blood. We reviewed that her clinical picture is most consistent with rectal bleeding from hemorrhoids. Discussed symptomatic management with sitz bath and witch lenin pads. Discussed use of witch lenin per rectum and/or pad to try to differentiate rectal bleeding. Strict return precautions were reinforced for any regular/painful contractions, vaginal bleeding, leaking of fluids, decreased movement or other obstetrics concerns. All questions answered.
== END 2023-05-08 13:37 | disposition home or self-care (01) ==
LOC: OB OUT 13:14 → OB 13:15
PROVIDERS: PCP Family Medicine; Visit Provider Obstetrics & Gynecology
DX: O24.419 Gestational diabetes mellitus in pregnancy, unspecified control (principal); O22.43 Hemorrhoids in pregnancy, third trimester; Z3A.35 35 weeks gestation of pregnancy
CPT/HCPCS: 59025; 87210; G0463

== ENCOUNTER 2023-05-16 14:00 | Outpatient (CLI) | payer BC, SELFPAY ==
--- NOTE | 2023-05-16 14:00 | US_ITS ---
Patient: GHADA RODGERS Facility:?[facility] Patient ID:?[id number] Site Patient ID:?[id number]. Site :?[id number] Study:?US-OB Pelvis placenta location-05/16/2023 3:01:02 PM Ordering Physician:KACIE Final Report: INDICATION: Low-lying placenta COMPARISON: 04/05/2023 TECHNIQUE: Real time harris scale imaging of the fetus was performed with transabdominal and transvaginal technique. FINDINGS: Sonographic imaging demonstrates a single living intrauterine gestation. Fetus demonstrates a regular cardiac rate of 159 beats per minute. Fetus has a vertex position. The placenta lies right posterior without evidence of placenta previa. Placental edge is 2.2 cm from the internal cervical os. Amniotic fluid volume appears normal and there is a single deepest vertical pocket: 9.0 cm. CALEB 20.5 cm. Cervix is closed. IMPRESSION: Right posterior placenta. Placental edge lies 2.2 cm from the internal cervical os. Dictated by Javid Krishnamurthy MD @ 05/17/2023 9:52:22 AM Signed by:?Javid Krishnamurthy MD @05/17/2023 9:52:22 AM (Electronic Signature)
== END 2023-05-16 14:01 | disposition home or self-care (01) ==
LOC: US 14:00
PROVIDERS: PCP Family Medicine; Visit Provider Obstetrics & Gynecology
DX: O44.43 Low lying placenta NOS or without hemorrhage, third trimester (principal)
CPT/HCPCS: 76816; 87081; 87653

== ENCOUNTER 2023-06-02 00:34 | Outpatient (CLI) | payer BC, SELFPAY ==
[2023-06-02 01:11] LABS: Appearance Urine Clear (Clear); Bilirubin Urine Negative (Negative); Blood Urine Negative (Negative); Color Urine Yellow (Yellow); Glucose Urine Negative (Negative); Ketones Urine Negative (Negative); Leukocyte Esterase Urine Negative (Negative); Nitrite Urine Negative (Negative); Protein Urine Negative (Negative); Urobilinogen Urine 0.2 (0.2-1.0)
[2023-06-02 01:17] VITALS: BP 131/82; PULSE 82; PULSE 87; TEMP 36.9; O2SAT 97
[2023-06-02 01:22] VITALS: PULSE 87; O2SAT 99
[2023-06-02] MEDS: hydrOXYzine pamoate 25 MG CAPSULE 100 MG PO (01:23)
[2023-06-02] MEDS: MORPHINE 10 MG/ML inj IM (01:23)
[2023-06-02 01:27] VITALS: PULSE 104; O2SAT 98
[2023-06-02 01:31] LABS: Bacteria Urine Few; RBC Urine 0-2 (0-2); Squamous Epithelial Cell Urine Moderate (None-Few)
[2023-06-02 01:32] VITALS: PULSE 103; O2SAT 97
[2023-06-02 01:37] VITALS: PULSE 99; O2SAT 98
[2023-06-02 02:04] LABS: Bacterial Vaginosis* Negative (Negative); Candida glab/krus NOT DETECTED (No Detected); Candida species NOT DETECTED (No Detected); Trichomonas vaginalis NOT DETECTED (No Detected)
[2023-06-02 02:26] LABS: Basophils Percent Auto 0.2 % (0.0-3.0); Eosinophils Percent Auto 0.6 % (0.0-7.0); Hemoglobin* 12.7 gm/dL (12.0-16.0); Lymphocytes Percent Auto 17.9 % (20-44); Mean Corpuscular HGB Conc 33 gm/dL (32-36); Mean Corpuscular Hemoglobin 28 pg (26-34); Mean Corpuscular Volume 85 fL (80-100); Neutrophils Percent Auto 73.1 % (42.0-72.0); Platelet Count* 301 K/uL (140-440); RDW Coefficient of Variation % 14.2 % (11.5-15.5); Red Blood Count 4.57 m/uL (4.00-5.20); White Blood Count* 9.77 K/uL (4.50-11.00)
[2023-06-02 02:27] LABS: Basophils Absolute Auto 0.02 K/uL (0.00-0.30); Eosinophils Absolute Auto 0.06 K/uL (0.00-0.50); Immature Granulocytes Abs Auto 0.02 K/uL (0.00-0.30); Immature Granulocytes Pct Auto 0.2 %
[2023-06-02 02:29] LABS: Slide Review Reflex No
--- NOTE | 2023-06-02 03:04 | PC.OBNST ---
NST Note NST Note Start: 06/02/23 00:37 Freq: ONCE Status: Active Protocol: Document 06/02/23 03:03 MICHAEL (Rec: 06/02/23 03:04 MICHAEL [id number]) NST Note 1 Para (# of births) 0 EDC 06/06/23 Gestational Age In Weeks & Days 39 Weeks & 3 Days High Risk Factors Diabetes - Gestational Diet Controlled Patient Presented with Complaint(s) of Contractions/cramping Reactive Yes Appropriate for Gestational Age Yes RN Cristina Mai RN Date 06/02/23 Reactive Yes Appropriate for Gestational Age Yes APOLINAR Mora RN Date 06/02/23 OB NST charge Yes Complete NST Note via Write Note Yes The provider's electronic signature indicates the NST is reactive/appropriate for gestational age. *Note to provider: If an addendum is required, open the patient's chart and click on the note under the Nurse/Allied Health tab.
== END 2023-06-02 02:59 | disposition home or self-care (01) ==
LOC: OB OUT 00:34 → OB 00:34
PROVIDERS: PCP Family Medicine; Visit Provider Obstetrics & Gynecology
DX: O47.1 False labor at or after 37 completed weeks of gestation (principal); Z3A.39 39 weeks gestation of pregnancy
CPT/HCPCS: 36415; 59025; 81001; 81513; 85025; 87086; 87481; 87661; G0463; A9270; J2270

== ENCOUNTER 2023-06-05 05:02 | Inpatient (IN) | payer BC, SELFPAY ==
[2023-06-05] VITALS (35 sets, daily range): BP systolic 110–145; BP diastolic 55–83; PULSE 69–110; RESP 16; TEMP 36.5–37.6; O2SAT 94–98; BMI 33.0
--- NOTE | 2023-06-05 07:00 | W.PM.H&PU ---
History & Physical Update History & Physical Update H&P Reviewed and patient assessed: No changes noted H&P Updates: Physical exam: General: No acute distress Psych: Alert and oriented x3, full affect Heart: Regular rate and rhythm, no murmur rub or gallop Lungs: Clear to auscultation bilaterally Abdomen: Gravid. Otherwise soft and nontender. heart rate: Reactive NST. Baseline of 130 beats per minute, moderate variability, accelerations present, decelerations absent. Assessment/Plan: - Proceed to OR for primary delivery, plan to utilize her prior midline laparotomy incision with scar revision - Perioperative ancef - BT A negative, T/S pending this morning - GBS negative
[2023-06-05 07:06] LABS: Basophils Absolute Auto 0.03 K/uL (0.00-0.30); Basophils Percent Auto 0.3 % (0.0-3.0); Eosinophils Absolute Auto 0.03 K/uL (0.00-0.50); Eosinophils Percent Auto 0.3 % (0.0-7.0); Hematocrit 38.8 % (33.0-51.0); Hemoglobin* 12.7 gm/dL (12.0-16.0); Immature Granulocytes Abs Auto 0.02 K/uL (0.00-0.30); Immature Granulocytes Pct Auto 0.2 %; Lymphocytes Percent Auto 18.8 % (20-44); Mean Corpuscular HGB Conc 33 gm/dL (32-36); Mean Corpuscular Hemoglobin 28 pg (26-34); Mean Corpuscular Volume 85 fL (80-100); Monocytes Percent Auto 7.4 % (0.0-11.0); Platelet Count* 274 K/uL (140-440); RDW Coefficient of Variation % 14.3 % (11.5-15.5); Red Blood Count 4.55 m/uL (4.00-5.20); White Blood Count* 9.45 K/uL (4.50-11.00)
[2023-06-05 07:07] LABS: Slide Review Reflex No
[2023-06-05] MEDS: CEFAZOLIN 2 GM INJ IVP (07:35)
[2023-06-05] MEDS: LACTATED RINGERS 1000 ML 1,000 ML 125 ML IV ×2 (07:43→11:00)
--- NOTE | 2023-06-05 08:26 | W.ANESCHARGE ---
Anesthesia Charges Start Date/Time Anesthesia Start Date: 06/05/23 Anesthesia Start Time: 07:23 Stop Date/Time Anesthesia Stop Date: 06/05/23 Anesthesia Stop Time: 09:10
--- NOTE | 2023-06-05 08:27 | W.PM.NB ---
Nerve Block Nerve Block Date Seen: 06/05/23 Type of block requested by surgeon for post-operative analgesia: TAP Side: bilateral Time out performed: Yes Verification of patient name: Yes Verification of date of : Yes Site marking: site marked Name of person performing procedure: Dilip Continuous monitoring Was continuous monitoring of O2 sat, B/P, hairmasters manager, recorded every 15 minutes?: Yes Procedure Checklist: sterile prep, needles and gloves Ultrasound guided. Images saved: Yes Medications given in 5ml increments after negative aspiration: Marcaine %: 0.25 mL: 30 Needle gauge: 20 and Exparel mL: 10 Patient tolerated procedure well: Yes Additional comments: Needle noted between internal oblique and transversus abdominus. Local spread visualized Block Charges Block Charge (with Pro Fee): TAP Bilateral Use of Ultrasound Machine for Block: Yes- US Guidance/pain block
[2023-06-05] MEDS: miSOPROStoL 800 MCG/4 TABLET PR (08:52)
--- NOTE | 2023-06-05 08:54 | PM.OBPRCCS ---
Procedure Date of procedure: 06/05/23 Pre-op diagnosis: 39 Weeks Gestation Post-op diagnosis: same Procedure Done: Global Will [facility] bill your pro fee for this procedure?: Yes Blood Loss Measurement Type: QBL (342) Bakri Used: No IV fluids (mL): 1,700 Urine Output (mL): 200 Surgeon: Aries Spence MD Lap Winding Machine Operator: Caitlyn Zacarias MD Anesthesia Type: Spinal Findings: Thick meconium-stained fluid Unremarkable uterus, bilateral fallopian tubes and ovaries Procedure Name: Primary delivery, scar revision Procedure Description: Patient was taken to the operating room with IV running. She received cefazolin in preoperative prophylaxis. Spinal anesthesia was administered. Benavides catheter was inserted. She was prepped and draped in the usual sterile fashion. Anesthesia was tested and found to be adequate. Her prior midline laparotomy and associated keloid was marked. Incision was made with a scalpel on her prior incision, carried through to the underlying layer of fascia with the scalpel. The subcutaneous fat was dissected off the underlying fascia with Bovie and blunt dissection. The fascia was nicked in the midline with Bovie, and this incision was extended superiorly and inferiorly with elevation of the fascia and cautery. We were noted to be in the midline between rectus muscles. Peritoneum was identified, elevated and entered with Metzenbaum scissors. Bovie was used to widen this opening, making sure to be free of the bladder inferiorly. Francisco Javier O retractor was inserted and tightened down, providing excellent visualization of the lower uterine segment. The bladder reflection was found to be advanced along the lower uterine segment. A bladder flap was created with a combination of sharp and blunt dissection. vertex was noted to be unengaged. Low-transverse uterine incision was made with a scalpel. Incision was widened bluntly. The 's head was grasped through the hysterotomy and elevated to the hysterotomy. The vertex did not freely deliver with fundal pressure, where I paused to stretch hysterotomy incision then regrasped the vertex and elevated it again to level of hysterotomy. vertex was delivered with fundal pressure, the remainder of the body delivered without incident. No nuchal cord was noted. Fetus was noted to be stunned, with reduced tone and respiratory effort. As such the cord was immediately clamped, cut and infant was handed off to attending nurses. The placenta was delivered with gentle traction on the cord. Cord blood obtained and sent for infant ABO. The uterus was exteriorized, and cleaned of all clots and debris with the dry lap pad. The hysterotomy was reapproximated with 0 Vicryl in a running, locked fashion. Second layer of the same suture was used in imbricating fashion to obtain hemostasis. Poor uterine tone was noted without associated hemorrhage, where prophylactic pitocin 40U infusion and methergine IM were administered. Small volume oozing was noted at the left hysterotomy corner, where two additional figure of eight sutures were applied with 0 vicryl. Excellent hemostasis was noted. The adnexa were examined and noted to be normal in appearance. The cul-de-sac and gutters were cleansed with dampened laparotomy sponge, removing any further clots and debris. Meconium stained fluid was noted, where copious irrigation was performed with warm normal saline. The uterus was reintroduced and the hysterotomy was examined and noted to be hemostatic. Bladder flap was elevated and hemostasis was achieved with electrocautery. Francisco Javier O retractor was removed. The hysterotomy was reexamined and found to be hemostatic. The rectus muscles were examined and found to be hemostatic. The fascia was reapproximated with looped 0 PDS in a running fashion. Subcutaneous fat was irrigated and Bovie used on oozing vessels. The subcutaneous fat was reapproximated with 2-0 vicryl in suture in a continuous fashion to close deep tissue. An additional 2-0 vicryl was utilized for subdermal horizontal mattress closure to reduce tension on the skin closure. The skin was closed with a subcuticular stitch of 3-0 monocryl. Surgical glue was applied above this. Rectal cytotec was administered at the end of case for additional support of uterine tone. Patient tolerated procedure well was taken to recovery area in stable condition. Surgical debrief was completed. details: - Liveborn male fetus - weight: 9lbs 0oz - APGARs were 3 and 9 at 1 and 5 minutes respectively Complications: None Pathology: specimen obtained, sent to pathology Surgery Debrief Performed: Yes Condition: stable Disposition: floor
--- NOTE | 2023-06-05 09:04 | W.PM.NB ---
Nerve Block Nerve Block Time Seen by Provider: 08:55 Date Seen: 06/05/23 Type of block requested by surgeon for post-operative analgesia: TAP Side: bilateral Time out performed: Yes Verification of patient name: Yes Verification of date of : Yes Name of person performing procedure: Sunil Assistants, if any: Darrion Continuous monitoring Was continuous monitoring of O2 sat, B/P, tool honing machine set up operator, recorded every 15 minutes?: Yes Procedure Checklist: sterile prep, needles and gloves Ultrasound guided. Images saved: Yes Medications given in 5ml increments after negative aspiration: Marcaine %: 0.25 mL: 30 Needle gauge: 21 and Exparel mL: 10 Needle gauge: 21 Patient tolerated procedure well: Yes Block Charges Block Charge (with Pro Fee): TAP Bilateral Use of Ultrasound Machine for Block: Yes- US Guidance/pain block
--- NOTE | 2023-06-05 09:10 | W.ANESCHARGE ---
Anesthesia Charges Start Date/Time Anesthesia Start Date: 06/05/23 Anesthesia Start Time: 07:23 Stop Date/Time Anesthesia Stop Date: 06/05/23 Anesthesia Stop Time: 09:10
[2023-06-05] MEDS: MEPERIDINE 25 MG/ML INJ 12.5 MG IVP (09:29)
[2023-06-05] MEDS: KETOROLAC 30 MG/ML inj IVP ×2 (14:12→20:26)
[2023-06-05] MEDS: BUSPIRONE 10 MG TABLET 7.5 MG PO (20:53)
[2023-06-05] MEDS: ACETAMINOPHEN 500 MG TABLET 1000 MG PO (23:48)
[2023-06-06] VITALS (12 sets, daily range): BP systolic 113–124; BP diastolic 73–79; PULSE 65–68; RESP 16; TEMP 36.6–36.9; O2SAT 96–98
[2023-06-06] MEDS: KETOROLAC 30 MG/ML inj IVP ×3 (02:29→15:48)
[2023-06-06] MEDS: ACETAMINOPHEN 500 MG TABLET 1000 MG PO ×3 (05:41→19:54)
[2023-06-06] MEDS: LEVOTHYROXINE 50 MCG TABLET PO (05:42)
[2023-06-06 06:14] LABS: Hemoglobin* 11.7 gm/dL (12.0-16.0)
--- NOTE | 2023-06-06 08:31 | P.OBPN_ITS ---
OB - PN:Subj Subjective Date Seen: 06/06/23 Patient comments OB post-: no complaints, pain well controlled, tolerating diet and flatus present [place] status: and doing well [place] feeding status: exclusively Narrative: Paula is a 33 y.o. who was admitted to [facility] for a primary C/S with scar revision.? She had an uncomplicated primary .? ? The patient feels well.? The pain is well controlled with current medications.? She is having some shoulder strap pain post-op which she is using ice and warm packs for. She has no new complaints.? She is breast feeding and reports things are going well.? the patient has done well.? Vitals have been stable.? She has remained afebrile.? Has a good appetite, is tolerating a general diet.? She is voiding without difficulty.? She is passing gas and has not had a bowel movement.? She is ambulating and denies any dizziness.? Has Small amount of rubra lochia.? OB - PN: Obj Exam Physical Exam: Vital signs: Temp Pulse Resp BP Pulse Ox O2 Del Method 97.9 F 68 16 113/75 97 Room Air 06/06/23 03:20 06/06/23 03:20 06/06/23 07:00 06/06/23 03:20 06/06/23 03:20 06/06/23 03:20 Narrative: GENERAL APPEARANCE:? normal affect, alert, no distress MOOD:? appropriate CHEST:? clear to auscultation HEART:? regular rate and rhythm ABDOMEN:? soft, non-tender the uterine fundus is firm At Umbilicus, Midline and is appropriate for the stage of recovery. EXTREMITIES:? normal and trace edema Incision: vertical incision intact dressing in place. Urinary Catheter Management: Urethral: Cath placed during this visit: yes, but has since been removed by the nurse Reason for continuing: decision to DC catheter Insertion date: 06/05/23 Insertion time: 07:38 Removal date: 06/05/23 Removal time: 17:05 OB - PN: Obj Data Labs Labs: Laboratory Results - last 24 hr 06/05/23 06/06/23 05:30 05:47 Hgb 11.7 L Antibody Identification Anti-D Screen Negative OB - PN: A/P Delivery Assessment and Plan (1) care and examination immediately after delivery: Status: Acute (2) Lactating mother: Status: Acute Plan day: 1 Plan: routine care Comments: Assessment/Plan?G 3 P 1 status post uncomplicated primary .? ?? 1.? Continue route PP cares? 2.? .? May see if desired? 3.? Anticipate discharge home tomorrow or the following day per pt preference? ?
[2023-06-06] MEDS: BUSPIRONE 10 MG TABLET 7.5 MG PO ×2 (10:37→21:31)
[2023-06-06] MEDS: DOCUSATE SODIUM 100 MG CAPSULE PO (10:37)
[2023-06-06] MEDS: ONDANSETRON 2 MG/ML inj 4 MG IVP (10:40)
--- NOTE | 2023-06-06 10:57 | PM.ANPOST ---
Post Anesthesia Note Post Anesthesia Note Patient seen: Inpatient Respiratory Status: adequate Cardiovascular Status: adequate Mental Status: baseline Pain: adequate Temp: baseline Anesthetic awareness: N/A Complications: none Follow care: none
[2023-06-06] MEDS: SIMETHICONE 80 MG TAB.CHEW PO ×2 (13:51→21:31)
--- NOTE | 2023-06-06 16:57 | PM.EN ---
Chart Event Note Time Seen by Provider: 14:00 Date Seen: 06/06/23 Chart Event Note: RN requested I visited Paula at bedside as she has some concerns about her recovery. Paual has not had a bowel movement and wanted to make sure everything was ok. Her pain has been 6-7/10 at various points but she is hesitant about taking oxycodone due to concern for constipation. Upon entering the room, Paula is resting comfortably in bed. Currently, she reports her pain as manageable (4/10). Overall, this is a much better recovery for her than when she had her bowel obstruction. She has been up and walking. Currently voiding freely and has gone to void several times without issues. No hesitancy, hematuria, or dysuria. This AM she was nauseous but that has improved. She's been able to eat solids without vomiting since last night. She has been passing gas but has not had a bowel movement today. Her last bowel movement was yesterday morning. She does not want to be discharge until she has a bowel movement. I think this is reasonable as she is due to have a BM either today or tomorrow. Discussed with her that walking with help reengaging her bowel function. Discussed being consistent with her bowel regimen, especially while requiring narcotic use. It is ok to take oxycodone as needed for her pain. We do not want her to have uncontrolled pain. She reports that the pain is only bad at the end of yesterday after she had increased in activity. Advised scheduled ibuprofen and tylenol. Oxycodone as needed. We can add Miralax to her bowel regimen as well. Paula wanted to make sure it was ok for her to take a shower. Since she's been ambulating without assistance, she is ok to take a shower. Her dressing is still in place. She can have it removed before or in the shower. Patient denies chest pain, SOB, n/v, headache, RUQ pain, vision changes, dizziness. She want to have a picture of me holding her baby! Physical exam: Vitals: Stable and wnl General: No acute distress Psych: Alert and oriented x4, full affect HEENT: Normocephalic, atraumatic Neck: No cervical adenopathy, no thyromegaly Heart: Regular rate and rhythm, no murmur rub or gallop Lungs: Clear to auscultation bilaterally Abdomen: Normoactive bowel sounds, soft, appropriately tenderness to palpation. No rebound, or guarding. Uterus firm, 2 cm below umbilicus. Incision: Appropriately tender to palpation. Dressing in place - dressing is clean, dry, and intact. No surrounding erythema. Ok to remove. Breasts: Deferred Lower extremities: Trace bilateral lower extremity edema Pelvic exam: Scant lochia on pad
[2023-06-06] MEDS: OXYCODONE 5 MG TABLET PO ×2 (17:55→22:23)
[2023-06-06] MEDS: IBUPROFEN 600 MG TABLET PO (22:23)
[2023-06-07 01:12] LABS: Rapid Plasma Reagin (RPR) Non Reactive (Non Reactive)
[2023-06-07] MEDS: OXYCODONE 5 MG TABLET PO ×5 (03:33→20:41)
[2023-06-07] MEDS: ACETAMINOPHEN 500 MG TABLET 1000 MG PO ×3 (03:33→19:00)
[2023-06-07 03:39] VITALS: BP 126/80; PULSE 71; RESP 16; TEMP 36.6; O2SAT 98
[2023-06-07] MEDS: IBUPROFEN 600 MG TABLET PO ×3 (06:18→20:41)
[2023-06-07] MEDS: LEVOTHYROXINE 50 MCG TABLET PO (06:19)
[2023-06-07 07:42] VITALS: BP 139/80; PULSE 64; RESP 16; TEMP 36.4; O2SAT 98
--- NOTE | 2023-06-07 08:39 | P.OBPN_ITS ---
OB - PN:Subj Subjective Date Seen: 06/07/23 Patient comments OB post-: no complaints [place] status: and doing well feeding status: exclusively Narrative: Paula is a 33 y.o. who was admitted to [facility] & [facility] for primary C/S with scar revision.? She had an uncomplicated primary .? ? The patient feels well.? The pain is well controlled with current medications, although she is more painful today than yesterday. She has no new complaints.? She is breast feeding and reports things are going well, she would like to see today. ? the patient has done well.? Vitals have been stable.? She has remained afebrile.? Has a good appetite, is tolerating a general diet.? She is voiding without difficulty.? She is passing gas and has not had a bowel movement. She has a history or bowel obstruction and is concerned about having a bowel movement today. She has stool softeners and MiraLax ordered for today. ? She is ambulating and denies any dizziness.? Has Small amount of rubra lochia.? She has had two elevated BP's since admission >140/90 but they have not been more than 4 hours apart. OB - PN: Obj Exam Physical Exam: Vital signs: Temp Pulse Resp BP Pulse Ox O2 Del Method 97.6 F 64 16 139/80 98 Room Air 06/07/23 07:42 06/07/23 07:42 06/07/23 07:42 06/07/23 07:42 06/07/23 07:42 06/07/23 07:42 Narrative: GENERAL APPEARANCE:? normal affect, alert, no distress MOOD:? appropriate CHEST:? clear to auscultation HEART:? regular rate and rhythm ABDOMEN:? soft, non-tender the uterine fundus is firm At Umbilicus, Midline and is appropriate for the stage of recovery. EXTREMITIES:? normal and no edema Incision: Healing well, no surrounding erythema, abnormal induration or discharge. Vertical incision open to air. Urinary Catheter Management: Urethral: Cath placed during this visit: yes, but has since been removed by the nurse Reason for continuing: decision to DC catheter Insertion date: 06/05/23 Insertion time: 07:38 Removal date: 06/05/23 Removal time: 17:05 OB - PN: Obj Data Labs Labs: Laboratory Results - last 24 hr 06/05/23 05:30 RPR Screen Non Reactive OB - PN: A/P Delivery Assessment and Plan (1) care and examination immediately after delivery: Status: Acute (2) Lactating mother: Status: Acute Plan day: 2 Plan: routine care Comments: Assessment/Plan?G 3 P 1 status post uncomplicated primary with scar revision.? ?? 1.? Continue route PP cares? 2.? .? May see if desired? 3.? Anticipate discharge home tomorrow or the following day per pt preference? ?
[2023-06-07] MEDS: polyethylene glycoL 3350 17 GM PACK PO (09:08)
[2023-06-07] MEDS: DOCUSATE SODIUM 100 MG CAPSULE PO (09:08)
[2023-06-07] MEDS: BUSPIRONE 10 MG TABLET 7.5 MG PO ×2 (09:14→20:42)
[2023-06-07] MEDS: ONDANSETRON ODT 4 MG TAB PO (11:56)
[2023-06-07] MEDS: SIMETHICONE 80 MG TAB.CHEW PO (13:29)
--- NOTE | 2023-06-07 14:38 | P.OBPN_ITS ---
OB - PN:Subj Subjective Date Seen: 06/07/23 Narrative: Paula has multiple concerns about her bowels today. She has complaints of pressure in abdomen with a feeling like she needs to have a bowel movement but is unable at this time. She reports passing gas and pain is managed with curre nt medications. She admits to having some anxiety about getting a bowel obstruction with her history of surgery for obstruction. OB - PN: Obj Exam Physical Exam: Vital signs: Temp Pulse Resp BP Pulse Ox O2 Del Method 97.6 F 64 16 139/80 98 Room Air 06/07/23 07:42 06/07/23 07:42 06/07/23 07:42 06/07/23 07:42 06/07/23 07:42 06/07/23 07:42 Narrative: GENERAL APPEARANCE:? normal affect, alert, no distress MOOD:? appropriate, mildly anxious ABDOMEN:? soft, non-tender the uterine fundus is firm At Umbilicus, Midline and is appropriate for the stage of recovery. Bowel sounds are present in all 4 quadrants. Incision: Vertical incision is Healing well, no surrounding erythema, abnormal induration or discharge Urinary Catheter Management: Urethral: Cath placed during this visit: yes, but has since been removed by the nurse Reason for continuing: decision to DC catheter Insertion date: 06/05/23 Insertion time: 07:38 Removal date: 06/05/23 Removal time: 17:05 OB - PN: Obj Data Labs Labs: Laboratory Results - last 24 hr 06/05/23 05:30 RPR Screen Non Reactive OB - PN: A/P Delivery Assessment and Plan (1) care and examination immediately after delivery: Status: Acute (2) Lactating mother: Status: Acute Plan day: 2 Plan: routine care Comments: s/p primary C/S with scar revision. Anxiety related to past hx of bowel obstruction surgery. Is passing gas, has soft abdomen and normal bowel sounds today. Reassurance given, education about expected timing of BM around 3-4 days post-op is normal and encouraged to rest.
[2023-06-07 16:51] VITALS: BP 135/77; PULSE 64; RESP 16; TEMP 36.5; O2SAT 98
[2023-06-07 22:30] VITALS: BP 126/78; PULSE 67; RESP 16; TEMP 36.7; O2SAT 97
[2023-06-08] MEDS: OXYCODONE 5 MG TABLET PO ×3 (01:25→10:01)
[2023-06-08] MEDS: ACETAMINOPHEN 500 MG TABLET 1000 MG PO ×2 (01:25→07:52)
[2023-06-08] MEDS: SIMETHICONE 80 MG TAB.CHEW PO (01:32)
[2023-06-08] MEDS: IBUPROFEN 600 MG TABLET PO (04:09)
[2023-06-08 04:45] VITALS: BP 127/79; PULSE 70; RESP 16; TEMP 36.7; O2SAT 97
[2023-06-08] MEDS: LEVOTHYROXINE 50 MCG TABLET PO (05:41)
[2023-06-08 07:48] VITALS: BP 138/84; PULSE 64; RESP 16; TEMP 36.5
[2023-06-08 08:50] LABS: Glucose Fasting 78 mg/dl (70-95)
--- NOTE | 2023-06-08 09:34 | PM.OBDSVD1 ---
DS: Providers Provider Time Seen by Provider: 08:45 Date Seen: 06/08/23 Date of admission: 06/05/23 05:02 Primary care physician: Javid Arellano MD Admitting Clinician: Debra Spence MD Attending Physician on discharge: Debra Spence MD Exam Narrative: Exam Narrative: General: Alert and oriented, in no acute distress Psych: Appropriate mood and affect. Appropriately attentive to baby. Abdomen: Soft, nondistended. Minimal tenderness to palpation in lower quadrants, no rebound or guarding. Fundus palpates at 1 below umbilicus, firm. Midline vertical incision is well approximated without erythema or drainage. Right-sided the incision does palpate more full, no discrete fluid collection, fluctuance or ecchymosis. Const: Vital Signs, click to edit/add: Vital Signs - 24 hr 06/07/23 16:51 06/07/23 22:30 06/08/23 04:45 Temperature 97.7 F 98.1 F 98.1 F Pulse Rate [Pulse Oximeter] 64 67 70 Respiratory Rate 16 16 16 Blood Pressure [Le ft Arm] 135/77 126/78 127/79 Pulse Oximetry 98 97 97 Oxygen Delivery Me thod Room Air Room Air Room Air 06/08/23 07:48 Temperature 97.7 F Pulse Rate [Pulse Oximeter] 64 Respiratory Rate 16 Blood Pressure [Le ft Arm] 138/84 Pulse Oximetry Oxygen Delivery Me thod OB - DS: Summary Hospital Course Hospital Course: The patient is a 33 year old G 1 P 1 at that was admitted to the Center on 06/05/23 for planned primary at 39 weeks. 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 She had an uncomplicated delivery. She delivered a viable male . She is breast feeding. the patient has done well. Paula is feeling well with no acute concerns today. She notes her pain is well controlled. She did have an episode of increased anxiety yesterday when she was having worsening pain and mild nausea, this resolved after a dose of simethicone and such of flatus. She is tolerating p.o. intake without nausea and vomiting. Continues to pass regular flatus, has not yet had a bowel movement. She ambulates without difficulty, no dizziness/lightheadedness, chest pain or dyspnea. Void spontaneously without issue. Lochia is minimal. She is baby Bobby without difficulty, her milk is in. Peripartum Data Procedures: Procedures Operation Date: 06/05/23 07:15 Actual Procedure Side Surgeon p Primary Section and Scar Revision Not Applicable Debra Spence MD Infant Gender: Male Time Spent with Patient Time attestation: Total time spent providing and/or coordinating discharge services: Discharge Plan Discharge Disposition: Home, Self-Care Date of Admission: 06/05/23 05:02 Primary Care Provider: Javid Arellano Condition: Stable Anticipated Discharge Date/Time: 06/08/23 12:00 Discharge Medications: New simethicone 80 mg Tablet,Chewable 80 - 160 mg PO Q4H PRN (Reason: Gas) 7 Days Qty: 20 0RF oxycodone 5 mg Tablet 5 mg PO Q4H PRN (Reason: Pain) 7 Days Qty: 15 0RF Continued epinephrine 0.3 mg/0.3 mL auto-injector 0.3 mg IM .As Needed as needed PRN (Reason: anaphylaxis) Qty: 2 1RF Hold Instructions: PRN ascorbic acid-elderberry fruit [Airborne (elderberry)] 100-50 mg tablet,chewable 1 tab PO DAILY ondansetron 4 mg tablet,disintegrating 4 mg PO .q6hr PRN (Reason: nausea and vomiting) Qty: 30 1RF albuterol sulfate 2.5 mg /3 mL (0.083 %) solution for nebulization 2.5 mg continuous nebulization Q6-8H PRN (Reason: shortness of breath or wheezing) Qty: 90 3RF albuterol sulfate 90 mcg/actuation HFA aerosol inhaler 2 inh inhalation Q4H PRN (Reason: shortness of breath or wheezing) Qty: 6.7 0RF Vitamin 27 mg iron- 800 mcg tablet 1 tab PO DAILY levothyroxine 50 mcg tablet 50 mcg PO DAILY Qty: 90 0RF buspirone 7.5 mg tablet 7.5 mg PO BID Qty: 60 6RF Changed famotidine 20 mg tablet 20 mg PO BID PRN (Reason: Acid Reflux) Qty: 60 1RF omeprazole 20 mg capsule,delayed release(DR/EC) 20 mg PO QDAY PRN (Reason: Acid Reflux) Qty: 30 0RF Discharge Orders: Discharge Order (Routine); Ordered 06/08/23 Ordered By: Debra Spence Patient Education: OB /Breast Feeding Additional Instructions: Lifting restrictions: Please do not lift more than 20lbs for 6 weeks Sexual restriction: Pelvic rest for 6 weeks Pain control: Over the counter Motrin 600 mg by mouth every six hours on a full stomach for pain as needed Over the counter Acetaminophen 1000 mg by mouth every six hours on a full stomach for pain as needed Oxycodone 5mg every 4 hours as needed for breakthrough pain CONSTIPATION REMEDIES: Patients are often constipated after surgery or with use of oral narcotic medicine. You should continue to take the stool softener, Senokot-S during the next six weeks, and consume adequate amounts of water. If you have not had a bowel movement for 3 days after dismissal, or are uncomfortable and unable to pass stool, please try one or all of the following measures: 1. Miralax - 17g mixed in water daily 2. Milk of Magnesia ? 30 cc by mouth every 12 hours 3. Dulcolax suppository ? One suppository per rectum every 4-6 hours 4. Metamucil, Fibercon or other bulk former ? use as directed 5. Prunes or Prune juice If you continue to have constipation after trying the above remedies, or with nausea/vomiting or worsening pain, you should contact your team. Please call with: - Heavy vaginal bleeding - Increasing or severe abdominal pain - Fevers/chills - Inability to tolerate solid/liquids by mouth, recurrent nausea/vomiting - Incision redness/drainage - Signs or symptoms of a blood clot - calf pain, redness, swelling, chest pain or shortness of breath Activity Level: Activity as Tolerated Follow Up Appointments: Javid Arellano MD [Primary Care Provider] - Forms: [facility] Info Instructions
[2023-06-08] MEDS: BUSPIRONE 10 MG TABLET 7.5 MG PO (09:57)
[2023-06-08] MEDS: DOCUSATE SODIUM 100 MG CAPSULE PO (09:57)
[2023-06-08 10:52] LABS: Glucose 2 Hour 92 mg/dl (70-155)
[2023-06-08] MEDS: ONDANSETRON ODT 4 MG TAB PO (11:20)
== END 2023-06-08 11:59 | disposition home or self-care (01) | DRG 540 ==
PROVIDERS: Advanced Practice Midwife; Admitting Provider Obstetrics & Gynecology; PCP Family Medicine; Visit Provider Obstetrics & Gynecology
PROC: 10D00Z1 Extraction of Products of Conception, Low, Open Approach (ICD-10-PCS; CPT 59514; principal; 2023-06-05 07:15)
DX: O82 Encounter for cesarean delivery without indication (principal); O77.0 Labor and delivery complicated by meconium in amniotic fluid; Z37.0 Single live birth; G89.18 Other acute postprocedural pain; O40.3XX0 Polyhydramnios, third trimester, not applicable or unspecified; O99.284 Endocrine, nutritional and metabolic diseases complicating childbirth; O24.420 Gestational diabetes mellitus in childbirth, diet controlled; O99.214 Obesity complicating childbirth; O99.344 Other mental disorders complicating childbirth; F41.9 Anxiety disorder, unspecified; F32.A Depression, unspecified; Z3A.39 39 weeks gestation of pregnancy; O26.893 Other specified pregnancy related conditions, third trimester; Z67.11 Type A blood, Rh negative; K21.9 Gastro-esophageal reflux disease without esophagitis; J45.909 Unspecified asthma, uncomplicated
CPT/HCPCS: 01961; 36415; 64488; 76942; 82947; 82950; 82962; 85018; 85025; 85461; 86592; 86850; 86870; 86880; 86900; 86901; 88307; A9270; C9290; J0665; J0690; J1100; J1630; J1885; J2175; J2210; J2274; J2371; J2405; J2590; J2791; J7120

== ENCOUNTER 2023-07-22 13:59 | Outpatient (CLI) | payer BC, SELFPAY ==
--- OUTSIDE RECORDS SUMMARY | 2023-07-22 14:00 | XMS_ITS | Clinical Summary ---
Author Name Unknown Organization [facility] Address [address] [place] [address] Care Team Providers Care Construction Grip Name Role Phone Needs Pcp, Assignment Primary Care Provider [phone] Source Comments You are receiving this document as you are listed as the primary care provider,follow-up provider, or the patient has been referred to you for consultation.This is in compliance with the Medicare and[facility] EHR Incentive [facility],which states Providers who transition their patient to another setting of careor provider of care or refers their patient to another provider of care shouldprovide summary care record for each transition of care or referral. [facility] Active Allergy Reactions Criticality Noted Date [...] ( - 2022-2 4 season) 2022 Influenza (Season Ended) 2023 020, 04/15/2018, 03/28/2017 DTaP/Tdap/Td (2 - Tdap) 04/15/2028 [...] age to complete this topic Care Teams Construction Grip Relationship Specialty Start Date End Date Needs Pcp, [place] [address] PCP - General 09/19/21
--- OUTSIDE RECORDS SUMMARY | 2023-07-22 14:01 | XMS_ITS | Encounter Summary ---
Author Name Unknown Organization [facility] Address [address] [place] [address] Care Team Providers Care Epidemiologist Name Role Phone Elsewhere, Pcp Primary Care Provider Unavailabl e Reason for Referral * Outpatient (Routine) - Closed Specialty Diagnoses / Procedures Referred By Contact Referred To Contact Gastroenterology and Hepatology Diagnoses Nausea And Vomiting Morris Rodriguez M.D. [address] [place] [id number] [facility] Referral ID Status Reason Start Date Expiration Date Visits Re quested Visits Authorized [id number] Closed 05/21/2018 05/21/2019 1 1 Encounter Details Date Type Department Care Team (Late st Contact Info) Description 05/21/[address] [facility] [address] [place] [address] Morris Rodriguez M.D. [address] [phone] Nausea And Vomiting (Primary Dx) [...] documented as of this encounter Care Teams Epidemiologist Relationship Specialty Start Date End Date Elsewhere, Pcp PCP - General Family Medicine 05/22/18 documented as of this encounter
--- OUTSIDE RECORDS SUMMARY | 2023-07-22 14:01 | XMS_ITS ---
Author Name Unknown Organization [facility] Address [address] [place] [address] Care Team Providers Care Machine Ii Coremaker Name Role Phone Unavailable Unavailable Unavailable Surgery Details Not on file Complications Check Surgery Details section. Procedure Estimated Blood Loss Check Surgery Details section. Procedure Findings Check Surgery Details section. Procedure Specimens Taken Check Surgery Details section.
--- OUTSIDE RECORDS SUMMARY | 2023-07-22 14:01 | XMS_ITS | Clinical Summary ---
Author Name Unknown Organization [facility] Address [place], [place] [address] Care Team Providers Care Staff Radiographer Name Role Phone Pcp, No Primary Care Provider Unavailabl e Allergies Active Allergy Reactions Criticality Noted Date Comments Morphine Hives 12/28/2016 Pineapple Anaphylaxis High 12/28/2016 Metoclopramide Hcl Anxiety 12/28/2016 Sulfa (Sulfonamide Antibiotics) Vomiting 12/28/2016 Other reaction(s): GI intolerance Medications Medication Sig Dispensed Refills Start Date End Date Status [id number] 6-dha 30 mg iron-1mg -200 mg cap Take by mouth. 0 04/16/2018 Active ondansetron (ZOFRAN ODT) 4 mg disintegrating tabletIndications:Na usea and vomiting, intractability of vomiting not specified, unspecified vomiting type Place 1 tablet on the tongue every 8 hours if needed for Nausea/Vomiting. 15 tablet 03/26/2019 Active benzonatate (TESSALON) 100 mg capsuleIndications:C ough Take 1 capsule by mouth 3 times daily if needed for Cough. 15 capsule 03/26/2019 Active albuterol (PROVENTIL) 0.083 % neb solution 04/13/2019 Active levothyroxine (SYNTHROID) 50 mcg tablet 03/25/2019 Active predniSONE (DELTASONE) 20 mg tablet TAKE 1 TABLET BY MOUTH TWICE A DAY FOR 5 DAYS AT START OF WHEEZING/EXACERBA TION, REPEAT IF NEEDED 04/21/2019 Active dextroamphetamine-am phetamine (ADDERALL XR) 20 mg Extended-Release capsule Take 20 mg by mouth once daily Active buPROPion (WELLBUTRIN XL) 150 mg Extended-Release tabletIndications:an xiety with depression Take 150 mg by mouth once daily. Indications: anxiousness associated with depression Active escitalopram oxalate (LEXAPRO) 20 mg tablet Take 20 mg by mouth once daily. 02/22/2020 Active lidocaine, viscous, (XYLOCAINE) 2 % liquidIndications:Va ginal irritation Apply to area of irritation every 6 hours as needed for pain 100 mL 11/17/2021 Active albuterol (PROVENTIL) 0.083 % neb solutionIndications: Exacerbation of asthma, unspecified asthma severity, unspecified whether persistent Inhale 3 mL (2.5 mg) via a nebulizer three times daily. 90 mL 12/29/2021 Active ondansetron (ZOFRAN ODT) 4 mg disintegrating tabletIndications:Ex cessive vomiting in Place 2 Tablets (8 mg) on the tongue every 8 hours if needed for Nausea/Vomiting. 30 Tablet 11/07/2022 Active omeprazole (PRILOSEC) 20 mg Delayed-Release capsule Take 20 mg by mouth once daily. Active famotidine (PEPCID) 20 mg tablet Take 20 mg by mouth two times daily. 04/08/2023 Active busPIRone 7.5 mg tablet Take 7.5 mg by mouth two times daily. 03/29/2023 Active ipratropium (ATROVENT NASAL) 42 mcg (0.06 %) nasal sprayIndications:Sin us congestion Inhale 2 Sprays to both nostrils three times daily. 15 mL 04/20/2023 Active Active Problems Problem Noted Date Diagnosed Date Diarrhea 04/28/2018 Overview: Colonoscopy 04/2018 normal, repeat at age 52 Generalized abdominal pain 04/28/2018 Nausea and vomiting 04/28/2018 Overview: EGD 04/2017 normal, recommend gastric emptying study if symptoms persist Estimated Date of Delivery Comme nts Yes 06/08/2023 Encounters Date Type Department Care Team Description 06/05/2023 Lab Requisition [facility] [phone] Debra Spence MD from Last 3 Months Social History Tobacco [...] Comments Blood Pressure 126/72 04/20/2023 10:52 AM JOURNEYMAN SHEET METAL WORKER Pulse 98 04/20/2023 10:52 AM JOURNEYMAN SHEET METAL WORKER Temperature 35.9 ??C (96.7 ??F) 04/20/2023 1 0:52 AM JOURNEYMAN SHEET METAL WORKER Respiratory Rate 16 04/20/2023 10:5 2 AM JOURNEYMAN SHEET METAL WORKER Oxygen Saturation 98% 04/20/2023 10: 52 AM JOURNEYMAN SHEET METAL WORKER Inhaled Oxygen Concentration - - Weight 92.9 kg (204 lb 11.2 oz) 024 10:52 AM JOURNEYMAN SHEET METAL WORKER Height 170.2 cm (5' 7) 11/07/2022 6:39 AM CDT Body Mass Index 32.06 11/07/2022 6:39 AM CDT Plan of Treatment Health Maintenance Due Date Last Done Comments Tdap 2003 Depression screening for age 12+ 2004 HIV for age 15-65 2007 Hepatitis C screening for ag e 18-79 2010 Tetanus booster 2012 BMI (ht and wt on same day) for age 18+ 12/28/2017 12/28/2016 COVID-19 vaccine series (2022- season) 2022 Influenza for age 9-49 11/10/2023 Pap test for age 21-65 10/31/2025 , 10/31/2022, 04/14/2018 Pneumococcal series for age 6-64 Aged Out No longer eligible b ased on patient's age to complete this topic Procedures Procedure Name Priority Date/Time Associated Diagnosis Comments LAB TRACKING EVENT Routine 06/05/2023 7: 55 AM CDT PATH TISSUE EXAM PLACENTA Routine 06/05/2023 7:55 AM CDT HPV THIN PREP Routine 10/31/2022 11:30 AM CDT from Last 3 Months or Most Recently Relevant to Health Maintenance Results * LAB TRACKING EVENT (06/05/2023 7:55 AM CDT) Other (Other) Client Collect / Unknown 06/05/2023 7:55 AM CDT 06/05/2023 1:53 PM CDT Debra Spence MD LAB BILL ONLY [facility] [address] [place] [address], * PATH TISSUE EXAM PLACENTA (06/05/2023 7:55 AM CDT) Case Report Pathology Report ?Case: [id number] ? Authorizing Provider: ??Debra Spence MD ??Collected: ? 06/05/2023 0755 ? Ordering Location: ? [facility] ?Received: ?06/05/2023 1430 ? Pathologist: ? Crescencio Nuñez MD ? Specimen: ?Placenta ? 06/06/2023 5:03 PM T [facility] Final Diagnosis A) PLACENTA, DELIVERY: 1. Third trimester jimenez placenta with the following characteristics: ? a. Weight: 606 grams (39 week 10-90th percentile weight range, 426 - 611 grams) ? b. Membranes/ surface: ?Negative for chorioamnionitis ? c. Umbilical cord: ?Three vessel cord ?Negative for funisitis ? d. Disc/Villi: ?Chorionic villi consistent with gestational age ?Negative for villitis ?Placental disc without infarcts ? e. Decidua/basal plate: ?No diagnostic abnormalities identified 06/06/2023 5:03 PM [facility] Comment Placental features that have been associated with diabetes mellitus include an enlarged placenta, villous immaturity and increased villous vessel density (chorangiosis). In this case, the placenta is enlarged for gestational age. 06/06/2023 5:03 PM [facility] Clinical Information Indications for Placental Examination by Pathology Maternal indications: ??Diabetes Placental indications: Thick meconium Infectious specimen (e.g. maternal HIV or HCV): No Clinical information: Date of delivery: 06/05/2023 Time of delivery: 0755 Type of delivery: Live born:Yes Gestational age: 39 weeks Sex of infant (s): ??Male Pertinent Maternal History: Maternal parity: Diabetes: Yes Hypertension: No Eclampsia: No Smoking: No 06/06/2023 5:03 PM [facility] Gross Description A) Received fresh labeled with the patient's name and placenta, is a 26 x 20 x 2 cm, 606 g oval placenta with 58 cm long trivascular umbilical cord inserting centrally 7.5 cm from the margin. ??No cord knots or hemorrhages are seen. ??Navarro membranes insert marginally with a rupture point 3 cm from the margin. ??The surface has a dark purplish blue appearance with normally ramifying vessels. ??The maternal surface is intact with small amounts of loosely adherent blood clot. ??On cut section, there is 1 peripheral indurated navarro lesion measuring 1 cm in greatest dimension (less than 5% of cut surfaces are involved). ??Hydroelectric Plant Technician sections are submitted as follows: 1. ??Proximal and distal umbilical cord 2. ??Membranes 3. ??Insertion point of cord 4. ??Peripheral indurated navarro lesion, maternal surface 5, 6. ??Full-thickness sections through central portion of placenta TRB 06/05/2023 06/06/2023 5:03 PM CDT [facility] Microscopic Description The final diagnosis is based on microscopic examination of appropriate sections of all specimens. 06/06/2023 5:03 PM CDT [facility] Additional Information Interpreted at [facility] - [address] [place] [address]. [place] [address] 06/06/2023 5:03 PM CDT [facility] Tissue SPECIMEN FROM PLACENTA / Unknown 06/05/2023 7:55 AM CDT 06/05/2023 2:30 PM CDT Debra Spence MD PATHOLOGY/CYTOLO GY [facility] [address] [place] [address], * HPV HIGH RISK (10/31/2022 11:30 AM CDT) TYPE 16 Negative Negative 11/07/2022 4:51 PM CDT [facility] TYPE 18 Negative Negative 11/07/2022 4:51 PM CDT [facility] OTHER HIGH RISK TYPES Negative Negative 11/07/2022 4:51 PM CDT [facility] Other (Cervical) 10/31/2022 11:30 AM CDT 11/02/2022 1:58 PM CDT Narrative [facility] - 11/07/2022 4:51 PM CDT HPV types 16, 18, 31, 33, 35, 39, 45, 51, 52, 56, 58, 59, 66 and 68 DNA were undetectable or below the pre-set threshold. Methodology: Bar Carolyn 4800 HPV Test Adrienne Davis NP MICROBIOLOGY [facility] [address] [place] [address], from Last 3 Months or Most Recently Relevant to Health Maintenance Care Teams Staff Radiographer Relationship Specialty Start Date End Date Pcp, No . PCP - General 11/17/21
--- OUTSIDE RECORDS SUMMARY | 2023-07-22 14:01 | XMS_ITS | Referral Summary ---
Author Name Unknown Organization [facility] Address [address] [place] [address] Care Team Providers Care Window Caser Name Role Phone Elsewhere, Pcp Primary Care Provider Unavailabl e Source Comments Patient records contain information from all sites at [facility]. For routine questions regarding patient records, call [phone] during business hours, M-F 8:00 AM - 5:00 PM Central Time. Record requests for emergency care only can be directed to [phone] at any time.[facility] Allergies Active Allergy Reactions Criticality Noted Date [...] mg tablet Take 10 mg by mouth. 07/12/2017 Active LORazepam (ATIVAN) 0.5 mg tablet Take 0.5 mg by mouth. 04/24/2018 Active ondansetron ODT (ZOFRAN-ODT) 4 mg [...] and Family Once a week 09/01/2018 Attends Religion Services Never 09/01 Active Member of Clubs [...] Paying Living Expenses Somewhat [address] 09/01/2018 [facility] Occupat ional Health - Occupational Stress [...] of Treatment Not on file Care Teams Window Caser Relationship Specialty Start Date End Date Elsewhere, Pcp PCP - General Family Medicine 05/22/18
--- OUTSIDE RECORDS SUMMARY | 2023-07-22 14:01 | XMS_ITS | Clinical Summary ---
Author Name Unknown Organization [facility] Address [address] [place] [address] Care Team Providers Care Data Warehousing Engineer Name Role Phone Elsewhere, Pcp Primary Care Provider Unavailabl e Source Comments Patient records contain information from all sites at [facility]. For routine questions regarding patient records, call [phone] during business hours, M-F 8:00 AM - 5:00 PM Central Time. Record requests for emergency care only can be directed to [phone] at any time.[facility] Allergies Active Allergy Reactions Criticality Noted [...] and Family Once a week 09/01/2018 Attends Taoist Services Never 09/01 Active Member of Clubs [...] Paying Living Expenses Somewhat [address] 09/01/2018 [facility] Occupat ional Health - [...] Cancer Screening 1992 HIV Screening 1992 Hepatitis C Screening 1992 Hepatitis B Vaccines (1 of 3 - 19+ 3-dose series) 2011 COVID-19 Vaccine (1 - 2022-2 4 season) 2022 Influenza Vaccine (#1) 2022 , 04/15/2018, 03/28/2017 Depression Screening (Annual PHQ-2) 03/11/2023 DTaP,Tdap,and Td Vaccines (3 - Td or Tdap) 03/20/2033 03/20/2023, 04/15/2018 Pneumococcal vaccine (0-64 years) Aged Out 04/15/2018 No longer eligible b ased on patient's age to complete this topic HPV Vaccines Aged Out No longer eligi ble based on patient's age to complete this topic Care Teams Data Warehousing Engineer Relationship Specialty Start Date End Date Elsewhere, Pcp PCP - General Family Medicine 05/22/18
== END 2023-07-22 14:00 | disposition home or self-care (01) ==
LOC: NFLDREF 13:59
PROVIDERS: PCP Family Medicine; Visit Provider Obstetrics & Gynecology
DX: Z39.2 Encounter for routine postpartum follow-up (principal); E03.9 Hypothyroidism, unspecified; R79.89 Other specified abnormal findings of blood chemistry
CPT/HCPCS: 84443

== ENCOUNTER 2023-07-30 14:39 | Outpatient (CLI) | payer BC, SELFPAY ==
--- OUTSIDE RECORDS SUMMARY | 2023-07-30 14:41 | XMS_ITS | Clinical Summary ---
Author Name Unknown Organization [facility] Address [place], [place] [address] Care Team Providers Care Cake Tester Name Role Phone Pcp, No Primary Care Provider Unavailabl e Allergies Active Allergy Reactions Criticality Noted Date Comments Morphine Hives 12/28/2016 Pineapple Anaphylaxis High 12/28/2016 Metoclopramide Hcl Anxiety 12/28/2016 Sulfa (Sulfonamide Antibiotics) Vomiting 12/28/2016 Other reaction(s): GI intolerance Medications Medication Sig Dispensed Refills Start Date End Date Status [id number]-[id number] 6-dha 30 mg iron-1mg -200 mg cap [...] Department Care Team Description 06/05/2023 Lab Requisition [facility] [phone] Debra Spence MD from Last 3 Months [...] Comments Blood Pressure 126/72 04/20/2023 10:52 AM BLADDER TRIMMER Pulse 98 04/20/2023 10:52 AM BLADDER TRIMMER Temperature 35.9 ??C (96.7 ??F) 04/20/2023 1 0:52 AM BLADDER TRIMMER Respiratory Rate 16 04/20/2023 10:5 2 AM BLADDER TRIMMER Oxygen Saturation 98% 04/20/2023 10: 52 AM BLADDER TRIMMER Inhaled Oxygen Concentration - - Weight 92.9 kg (204 lb 11.2 oz) 024 10:52 AM BLADDER TRIMMER Height 170.2 cm (5' 7) 11/07/2022 6:39 [...] CDT Debra Spence MD LAB BILL ONLY [facility] [address] [place] [address], * PATH TISSUE EXAM PLACENTA (06/05/2023 7:55 AM CDT) Case Report Pathology Report ?Case: [id number] ? Authorizing Provider: ??Debra Spence MD ??Collected: ? 06/05/2023 0755 ? Ordering Location: ? [facility] ?Received: ?06/05/2023 1430 ? Pathologist: ? Crescencio Nuñez MD ? Specimen: ?Placenta ? 06/06/2023 5:03 PM T [facility] Final Diagnosis A) PLACENTA, [...] ?No diagnostic abnormalities identified 06/06/2023 5:03 PM [facility] Comment Placental features that have been associated with diabetes mellitus include an enlarged placenta, villous immaturity and increased villous vessel density (chorangiosis). In this case, the placenta is enlarged for gestational age. 06/06/2023 5:03 PM [facility] Clinical Information Indications for Placental [...] Eclampsia: No Smoking: No 06/06/2023 5:03 PM [facility] Gross Description A) Received fresh [...] than 5% of cut surfaces are involved). ??Buttermaker sections are submitted as follows: 1. ??Proximal and distal umbilical cord 2. ??Membranes 3. ??Insertion point of cord 4. ??Peripheral indurated navarro lesion, maternal surface 5, 6. ??Full-thickness sections through central portion of placenta TRB 06/05/2023 06/06/2023 5:03 PM CDT [facility] Microscopic Description The final diagnosis is based on microscopic examination of appropriate sections of all specimens. 06/06/2023 5:03 PM CDT [facility] Additional Information Interpreted at [facility] - [address] [place] [address]. [place] [address] 06/06/2023 5:03 PM CDT [facility] Tissue SPECIMEN FROM PLACENTA / Unknown 06/05/2023 7:55 AM CDT 06/05/2023 2:30 PM CDT Debra Spence MD PATHOLOGY/CYTOLO GY [facility] [address] [place] [address], * HPV HIGH RISK (10/31/2022 11:30 AM CDT) TYPE 16 Negative Negative 11/07/2022 4:51 PM CDT [facility] TYPE 18 Negative Negative 11/07/2022 4:51 PM CDT [facility] OTHER HIGH RISK TYPES Negative Negative 11/07/2022 4:51 PM CDT [facility] Other (Cervical) 10/31/2022 11:30 AM CDT 11/02/2022 1:58 PM CDT Narrative [facility] - 11/07/2022 4:51 PM CDT HPV types 16, 18, 31, 33, 35, 39, 45, 51, 52, 56, 58, 59, 66 and 68 DNA were undetectable or below the pre-set threshold. Methodology: Bar Carolyn 4800 HPV Test Adrienne Davis NP MICROBIOLOGY [facility] [address] [place] [address], from Last 3 Months or Most Recently Relevant to Health Maintenance Care Teams Cake Tester Relationship Specialty Start Date End Date Pcp, No . PCP - General 11/17/21
--- OUTSIDE RECORDS SUMMARY | 2023-07-30 14:41 | XMS_ITS | Clinical Summary ---
Author Name Unknown Organization [facility] Address [address] [place] [address] Care Team Providers Care Aircraft Assembler Name Role Phone Needs Pcp, Assignment Primary Care Provider [phone] Source Comments You are receiving this document as you are listed as the primary care provider,follow-up provider, or the patient has been referred to you for consultation.This is in compliance with the Medicare and[facility] EHR Incentive Program,which states Providers who transition their patient to another setting of careor provider of care or refers their patient to another provider of care shouldprovide summary care record for each transition of care or referral. [facility] Allergies Active Allergy Reactions Criticality Noted Date [...] age to complete this topic Care Teams Aircraft Assembler Relationship Specialty Start Date End Date Needs Pcp, [place] [address] PCP - General 09/19/21
--- NOTE | 2023-07-30 15:00 | US_ITS ---
Patient: GHADA RODGERS Facility:?[facility] Patient ID:?[id number] Site Patient ID:?[id number]. Site :?1990 Study:?US-Pelvis -07/30/2023 3:54:09 PM Ordering Physician:?Debra Spence Final Report: INDICATION: Prolonged bleeding, possible retained products of conception TECHNIQUE: Ultrasound pelvis transvaginal for better assessment or to better visualize the endometrium. Real-time sonographic images with spectral and color Doppler imaging of the ovaries were obtained. COMPARISON: None FINDINGS: Uterus: 9.6 x 4.8 x 6.7 cm. Normal echotexture of the myometrium. No masses. Endometrium: Transvaginal imaging was performed to better evaluate the endometrium. Endometrial thickness measures 7 mm. Defect in the endometrial cavity at the lower uterine segment anteriorly consistent with a section scar. Some fluid noted within the lower uterine segment in the endometrial cavity. Some echogenic areas are identified within the endometrial cavity. No hypervascularity. Right ovary is not seen with only shadowing bowel gas in the adnexa. Left ovary measures 2.8 x 1.7 x 1.4 centimeters and shows normal blood flow. Simple left ovarian cyst measuring 1.4 centimeters. Cul-de-sac: No significant free fluid. IMPRESSION: 1. Endometrial thickness of 7 millimeters with some echogenic areas in the endometrial cavity which can represent areas of calcification or proteinaceous debris. Small fluid in the lower uterine segment with section scar noted. No definite endometrial thickening or hypervascularity to suggest retained products of conception. 2. Unremarkable sonographic appearance to the left ovary. Right ovary not seen with only shadowing bowel gas in the adnexa. Dictated by Sukh Howard MD @ 07/30/2023 4:00:45 PM Signed by:?Sukh Howard MD @07/30/2023 4:00:45 PM (Electronic Signature)
== END 2023-07-30 14:40 | disposition home or self-care (01) ==
LOC: US 14:40
PROVIDERS: PCP Family Medicine; Visit Provider Obstetrics & Gynecology
DX: N93.9 Abnormal uterine and vaginal bleeding, unspecified (principal); R39.89 Other symptoms and signs involving the genitourinary system; Z98.891 History of uterine scar from previous surgery
CPT/HCPCS: 76830; 93976

== ENCOUNTER 2023-10-10 14:16 | Outpatient (CLI) | payer BC, SELFPAY ==
--- OUTSIDE RECORDS SUMMARY | 2023-10-10 14:22 | XMS_ITS | Clinical Summary ---
Author Organization [facility] Address [address], [place] [address] Care Team Providers Care Micrographics Services Supervisor Name Role Phone Needs Pcp, Assignment Primary Care Provider [phone] Source Comments You are receiving this document as you are listed as the primary care provider,follow-up provider, or the patient has been referred to you for consultation.This is in compliance with the Medicare and[facility] EHR Incentive Program,which states Providers who transition their patient to another setting of careor provider of care or refers their patient to another provider of care shouldprovide summary care record for each transition of care or referral. Media Matchmaker Allergies Active Allergy Reactions Criticality Noted Date [...] - 2022-2 4 season) 2022 Influenza (#1) 2023 04/21/2019, 04/15/2018, 03/28/2017 DTaP/Tdap/Td (2 - Tdap) [...] age to complete this topic Care Teams Micrographics Services Supervisor Relationship Specialty Start Date End Date Needs Pcp, [place] [address] PCP - General 09/19/21
--- OUTSIDE RECORDS SUMMARY | 2023-10-10 14:22 | XMS_ITS | Clinical Summary ---
Author Organization [facility] Address [place], [place] [address] Care Team Providers Care Fashion Patternmaker Name Role Phone Pcp, No Primary Care Provider Unavailabl e Allergies Active Allergy Reactions Criticality Noted Date Comments Morphine Hives 12/28/2016 Pineapple Anaphylaxis High 12/28/2016 Metoclopramide Hcl Anxiety 12/28/2016 Sulfa (Sulfonamide Antibiotics) Vomiting 12/28/2016 Other reaction(s): GI intolerance Medications Medication Sig Dispensed Refills Start Date End Date Status 44-iecv-bwykkj 6-dha 30 mg iron-1mg -200 mg cap [...] Outcome GA Total Labor Labor/2nd/3rd Weight Sex Type Anes PTL Shira A1 A5 Name Clin SAB Current Last Filed Vital Signs Vital Sign Reading Time Taken Comments Blood Pressure 126/72 04/20/2023 10:52 AM BLANKET WEAVER Pulse 98 04/20/2023 10:52 AM BLANKET WEAVER Temperature 35.9 ??C (96.7 ??F) 04/20/2023 1 0:52 AM BLANKET WEAVER Respiratory Rate 16 04/20/2023 10:5 2 AM BLANKET WEAVER Oxygen Saturation 98% 04/20/2023 10: 52 AM BLANKET WEAVER Inhaled Oxygen Concentration - - Weight 92.9 kg (204 lb 11.2 oz) 024 10:52 AM BLANKET WEAVER Height 170.2 cm (5' 7) 11/07/2022 6:39 [...] Procedure Name Priority Date/Time Associated Diagnosis Comments HPV THIN PREP Routine 10/31/2022 11:30 AM CDT from Last 3 Months or Most Recently Relevant to Health Maintenance Results * HPV HIGH RISK (10/31/2022 11:30 AM CDT) TYPE 16 Negative Negative 11/07/2022 4:51 PM CDT [facility] TYPE 18 Negative Negative 11/07/2022 4:51 PM CDT [facility] OTHER HIGH RISK TYPES Negative Negative 11/07/2022 4:51 PM CDT [facility] Other (Cervical) 10/31/2022 11:30 AM CDT 11/02/2022 1:58 PM CDT Narrative [facility] - 11/07/2022 4:51 PM CDT HPV types 16, 18, 31, 33, 35, 39, 45, 51, 52, 56, 58, 59, 66 and 68 DNA were undetectable or below the pre-set threshold. Methodology: Bar Carolyn 4800 HPV Test Adrienne Davis NP MICROBIOLOGY [facility] [address] [place] [address], from Last 3 Months or Most Recently Relevant to Health Maintenance Care Teams Fashion Patternmaker Relationship Specialty Start Date End Date Pcp, No . PCP - General 11/17/21
== END 2023-10-10 14:17 | disposition home or self-care (01) ==
PROVIDERS: PCP Family Medicine; Visit Provider Internal Medicine
DX: R79.89 Other specified abnormal findings of blood chemistry (principal); E03.9 Hypothyroidism, unspecified; R35.0 Frequency of micturition; L65.9 Nonscarring hair loss, unspecified
CPT/HCPCS: 80053; 84443; 87086

== ENCOUNTER 2023-11-14 12:23 | Emergency (ER) | payer BC, SELFPAY ==
[2023-11-14 12:27] VITALS: BP 151/80; PULSE 86; RESP 18; TEMP 36.6; O2SAT 100; BMI 32.3
--- OUTSIDE RECORDS SUMMARY | 2023-11-14 12:48 | XMS_ITS | Clinical Summary ---
Author Organization [facility] Address [place], [place] [address] Care Team Providers Care Community Health Nurse Name Role Phone Pcp, No Primary Care Provider Unavailabl e Allergies Active Allergy Reactions Criticality Noted Date Comments Morphine Hives 12/28/2016 Pineapple Anaphylaxis High 12/28/2016 Metoclopramide Hcl Anxiety 12/28/2016 Sulfa (Sulfonamide Antibiotics) Vomiting 12/28/2016 Other reaction(s): GI intolerance Medications Medication Sig Dispensed Refills Start Date End Date Status 80-[id number] 6-dha 30 mg iron-1mg -200 mg cap [...] Comments Blood Pressure 126/72 04/20/2023 10:52 AM SUPERVISOR [employer] Pulse 98 04/20/2023 10:52 AM [employer]PER[employer] Temperature 35.9 ??C (96.7 ??F) 04/20/2023 1 0:52 AM SUPERVIS[employer] Respiratory Rate 16 04/20/2023 10:5 2 AM SUPER[employer] Oxygen Saturation 98% 04/20/2023 10: 52 AM SUPERVISOR [employer] Inhaled Oxygen Concentration - - Weight 92.9 kg (204 lb 11.2 oz) 024 10:52 AM SUPERVIS[employer] Height 170.2 cm (5' 7) 11/07/2022 6:39 [...] 12/28/2017 12/28/2016 COVID-19 vaccine series (2022- season) 2023 Influenza for age 9-49 11/10/2023 Pap test [...] 16 Negative Negative 11/07/2022 4:51 PM CDT [facility] TYPE 18 Negative Negative 11/07/2022 4:51 PM CDT [facility] OTHER HIGH RISK TYPES Negative Negative 11/07/2022 4:51 PM CDT [facility] Other (Cervical) 10/31/2022 11:30 AM CDT 11/02/2022 1:58 PM CDT Narrative [facility] - 11/07/2022 4:51 PM CDT HPV types 16, 18, 31, 33, 35, 39, 45, 51, 52, 56, 58, 59, 66 and 68 DNA were undetectable or below the pre-set threshold. Methodology: Bar Carolyn 4800 HPV Test Adrienne Davis NP MICROBIOLOGY [facility] [address] [place] [address], from Last 3 Months or Most Recently Relevant to Health Maintenance Care Teams Community Health Nurse Relationship Specialty Start Date End Date Pcp, No . PCP - General 11/17/21
--- OUTSIDE RECORDS SUMMARY | 2023-11-14 12:48 | XMS_ITS | Clinical Summary ---
Author Organization [facility] Address [address], [place] [address] Care Team Providers Care Operations Staff Specialist Security Name Role Phone Needs Pcp, Assignment Primary Care Provider [phone] Source Comments You are receiving this document as you are listed as the primary care provider,follow-up provider, or the patient has been referred to you for consultation.This is in compliance with the Medicare and[facility] E[facility] Incentive [facility],which states Providers who transition their patient to another setting of careor provider of care or refers their patient to another provider of care shouldprovide summary care record for each transition of care or referral. [employer] Allergies Active Allergy Reactions Criticality Noted Date [...] COVID-19 Vaccine ( - 2022-2 4 season) 2023 Influenza (#1) 2023 04/21/2019, 04/15/2018, 03/28/2017 DTaP/Tdap/Td [...] age to complete this topic Care Teams Operations Staff Specialist Security Relationship Specialty Start Date End Date Needs Pcp, [place] [address] PCP - General 09/19/21
[2023-11-14] MEDS: diphenhydrAMINE 25 MG CAPSULE 50 MG PO (12:55)
[2023-11-14] MEDS: predniSONE 20 MG TABLET 40 MG PO (12:55)
--- NOTE | 2023-11-14 13:01 | ED_ITS ---
HPI - General Adult General Date Seen: 11/14/23 Chief complaint: Allergic Reaction Stated complaint: Allergic reaction trouble breathing Time Seen by Provider: 11/14/23 12:24 Source: patient Mode of arrival: ambulatory Limitations: no limitations History of Present Illness HPI narrative: Patient is a 33-year-old female presenting for concern of allergic reaction. She states while she was driving she was feeling like there is a lump in the back of her throat. States she has had some difficulty swelling since then and the lump would not go away. She is not having any chest pain, shortness of breath, difficulty breathing, abdominal pain, nausea/vomiting, weakness, numbness. Has not noticed any rashes. States she has had allergic reaction before were or eating some pineapple caused her throat to close up and she needed an EpiPen. She states this feels different.. No other concerns noted at this time. The only recent changes she can not think of his was started on Effexor 4 days ago. States she spoke to her primary care provider who is clinic told her to call 911. She had her drive her in instead. Has not tried Benadryl yet. Related Data Home Medications ?Medication ?Instructions ?Recorded ?Confirmed ascorbic acid 100 mg-elderberry 1 tab PO DAILY 10/31/22 10/10/23 fruit 50 mg chewable tablet (Airborne (elderberry)) Previous Rx's ?Medication ?Instructions ?Recorded epinephrine 0.3 mg/0.3 mL 0.3 mg (0.3 mL) IM .As Needed as 06/06/22 injection, auto-injector needed PRN anaphylaxis #2 ea albuterol sulfate 2.5 mg/3 mL 2.5 mg (3 mL) continuous 01/23/23 (0.083 %) solution for nebulization nebulization Q6-8H PRN shortness of breath or wheezing #90 mL albuterol sulfate 90 mcg/actuation 2 inh inhalation Q4H PRN shortness 01/23/23 aerosol inhaler of breath or wheezing #6.7 grams ondansetron 4 mg disintegrating 4 mg PO .q6hr PRN nausea and 01/23/23 tablet vomiting #30 tabs levothyroxine 50 mcg tablet 50 mcg PO DAILY #90 tabs 10/30/23 bupropion HCl 150 mg tablet,12 hr 150 mg PO QDAY #30 tabs 11/14/23 sustained-release (Wellbutrin SR) prednisone 20 mg tablet 40 mg (2 x 20 mg) PO DAILY #8 tabs 11/14/23 Allergies Allergy/AdvReac Type Severity Reaction Status Date / Time pineapple Allergy Severe Anaphylaxis Verified 10/10/23 13:59 metoclopramide Allergy Intermediate Jittery Verified 10/10/23 13:59 and anxious Sulfa (Sulfonamide Allergy Intermediate Vomiting Verified 10/10/23 13:59 Antibiotics) latex Allergy Mild Unknown Verified 10/10/23 13:59 Review of Systems Status of ROS: Reports: 10 or more systems reviewed and unremarkable except as noted in History and below [facility] Medical History Urinary frequency ?R35.0 - Frequency of micturition (ICD-10) Hair loss ?L65.9 - Nonscarring hair loss, unspecified (ICD-10) COVID-19 ?U07.1 - COVID-19 (ICD-10) Low lying placenta nos or without hemorrhage, third trimester ?O44.43 - Low lying placenta NOS or without hemorrhage, third trimester (ICD- 10) Low vitamin D level ?R79.89 - Other specified abnormal findings of blood chemistry (ICD-10) Intussusception of intestine ?K56.1 - Intussusception (ICD-10) Hypothyroidism ?E03.9 - Hypothyroidism, unspecified (ICD-10) 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 (ICD-10) GERD (gastroesophageal reflux disease) ?K21.9 - Gastro-esophageal reflux disease without esophagitis (ICD-10) Gestational diabetes ?O24.419 - Gestational diabetes mellitus in , unspecified control (ICD-10) Hemorrhage in early ?O20.9 - Hemorrhage in early , unspecified (ICD-10) Surgical History H/O eye surgery ?Z98.890 - Other specified postprocedural states (ICD-10) History of endoscopy ?Z98.890 - Other specified postprocedural states (ICD-10) History of colonoscopy ?Z98.890 - Other specified postprocedural states (ICD-10) History of abdominal surgery ?Z98.890 - Other specified postprocedural states (ICD-10) Family History Other Heart disease Mental disorder Seizures Type 2 diabetes mellitus Social History Narrative: , 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, 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 [employer] What is your current living situation?: I presently have a place to live Problems where you live: no known problems In the past 12 months, utilities in danger of being shut off: no In past 12 months, lack of transportation kept you from medical appts, meetings, work, or getting things needed for daily living: no In the past 12 mos, have been you worried that your food would run out before you had money to buy more?: never true In the past 12 mos, the food you bought just didn't last and you didn't have money to buy more?: never true Smoking Status: Never smoker Do you use any of these nicotine containing products: None Second hand tobacco smoke exposure: No How often do you have a drink containing alcohol: never How many standard drinks containing alcohol do you have on a typical day: 1 or 2 How often do you have six or more drinks on one occasion: Never AUDIT-C Alcohol total score: 0 Non-prescribed substance use: denies use Caffeine: Yes (soda energy drinks) How often does anyone, including family, friends and others, physically hurt you : never How often does anyone, including family, friends and others, insult or talk down to you: never How often does anyone, including family, friends and others, threaten you with harm: never How often does anyone, including family, friends and others, scream or curse at you: never Little interest or pleasure in doing things: several days Feeling down, depressed, or hopeless: more than half the days Are you using contraception or practicing any form of control: No service: No Exam Narrative: Exam Narrative: Const: Well-nourished, Well-developed, in mild distress Eyes: PERRL, no conjunctival injection, and symmetrical lids HENT: Atraumatic external nose and ears. Moist mucous membranes. Neck: Symmetric, trachea midline, No thyromegaly. CVS: RRR, No murmurs or gallops. Peripheral pulses 2+ and equal in all extremities RESP: Unlabored respiratory effort. Clear to auscultation bilaterally. GI: Nontender/Nondistended, No rebound or guarding. MSK:Extremities w/o deformity, Normal Active ROM Skin: Warm, Dry. No rashes or lesions. Neuro: Normal Muscle tone, No focal neurological deficits. Psych: Awake, Alert, & Oriented x3. Appropriate mood and affect. Const: Vital Signs, click to edit/add: Vital Signs - 24 hr 11/14/23 12:27 Temperature 97.8 F Pulse Rate [Right Pulse Oximeter] 86 Respiratory Rate 18 Blood Pressure [Ri ght Upper Arm] 151/80 H Pulse Oximetry 100 Oxygen Delivery Me thod Room Air Course Vital Signs Vital signs: Initial Vital Signs Temperature 97.8 F 11/14/23 12:27 Temperature Source Temporal Artery Scan 11/14/23 12:27 Pulse Rate 86 11/14/23 12:27 Respiratory Rate 18 11/14/23 12:27 Blood Pressure 151/80 H 11/14/23 12:27 Blood Pressure Mean 103 11/14/23 12:27 Blood Pressure Position Sitting 11/14/23 12:27 Pulse Oximetry 100 11/14/23 12:27 Oxygen Delivery Method Room Air 11/14/23 12:27 Vital Signs Temperature 97.8 F 11/14/23 12:27 Pulse Rate 86 11/14/23 12:27 Respiratory Rate 18 11/14/23 12:27 Blood Pressure 151/80 H 11/14/23 12:27 Pulse Oximetry 100 11/14/23 12:27 Oxygen Delivery Method Room Air 11/14/23 12:27 Temperature 97.8 F 11/14/23 12:27 Pulse Rate 86 11/14/23 12:27 Respiratory Rate 18 11/14/23 12:27 Blood Pressure 151/80 H 11/14/23 12:27 Pulse Oximetry 100 11/14/23 12:27 Oxygen Delivery Method Room Air 11/14/23 12:27 Medications Administered Medications: Discontinued Medications Generic Name Dose Route Start Last Admin Trade Name Freq PRN Reason Stop Dose Admin Diphenhydramine HCl 50 mg 11/14/23 12:38 11/14/23 12:55 Diphenhydramine 25 Mg Capsule PO 11/14/23 12:39 50 mg ONCE ONE Administration Prednisone 40 mg 11/14/23 12:38 11/14/23 12:55 Prednisone 20 Mg Tablet PO 11/14/23 12:39 40 mg ONCE ONE Administration Medical Decision Making MDM Narrative Medical decision making narrative: Patient is a 33-year-old female presenting for concern of allergic reaction. I do not see any rashes she is not having any symptoms that would be consistent with anaphylaxis. Vital signs are stable. At this time will have her drink some fluids and will try some Benadryl and prednisone in case this is an allergic reaction. After the medication she states she feels like the swelling that she could feel an hurts esophagus has gone down but she still feels like there is a lump whenever she tries to swallow anything. Is still not having any chest pain, shortness of breath, GI symptoms. Is still having normal vital signs. I am not completely convinced this is not allergic reaction but I will discharge her with steroids as a precautionary measure. She is agreeable with this plan. I asked if she would feel more comfortable if we continue to monitor her longer but she states she feels like she is good to go home and will return if symptoms worsen. She already has an EpiPen Discharge Plan Discharge Clinical Impression: Allergic reaction Qualifiers: Encounter type: initial encounter Qualified Code(s): T78.40XA - Allergy, unspecified, initial encounter Patient Disposition: Home, Self-Care Condition: Improved Instructions: General Allergic Reaction (ED) Additional Instructions: Return to emergency department for re-evaluation for any new or worsening symptoms. Take the steroids as directed. Can continue take Benadryl, zyrtec or any other izjy-tov-nsfrqdb antihistamine as needed for symptom Prescriptions: New prednisone 20 mg tablet 40 mg PO DAILY Qty: 8 0RF Rx Instructions: Start taking 11/15/2023 No Action epinephrine 0.3 mg/0.3 mL auto-injector 0.3 mg IM .As Needed as needed PRN (Reason: anaphylaxis) Qty: 2 1RF Hold Instructions: PRN ascorbic acid-elderberry fruit [Airborne (elderberry)] 100-50 mg tablet,chewable 1 tab PO DAILY ondansetron 4 mg tablet,disintegrating 4 mg PO .q6hr PRN (Reason: nausea and vomiting) Qty: 30 1RF albuterol sulfate 2.5 mg /3 mL (0.083 %) solution for nebulization 2.5 mg continuous nebulization Q6-8H PRN (Reason: shortness of breath or wheezing) Qty: 90 3RF albuterol sulfate 90 mcg/actuation HFA aerosol inhaler 2 inh inhalation Q4H PRN (Reason: shortness of breath or wheezing) Qty: 6.7 0RF levothyroxine 50 mcg tablet 50 mcg PO DAILY Qty: 90 0RF bupropion HCl [Wellbutrin SR] 150 mg tablet sustained-release 12 hr 150 mg PO QDAY Qty: 30 0RF Follow Up/Referrals: Bk Mcclellan MD [Primary Care Provider] - Stand Alone Forms: [facility] Medical Info Instructions
== END 2023-11-14 14:04 | disposition home or self-care (01) ==
PROVIDERS: Emergency Provider Student in an Organized Health Care Education/Training Program; PCP Internal Medicine
DX: T78.40XA Allergy, unspecified, initial encounter (principal)
CPT/HCPCS: 99283; A9270; J7512

== ENCOUNTER 2024-02-13 14:23 | Outpatient (CLI) | payer BC, SELFPAY ==
--- OUTSIDE RECORDS SUMMARY | 2024-02-13 14:25 | XMS_ITS | Clinical Summary ---
Author Organization [facility] Address [address], [place] [address] Care Team Providers Care Metalizing Supervisor Name Role Phone Needs Pcp, Assignment Primary Care Provider [phone] Source Comments You are receiving this document as you are listed as the primary care provider,follow-up provider, or the patient has been referred to you for consultation.This is in compliance with the Medicare and[facility] Incentive [facility],which states Providers who transition their patient to another setting of careor provider of care or refers their patient to another provider of care shouldprovide summary care record for each transition of care or referral. [employer] Allergies Active Allergy Reactions Criticality Noted Date [...] 78 10/18/2022 12:30 PM CDT Temperature 36.7 C (98.1 F) 10/18/2022 10:32 AM CDT Respiratory Rate 18 10/18/2022 10:32 AM CDT [...] HepB (1) 2011 COVID-19 Vaccine ( - 2023-2 5 season) 2023 Influenza (#1) 2023 04/21/2019, 04/15/2018, [...] on patient's age to complete this topic RSV Aged Out No longer eligi ble based on patient's age to complete this topic MCV4 Aged Out No longer eligi ble based on patient's age to complete this topic Care Teams Metalizing Supervisor Relationship Specialty Start Date End Date Needs Pcp, [place] [address] PCP - General 09/19/21
--- OUTSIDE RECORDS SUMMARY | 2024-02-13 14:25 | XMS_ITS | Clinical Summary ---
Author Organization [facility] Address [place], [place] [address] Care Team Providers Care Environmental Maintenance Worker Name Role Phone Pcp, No Primary Care Provider Unavailabl e Allergies Active Allergy Reactions Criticality Noted Date Comments Morphine Hives 12/28/2016 Pineapple Anaphylaxis High 12/28/2016 Metoclopramide Hcl Anxiety 12/28/2016 Sulfa (Sulfonamide Antibiotics) Vomiting 12/28/2016 Other reaction(s): GI intolerance Medications Medication Sig Dispensed Refills Start Date End Date Status 29-cpvt-brfzdj 6-dha 30 mg iron-1mg -200 mg cap [...] Problem Noted Date Diagnosed Date Diarrhea 04/28/2018 Overview (04/30/2018): Colonoscopy 04/2018 normal, repeat at age 52 Generalized abdominal pain 04/28/2018 Nausea and vomiting 04/28/2018 Overview (04/30/2018): EGD 04/2017 normal, recommend gastric emptying study [...] Comments Blood Pressure 126/72 04/20/2023 10:52 AM CIRCULATION CLERK Pulse 98 04/20/2023 10:52 AM CIRCULATION CLERK Temperature 35.9 C (96.7 F) 04/20/2023 10:52 AM CIRCULATION CLERK Respiratory Rate 16 04/20/2023 10:5 2 AM CIRCULATION CLERK Oxygen Saturation 98% 04/20/2023 10: 52 AM CIRCULATION CLERK Inhaled Oxygen Concentration - - Weight 92.9 kg (204 lb 11.2 oz) 024 10:52 AM CIRCULATION CLERK Height 170.2 cm (5' 7) 11/07/2022 6:39 [...] age 18+ 12/28/2017 12/28/2016 COVID-19 vaccine series (2023- season) 2023 Influenza for age 9-49 11/10/2023 Pap test for age 21-65 10/31/2025 , 10/31/2022, 04/14/2018 RSV vaccine for adults or (1 - 1-dose 75+ series) 2067 Pneumococcal series for age 6-64 Aged Out No longer eligible b ased on patient's age to complete this topic Procedures Procedure Name Priority Date/Time Associated Diagnosis Comments HPV HIGH RISK Routine 10/31/2022 11:30 AM CDT from Last 3 Months or Most Recently Relevant to Health Maintenance Results * HPV HIGH RISK (10/31/2022 11:30 AM CDT) TYPE 16 Negative Negative 11/07/2022 4:51 PM CDT [facility] TYPE 18 Negative Negative 11/07/2022 4:51 PM CDT [facility] OTHER HIGH RISK TYPES Negative Negative 11/07/2022 4:51 PM CDT [facility] Other (Cervical) 10/31/2022 11:30 AM CDT 11/02/2022 1:58 PM CDT Narrative [facility] - 11/07/2022 4:51 PM CDT HPV types 16, 18, 31, 33, 35, 39, 45, 51, 52, 56, 58, 59, 66 and 68 DNA were undetectable or below the pre-set threshold. Methodology: Bar Carolyn 4800 HPV Test Adrienne Davis NP MICROBIOLOGY [facility] [address] [place] [address], from Last 3 Months or Most Recently Relevant to Health Maintenance Care Teams Environmental Maintenance Worker Relationship Specialty Start Date End Date Pcp, No . PCP - General 11/17/21
== END 2024-02-13 14:24 | disposition home or self-care (01) ==
LOC: NFLDREF 14:23
PROVIDERS: PCP Internal Medicine; Visit Provider Internal Medicine
DX: E03.9 Hypothyroidism, unspecified (principal)
CPT/HCPCS: 84443

== ENCOUNTER 2024-04-06 15:45 | Outpatient (CLI) | payer OTHER, SELFPAY | END 2024-04-06 15:46 | disposition home or self-care (01) | PROVIDERS: PCP Internal Medicine; Visit Provider Family Medicine | DX: S09.90XA Unspecified injury of head, initial encounter (principal); S59.912A Unspecified injury of left forearm, initial encounter; V49.40XA Driver injured in collision with unspecified motor vehicles in traffic accident, initial encounter; Y92.410 Unspecified street and highway as the place of occurrence of the external cause | CPT/HCPCS: A0425; A0427 ==

== ENCOUNTER 2024-04-06 16:15 | Emergency (ER) | payer OTHER, SELFPAY ==
[2024-04-06] VITALS (27 sets, daily range): BP systolic 129–149; BP diastolic 81–118; PULSE 71–99; RESP 18–20; TEMP 37.1; O2SAT 96–100
--- OUTSIDE RECORDS SUMMARY | 2024-04-06 16:18 | XMS_ITS | Clinical Summary ---
Author Organization [facility] Address [address], [place] [address] Care Team Providers Care Fine Arts Teacher Name Role Phone Needs Pcp, Assignment Primary Care Provider [phone] Source Comments You are receiving this document as you are listed as the primary care provider,follow-up provider, or the patient has been referred to you for consultation.This is in compliance with the Medicare and[facility] E[facility] Incentive [facility],which states Providers who transition their patient to another setting of careor provider of care or refers their patient to another provider of care shouldprovide summary care record for each transition of care or referral. [employer] Allergies Active Allergy Reactions Criticality Noted Date [...] age to complete this topic Care Teams Fine Arts Teacher Relationship Specialty Start Date End Date Needs Pcp, [place] [address] PCP - General 09/19/21
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
[2024-04-06 17:02] LABS: Basophils Absolute Auto 0.01 K/uL (0.00-0.30); Basophils Percent Auto 0.1 % (0.0-3.0); Eosinophils Absolute Auto 0.22 K/uL (0.00-0.50); Eosinophils Percent Auto 2.8 % (0.0-7.0); Hematocrit 41.7 % (33.0-51.0); Hemoglobin* 13.4 gm/dL (12.0-16.0); Immature Granulocytes Abs Auto 0.01 K/uL (0.00-0.30); Immature Granulocytes Pct Auto 0.1 %; Lymphocytes Absolute Auto 2.35 K/uL (0.90-2.90); Lymphocytes Percent Auto 29.9 % (20-44); Mean Corpuscular HGB Conc 32 gm/dL (32-36); Mean Corpuscular Hemoglobin 27 pg (26-34); Mean Corpuscular Volume 84 fL (80-100); Monocytes Percent Auto 6.4 % (0.0-11.0); Neutrophils Absolute Auto 4.76 K/uL (1.7-7.0); Neutrophils Percent Auto 60.7 % (42.0-72.0); Platelet Count* 357 K/uL (140-440); Red Blood Count 4.98 m/uL (4.00-5.20); White Blood Count* 7.85 K/uL (4.50-11.00)
[2024-04-06] MEDS: ACETAMINOPHEN 500 MG TABLET 1000 MG PO (17:03)
[2024-04-06 17:10] LABS: Appearance Urine Clear (Clear); Bilirubin Urine Negative (Negative); Blood Urine 2+ (Negative); Color Urine Yellow (Yellow); Glucose Urine Negative (Negative); Ketones Urine Negative (Negative); Leukocyte Esterase Urine Negative (Negative); Nitrite Urine Negative (Negative); Protein Urine 3+ (Negative); Urobilinogen Urine 0.2 (0.2-1.0); pH Urine 5.5 (5.0-8.5)
[2024-04-06 17:16] LABS: Chloride* 103 mmol/L (96-114)
[2024-04-06 17:17] LABS: Potassium* 3.4 mmol/L (3.6-5.1); Sodium* 140 mmol/L (135-149)
[2024-04-06 17:19] LABS: Creatinine* 0.7 mg/dL (0.5-1.5); Estimated Glomerular Filt Rate 118 ml/min
[2024-04-06 17:20] LABS: Anion Gap 10 mEq/L (7-15); Blood Urea Nitrogen* 12 mg/dL (5-24); Calcium* 9.1 mg/dL (8.4-10.6); Carbon Dioxide* 27 mmol/L (20-32); Glucose* 97 mg/dL (60-115)
[2024-04-06 17:26] LABS: Slide Review Reflex No
[2024-04-06 17:27] LABS: Bacteria Urine Few; WBC Urine 0-2 (0-5)
--- OUTSIDE RECORDS SUMMARY | 2024-04-06 17:30 | XMS_ITS | Clinical Summary ---
Author Organization [facility] Address [address] [address] Care Team Providers Care Porter Marina Name Role Phone Needs Pcp, Assignment Primary Care Provider [phone] Source Comments You are receiving this document as you are listed as the primary care provider,follow-up provider, or the patient has been referred to you for consultation.This is in compliance with the Medicare and[facility] Incentive Program,which states Providers who transition their patient to another setting of careor provider of care or refers their patient to another provider of care shouldprovide summary care record for each transition of care or referral. [employer] Allergies Active Allergy Reactions Criticality Noted Date [...] age to complete this topic Care Teams Porter Marina Relationship Specialty Start Date End Date Needs Pcp, [place] [address] PCP - General 09/19/21
--- OUTSIDE RECORDS SUMMARY | 2024-04-06 17:30 | XMS_ITS | Clinical Summary ---
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 0 04/16/19 19 Active ondansetron (ZOFRAN ODT) 4 mg disintegrating tabletIndications: Nausea and vomiting, intractability of vomiting not specified, unspecified vomiting type Place 1 tablet on the tongue every 8 hours if needed for Nausea/Vomiting . 15 tablet 03/26/19 20 Active benzonatate (TESSALON) 100 mg capsuleIndications :Cough Take 1 capsule by mouth 3 times daily if needed for Cough. 15 capsule 03/26/19 20 Active albuterol (PROVENTIL) 0.083 % neb solution 04/13/19 20 Active levothyroxine (SYNTHROID) 50 mcg tablet 03/25/19 20 Active predniSONE (DELTASONE) 20 mg tablet TAKE 1 TABLET BY MOUTH TWICE A DAY FOR 5 DAYS AT START OF WHEEZING/EXACER BATION, REPEAT IF NEEDED 04/21/19 20 Active dextroamphetamine- amphetamine (ADDERALL XR) 20 mg Extended-Release capsule Take 20 mg by mouth once daily Active buPROPion (WELLBUTRIN XL) 150 mg Extended-Release tabletIndications: anxiety with depression Take 150 mg by mouth once daily. Indications: anxiousness associated with depression Active escitalopram oxalate (LEXAPRO) 20 mg tablet Take 20 mg by mouth once daily. 02/22/20 20 Active lidocaine, viscous, (XYLOCAINE) 2 % liquidIndications: Vaginal irritation Apply to area of irritation every 6 hours as needed for pain 100 mL 11/18/19 22 Active albuterol (PROVENTIL) 0.083 % neb solutionIndication s:Exacerbation of asthma, unspecified asthma severity, unspecified whether persistent Inhale 3 mL (2.5 mg) via a nebulizer three times daily. 90 mL 12/30/19 22 Active ondansetron (ZOFRAN ODT) 4 mg disintegrating tabletIndications: Excessive vomiting in Place 2 Tablets (8 mg) on the tongue every 8 hours if needed for Nausea/Vomiting . 30 Tablet 11/08/19 23 Active omeprazole (PRILOSEC) 20 mg Delayed-Release capsule Take 20 mg by mouth once daily. Active famotidine (PEPCID) 20 mg tablet Take 20 mg by mouth two times daily. 04/08/19 24 Active busPIRone 7.5 mg tablet Take 7.5 mg by mouth two times daily. 03/29/19 24 Active ipratropium (ATROVENT NASAL) 42 mcg (0.06 %) nasal sprayIndications:S inus congestion Inhale 2 Sprays to both nostrils three times daily. 15 mL 04/20/19 24 Active Active Problems Problem Noted Date Diagnosed [...] Recorded Sex Assigned at Not on file Legal Sex Female 8:31 AM CDT Gender Identity Not on file Sexual Orientation Not on file Obstetrics History Para Term AB IAB SAB Ectopic Multiple Livin g Live Births 2 1 1 Date Outcome GA Total Labor Labor/2nd/3rd Weight Sex Type Anes PTL Shira A1 A5 Name Clin SAB Current Last Filed Vital Signs Vital Sign Reading Time Taken Comments Blood Pressure 126/72 04/20/2023 10:52 AM WARRANTY ADMINISTRATOR Pulse 98 04/20/2023 10:52 AM WARRANTY ADMINISTRATOR Temperature 35.9 C (96.7 F) 04/20/2023 10:52 AM WARRANTY ADMINISTRATOR Respiratory Rate 16 04/20/2023 10:5 2 AM WARRANTY ADMINISTRATOR Oxygen Saturation 98% 04/20/2023 10: 52 AM WARRANTY ADMINISTRATOR Inhaled Oxygen Concentration - - Weight 92.9 kg (204 lb 11.2 oz) 024 10:52 AM WARRANTY ADMINISTRATOR Height 170.2 cm (5' 7) 11/07/2022 6:39 [...] age 18+ 12/28/2017 12/28/2016 COVID-19 vaccine series ( season) 2023 Influenza for age 9-49 11/10/2023 Pap test for age 21-65 10/31/2025 , 10/31/2022, 04/14/2018 RSV vaccine for adults or (1 - 1-dose 75+ series) 2067 Pneumococcal series for age 6-49 Aged Out No longer eligible b ased on patient's age to complete this topic Procedures Procedure Name Priority Date/Time Associated Diagnosis Comments HPV HIGH RISK Routine 10/31/2022 11:30 AM CDT from Last 3 Months or Most Recently Relevant to Health Maintenance Results * HPV HIGH RISK (10/31/2022 11:30 AM CDT) TYPE 16 Negative Negative 11/07/2022 4:51 PM CDT [facility] TYPE 18 Negative Negative 11/07/2022 4:51 PM CDT [facility] OTHER HIGH RISK TYPES Negative Negative 11/07/2022 4:51 PM CDT [facility] Other (Cervical) 10/31/2022 11:30 AM CDT 11/02/2022 1:58 PM CDT Narrative [facility] - 11/07/2022 4:51 PM CDT HPV types 16, 18, 31, 33, 35, 39, 45, 51, 52, 56, 58, 59, 66 and 68 DNA were undetectable or below the pre-set threshold. Methodology: Bar Carolyn 4800 HPV Test us Adrienne Davis NP MICROBIOLOGY Final Res ult [facility] [address] [place] [address], from Last 3 Months or Most Recently Relevant to Health Maintenance Insurance 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 PCP - General 11/17/21
== END 2024-04-06 18:42 | disposition home or self-care (01) ==
PROVIDERS: Emergency Provider Family Medicine; PCP Internal Medicine
DX: M79.632 Pain in left forearm (principal); M25.552 Pain in left hip; M25.562 Pain in left knee; M25.561 Pain in right knee; V43.02XA Car driver injured in collision with other type car in nontraffic accident, initial encounter
CPT/HCPCS: 36415; 71045; 73090; 73502; 73562; 80048; 81001; 85025; 87086; 94761; 99284; 99291; A9270; G0390

== ENCOUNTER 2024-07-09 14:27 | Outpatient (CLI) | payer BC, SELFPAY | END 2024-07-09 14:28 | disposition home or self-care (01) | LOC: NFLDREF 07-15 02:04 | PROVIDERS: PCP Internal Medicine; Referring Provider Internal Medicine; Visit Provider Advanced Practice Midwife | DX: R35.0 Frequency of micturition (principal) | CPT/HCPCS: 87086 ==

== ENCOUNTER 2024-07-26 15:54 | Emergency (ER) | payer BC, SELFPAY ==
[2024-07-26 16:05] VITALS: BP 133/78; PULSE 82; RESP 20; TEMP 37.1; O2SAT 98; BMI 32.6
--- NOTE | 2024-07-26 16:42 | ED_ITS ---
HPI - General Adult General Date Seen: 07/26/24 Chief complaint: Abdominal Pain Stated complaint: L abd. pain Time Seen by Provider: 07/26/24 16:39 History of Present Illness HPI narrative: 34 yo F Referred to the ER today from the urgent care for evaluation of abd pain. she has a history of 1 previous and previous bowel obstruction requiring surgery in 2016. She has a past medical history of GERD, ureteral duplication (but does not have history of complications such as kidney stones or kidney infections), low vitamin-D, hypothyroidism, history of gestational diabetes, anxiety/depression. She started developing pain in her left mid and left upper quadrant about 4 days ago on . He was initially fairly mild and fairly intermittent. 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 However the for the last 2 days pain has been getting a little bit more uncomfortable and a little bit more persistent. No other symptoms. Mild nausea. No vomiting. No fever. Normal bowel movements. Normal urination. She did miss her menstrual cycle in June but had a heavy menstrual cycle last week on July 16 to but otherwise min so he says been normal. No vaginal discharge. She notes that she had some vaginal itching a couple months ago and had a workup to the clinic with a normal urinalysis and negative wet prep. Related Data Home Medications ?Medication ?Instructions ?Recorded ?Confirmed ondansetron HCl 4 mg tablet 4 mg PO Q8H 07/09/24 07/26/24 vits 75-iron 28 mg-folic pkg PO 07/09/24 07/26/24 acid 800 mcg-omega3 440 mg oral pack (One Daily ) elderberry fruit 350 mg capsule mg PO 07/26/24 07/26/24 Previous Rx's ?Medication ?Instructions ?Recorded epinephrine 0.3 mg/0.3 mL 0.3 mg (0.3 mL) IM .As Needed as 06/06/22 injection, auto-injector needed PRN anaphylaxis #2 ea albuterol sulfate 90 mcg/actuation 2 inh inhalation Q4H PRN shortness 05/03/24 aerosol inhaler of breath or wheezing #6.7 grams albuterol sulfate 2.5 mg/3 mL 2.5 mg (3 mL) continuous 05/07/24 (0.083 %) solution for nebulization nebulization Q6-8H PRN shortness of breath or wheezing #90 mL levothyroxine 50 mcg tablet 50 mcg PO DAILY #90 tabs 05/08/24 Allergies Allergy/AdvReac Type Severity Reaction Status Date / Time pineapple Allergy Severe Anaphylaxis Verified 07/26/24 16:04 metoclopramide Allergy Intermediate Jittery Verified 07/26/24 16:04 and anxious Sulfa (Sulfonamide Allergy Intermediate Vomiting Verified 07/26/24 16:04 Antibiotics) latex Allergy Mild Unknown Verified 07/26/24 16:04 [facility] Medical History Urinary frequency ?R35.0 - Frequency of micturition (ICD-10) Hair loss ?L65.9 - Nonscarring hair loss, unspecified (ICD-10) COVID-19 ?U07.1 - COVID-19 (ICD-10) Low lying placenta nos or without hemorrhage, third trimester ?O44.43 - Low lying placenta NOS or without hemorrhage, third trimester (ICD- 10) Low vitamin D level ?R79.89 - Other specified abnormal findings of blood chemistry (ICD-10) Intussusception of intestine ?K56.1 - Intussusception (ICD-10) Hypothyroidism ?E03.9 - Hypothyroidism, unspecified (ICD-10) 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 (ICD-10) GERD (gastroesophageal reflux disease) ?K21.9 - Gastro-esophageal reflux disease without esophagitis (ICD-10) Gestational diabetes ?O24.419 - Gestational diabetes mellitus in , unspecified control (ICD-10) Hemorrhage in early ?O20.9 - Hemorrhage in early , unspecified (ICD-10) Surgical History H/O eye surgery ?Z98.890 - Other specified postprocedural states (ICD-10) History of endoscopy ?Z98.890 - Other specified postprocedural states (ICD-10) History of colonoscopy ?Z98.890 - Other specified postprocedural states (ICD-10) History of abdominal surgery ?Z98.890 - Other specified postprocedural states (ICD-10) Family History Other Heart disease Mental disorder Seizures Type 2 diabetes mellitus Social History (System 05/20/24 @ 15:19 by Gurdeep Deng) Narrative: , Non-smoker, financial service rep at [employer] What is your current living situation?: I presently have a place to live Problems where you live: no known problems In the past 12 months, utilities in danger of being shut off: no In past 12 months, lack of transportation kept you from medical appts, meetings, work, or getting things needed for daily living: no In the past 12 mos, have been you worried that your food would run out before you had money to buy more?: never true In the past 12 mos, the food you bought just didn't last and you didn't have money to buy more?: never true Smoking Status: Never smoker Do you use any of these nicotine containing products: None Second hand tobacco smoke exposure: No How often do you have a drink containing alcohol: never How many standard drinks containing alcohol do you have on a typical day: 1 or 2 How often do you have six or more drinks on one occasion: Never AUDIT-C Alcohol total score: 0 Non-prescribed substance use: denies use Caffeine: Yes (soda energy drinks) How often does anyone, including family, friends and others, physically hurt you : never How often does anyone, including family, friends and others, insult or talk down to you: never How often does anyone, including family, friends and others, threaten you with harm: never How often does anyone, including family, friends and others, scream or curse at you: never Are you using contraception or practicing any form of control: No service: No Exam Narrative: Exam Narrative: Constitutional: Appears well-developed and well-nourished. Alert. Conversant. Non toxic. HENT: Head: Atraumatic. Nose: Nose normal. Mouth/Throat: Oral mucosa is clear and moist. no trismus. Pharynx normal Eyes: Conjunctivae normal. EOM normal. Pupils equal, round, and reactive to light. No scleral icterus. Neck: Normal range of motion. Neck supple. No tracheal deviation present. Cardiovascular: Normal rate, regular rhythm. No gallop. No friction rub. No murmur heard. Symmetric radial artery pulses Pulmonary/Chest: Effort normal. No stridor. No respiratory distress. No wheezes. No rales. No rhonchi . No tenderness. Abdominal: Soft. Bowel sounds normal. No distension. No mass. Left upper quadrant> left flank and left lower quad tenderness. No right-sided tenderness. No rebound. No guarding. Musculoskeletal: RUE: Normal range of motion. No tenderness. No deformity LUE: Normal range of motion. No tenderness. No deformity RLE: Normal range of motion. No edema. No tenderness. No deformity LLE: Normal range of motion. No edema. No tenderness. No deformity Neurological: Alert and oriented to person, place, and time. Normal strength. CN II-VII intact. No sensory deficit. GCS eye subscore is 4. GCS verbal subscore is 5. GCS motor subscore is 6. Normal coordination Skin: Skin is warm and dry. No rash noted. No pallor. Normal capillary refill. Psychiatric: Normal mood. Normal affect. Const: Vital Signs, click to edit/add: Vital Signs - 24 hr 07/26/24 16:05 07/26/24 18:22 Temperature 98.7 F 97.9 F Pulse Rate [Pulse Oximeter] 82 72 Respiratory Rate 20 18 Blood Pressure [Ri ght Upper Arm] 133/78 128/63 Pulse Oximetry 98 96 Oxygen Delivery Me thod Room Air Room Air Course Course ED Course: Recheck-doing well. Still declines need for pain meds. Discussed results with the patient and with her by cell phone. Vital Signs Vital signs: Initial Vital Signs Temperature 98.7 F 07/26/24 16:05 Temperature Source Temporal Artery Scan 07/26/24 16:05 Pulse Rate 82 07/26/24 16:05 Respiratory Rate 20 07/26/24 16:05 Blood Pressure 133/78 07/26/24 16:05 Blood Pressure Mean 96 07/26/24 16:05 Pulse Oximetry 98 07/26/24 16:05 Oxygen Delivery Method Room Air 07/26/24 16:05 Vital Signs Temperature 98.7 F 07/26/24 16:05 Pulse Rate 82 07/26/24 16:05 Respiratory Rate 20 07/26/24 16:05 Blood Pressure 133/78 07/26/24 16:05 Pulse Oximetry 98 07/26/24 16:05 Oxygen Delivery Method Room Air 07/26/24 16:05 Temperature 97.9 F 07/26/24 18:22 Pulse Rate 72 07/26/24 18:22 Respiratory Rate 18 07/26/24 18:22 Blood Pressure 128/63 07/26/24 18:22 Pulse Oximetry 96 07/26/24 18:22 Oxygen Delivery Method Room Air 07/26/24 18:22 Medical Decision Making MDM Narrative Medical decision making narrative: Presented to the Emergency Department with left mid and left upper quadrant abdominal pain. The differential diagnosis of abdominal pain includes: Appendicitis, Bowel Obstruction, Ulcer, Ischemia, Cholecystitis, Diverticulitis, Pancreatitis, UTI, kidney stone, Enteritis/Colitis, amongst many other etiologies. Laboratory testing does not reveal a cause for the patient's pain. 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 No sign of any other acute surgical emergency. Reviewed mesenteric panniculitis by phone with our on-call general surgeon, Dr. Jeter. She agrees with me that this point no surgical intervention is indicated. Supportive care, rest, clear liquid and light diet. Anti-inflammatory such as NSAIDs to reduce inflammation. No life threatening cause or need for emergent surgery or hospital admission is detected today. The patient was advised that if symptoms do not completely resolve within another 12-24 hours re-evaluation with primary care or return to the ED is indicated. The patient also understands that if they worsen, they should return to the ER right away. I discussed the uncertainty about the diagnosis and answered the patient's questions. Abdominal pain return precautions discussed. Need for follow-up with the patient's primary care or with her team at [facility] within the next 24-48 hours reviewed. Patient questions whether not mesenteric panniculitis could have been contributing to her more long-term abdominal pains. At this point I think the answer is unclear. If this were chronic condition at likely would have been detected on 1 of her previous imaging studies. However would recommend follow up with her team for further consideration. Lab Data Labs: Lab Results 07/26/24 07/26/24 Range/Units 16:59 17:20 WBC 7.84 (4.50-11.00) K/uL RBC 5.11 (4.00-5.20) m/uL Hgb 14.0 (12.0-16.0) gm/dL Hct 42.9 (33.0-51.0) % MCV 84 (80-100) fL MCH 27 (26-34) pg MCHC 33 (32-36) gm/dL RDW Coeff of [place] 13.5 (11.5-15.5) % Plt Count 344 (140-440) K/uL Neut % (Auto) 65.5 (42.0-72.0) % Lymph % (Auto) 25.0 (20-44) % Cowley % (Auto) 7.5 (0.0-11.0) % Eos % (Auto) 1.8 (0.0-7.0) % Baso % (Auto) 0.1 (0.0-3.0) % Neut # (Auto) 5.13 (1.7-7.0) K/uL Lymph # (Auto) 1.96 (0.90-2.90) K/uL Cowley # (Auto) 0.60 (0.00-0.90) K/UL Eos # (Auto) 0.14 (0.00-0.50) K/uL Baso # (Auto) 0.01 (0.00-0.30) K/uL Abs Immat Gran (auto) 0.01 (0.00-0.30) K/uL Imm/Tot Granulo (auto) 0.1 % Sodium 140 (135-149) mmol/L Potassium 3.9 (3.6-5.1) mmol/L Chloride 100 (96-114) mmol/L Carbon Dioxide 31 (20-32) mmol/L Anion Gap 9 (7-15) mEq/L BUN 14 (5-24) mg/dL Creatinine 0.7 (0.5-1.5) mg/dL Estimated Creat Clear 112.20 Estimated GFR 118 ml/min Glucose 96 (60-115) mg/dL Calcium 9.1 (8.4-10.6) mg/dL Total Bilirubin 0.5 (0.1-1.5) mg/dL AST 23 (12-35) U/L ALT 17 (4-35) U/L Alkaline Phosphatase 65 (40-150) U/L Total Protein 7.7 (6.0-8.3) g/dL Albumin 4.5 (3.3-5.0) g/dL Lipase 102 (23-300) U/L Urine Color Yellow (Yellow) Urine Appearance Clear (Clear) Urine pH 7.0 (5.0-8.5) Ur Specific [place] 1.020 (1.000-1.030) Urine Protein Trace A (Negative) Urine Glucose (UA) Negative (Negative) Urine Ketones Negative (Negative) Urine Blood Negative (Negative) Urine Nitrite Negative (Negative) Urine Bilirubin Negative (Negative) Urine Urobilinogen 0.2 (0.2-1.0) Ur Leukocyte Esterase Negative (Negative) Urine RBC 0-2 (0-2) Urine WBC 0-2 (0-5) Urine WBC Clumps None (None) Ur Squamous Epith Cells Moderate A (None-Few) Urine Bacteria None (None) Urine HCG, Qual Negative (Negative) Imaging Data CT scan - abdomen: Attestation: I have reviewed the pertinent imaging results. Radiologist's impression: FINDINGS: Lower chest: Unremarkable. Liver: Unremarkable. Gallbladder and bile ducts: Unremarkable. No biliary dilatation. Spleen: Unremarkable. Pancreas: Unremarkable. Adrenal glands: Unremarkable. 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 No hydronephrosis or ureteral dilation. No obstructing urinary calculi identified. No bladder wall thickening. Reproductive organs: Unremarkable noncontrast appearance. GI tract/Peritoneum: Large amount of food material in the stomach. No small bowel dilation. Formed stool in the ascending colon. The remainder of the colon is mostly decompressed. Negative appendix. No intraperitoneal free air or fluid. Surgical clips in the left abdomen. Vasculature: Abdominal aorta is normal in caliber. Lymph nodes: There is increased attenuation of the central mesentery with multiple prominent mesenteric lymph nodes. 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 No lymphadenopathy by size criteria. Abdominal Wall: Scarring in the anterior abdominal wall. Bones: Stable minimal retrolisthesis of L5 on S1. IMPRESSION: 1. Findings suggestive of mesenteric panniculitis which could potentially be a source of discomfort. 2. No other acute findings in the abdomen or pelvis on this noncontrast exam. No hydronephrosis or obstructing urinary calculi. Discharge Plan Discharge Clinical Impression: Mesenteric panniculitis Patient Disposition: Home, Self-Care Condition: Stable Additional Instructions: As we discussed, your CT scan today shows a condition called ?mesenteric panniculitis) this is inflammation of the part of her body that attaches your intestines to your abdomen. This condition usually gets better on its own and almost never require surgery or hospitalization. Usually we can treat this with anti-inflammatory such as ibuprofen (600 mg 3 times daily as needed). However, I want you to monitor your condition carefully and follow-up with your regular doctor or your team at [facility] within the next 2-3 days. In the meantime, if you have any concerns such as worsening pain, uncontrolled pain, fever, or other worsening symptoms please come back to the emergency room right away. Also please follow-up with your doctors from [facility] to review your current CT findings. Asked your doctors whether not they think this could have anything to do with her more long-term abdominal pains. Prescriptions: No Action albuterol sulfate 90 mcg/actuation HFA aerosol inhaler 2 inh inhalation Q4H PRN (Reason: shortness of breath or wheezing) Qty: 6.7 0RF ondansetron HCl 4 mg tablet 4 mg PO Q8H One Daily 28-800-440 mg-mcg-mg combo pack PO elderberry fruit 350 mg capsule PO epinephrine 0.3 mg/0.3 mL auto-injector 0.3 mg IM .As Needed as needed PRN (Reason: anaphylaxis) Qty: 2 1RF albuterol sulfate 2.5 mg /3 mL (0.083 %) solution for nebulization 2.5 mg continuous nebulization Q6-8H PRN (Reason: shortness of breath or wheezing) Qty: 90 3RF levothyroxine 50 mcg tablet 50 mcg PO DAILY Qty: 90 2RF Follow Up/Referrals: Bk Mcclellan MD [Primary Care Provider] - Stand Alone Forms: [employer] Info Instructions
--- NOTE | 2024-07-26 16:57 | CRLHL7_ITS ---
For Patients: As a result of the Century Cures Act, medical imaging exams and procedure reports are released immediately into your electronic medical record. You may view this report before your referring provider. If you have questions, please contact your health care provider. INDICATION: Left upper quadrant and left flank pain. TECHNIQUE: CT of the abdomen and pelvis without IV contrast. Coronal and sagittal reconstructions. COMPARISON: CT of the abdomen and pelvis 04/24/2021. FINDINGS: Lower chest: Unremarkable. Liver: Unremarkable. Gallbladder and bile ducts: Unremarkable. No biliary dilatation. Spleen: Unremarkable. Pancreas: Unremarkable. Adrenal glands: Unremarkable. 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 No hydronephrosis or ureteral dilation. No obstructing urinary calculi identified. No bladder wall thickening. Reproductive organs: Unremarkable noncontrast appearance. GI tract/Peritoneum: Large amount of food material in the stomach. No small bowel dilation. Formed stool in the ascending colon. The remainder of the colon is mostly decompressed. Negative appendix. No intraperitoneal free air or fluid. Surgical clips in the left abdomen. Vasculature: Abdominal aorta is normal in caliber. Lymph nodes: There is increased attenuation of the central mesentery with multiple prominent mesenteric lymph nodes. 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 No lymphadenopathy by size criteria. Abdominal Wall: Scarring in the anterior abdominal wall. Bones: Stable minimal retrolisthesis of L5 on S1. IMPRESSION: 1. Findings suggestive of mesenteric panniculitis which could potentially be a source of discomfort. 2. No other acute findings in the abdomen or pelvis on this noncontrast exam. No hydronephrosis or obstructing urinary calculi. Please note that all CT scans at this facility use dose modulation, iterative reconstruction, and/or weight-based dosing when appropriate to reduce radiation dose to as low as reasonably achievable. Dictated by Griselda Bernabe MD @ 07/26/2024 6:59:30 PM (Electronically Signed)
[2024-07-26 17:12] LABS: Appearance Urine Clear (Clear); Bilirubin Urine Negative (Negative); Blood Urine Negative (Negative); Color Urine Yellow (Yellow); Glucose Urine Negative (Negative); Ketones Urine Negative (Negative); Leukocyte Esterase Urine Negative (Negative); Nitrite Urine Negative (Negative); Protein Urine Trace (Negative); Urobilinogen Urine 0.2 (0.2-1.0)
[2024-07-26 17:27] LABS: Basophils Absolute Auto 0.01 K/uL (0.00-0.30); Basophils Percent Auto 0.1 % (0.0-3.0); Eosinophils Absolute Auto 0.14 K/uL (0.00-0.50); Eosinophils Percent Auto 1.8 % (0.0-7.0); Hematocrit 42.9 % (33.0-51.0); Immature Granulocytes Abs Auto 0.01 K/uL (0.00-0.30); Immature Granulocytes Pct Auto 0.1 %; Lymphocytes Absolute Auto 1.96 K/uL (0.90-2.90); Mean Corpuscular HGB Conc 33 gm/dL (32-36); Mean Corpuscular Hemoglobin 27 pg (26-34); Mean Corpuscular Volume 84 fL (80-100); Monocytes Percent Auto 7.5 % (0.0-11.0); Neutrophils Absolute Auto 5.13 K/uL (1.7-7.0); Neutrophils Percent Auto 65.5 % (42.0-72.0); Platelet Count* 344 K/uL (140-440); RDW Coefficient of Variation % 13.5 % (11.5-15.5); Red Blood Count 5.11 m/uL (4.00-5.20); White Blood Count* 7.84 K/uL (4.50-11.00)
[2024-07-26 17:29] LABS: Slide Review Reflex No
[2024-07-26 17:33] LABS: RBC Urine 0-2 (0-2); WBC Urine 0-2 (0-5)
[2024-07-26 17:34] LABS: Squamous Epithelial Cell Urine Moderate (None-Few)
[2024-07-26 17:39] LABS: Albumin* 4.5 g/dL (3.3-5.0); Chloride* 100 mmol/L (96-114); Potassium* 3.9 mmol/L (3.6-5.1); Sodium* 140 mmol/L (135-149)
[2024-07-26 17:40] LABS: Ur HCG Qualitative* Negative (Negative)
[2024-07-26 17:42] LABS: Alanine Aminotransferase* 17 U/L (4-35); Alkaline Phosphatase* 65 U/L (40-150); Anion Gap 9 mEq/L (7-15); Aspartate Amino Transferase* 23 U/L (12-35); Bilirubin Total* 0.5 mg/dL (0.1-1.5); Blood Urea Nitrogen* 14 mg/dL (5-24); Calcium* 9.1 mg/dL (8.4-10.6); Carbon Dioxide* 31 mmol/L (20-32); Creatinine* 0.7 mg/dL (0.5-1.5); Estimated Glomerular Filt Rate 118 ml/min; Glucose* 96 mg/dL (60-115); Lipase* 102 U/L (23-300); Total Protein* 7.7 g/dL (6.0-8.3)
--- OUTSIDE RECORDS SUMMARY | 2024-07-26 17:57 | XMS_ITS | Clinical Summary ---
Author Organization [facility] Address [address] [place] [id number] Care Team Providers Care Kst Operator Name Role Phone Pcp, No Primary Care Provider Unavailabl e Allergies Active Allergy Reactions Criticality Noted Date Comments Morphine Hives 12/28/2016 Pineapple Anaphylaxis High 12/28/2016 Metoclopramide Hcl Anxiety 12/28/2016 Sulfa (Sulfonamide Antibiotics) Vomiting 12/28/2016 Other reaction(s): GI intolerance Medications [id number] 6-dha 30 mg iron-1mg -200 mg cap [...] asthma, unspecified asthma severity, unspecified whether persistent (HC) Inhale 3 mL (2.5 mg) via a nebulizer three times daily. 90 mL 12/30/19 22 Active ondansetron (ZOFRAN ODT) 4 mg disintegrating tabletIndications: Excessive vomiting in (HC) Place 2 Tablets (8 mg) on the [...] recommend gastric emptying study if symptoms persist Social History Tobacco Use Types Packs/Day Years Used Date Smoking Tobacco: Never Cigarettes Smokeless Tobacco: Never Tobacco Cessation:Counseling Given: Yes Alcohol Use Standard Drinks/Week Comments Yes 0 (1 standard drink = 0.6 oz pur e alcohol) rare Social Connections Answer Date Recorded Do you often feel lonely or isolated from those around you? 0 04/20/2023 Financial Resource Strain Answer Date R ecorded Difficulty of Paying Living Expenses 3 04/11/2024 Difficulty of Paying Living Expenses Not on file 04/11/2024 Food Insecurity Answer Date Recorded Do you worry your food will run out before you are able to buy more? 1 04/20/2023 Transportation Needs Answer Date Record ed Does lack of transportation keep you from medica l appointments? 1 04/20/2023 Does lack of transportation keep you from work, meetings or getting things that you need? 1 04/20/2023 Housing Stability Answer Date Recorded What is your housing situation today? 1 04/20/2023 Utilities Answer Date Recorded Do you have trouble paying f or utilities (for example, heat, electricity, water, phone)? 1 04/20/2023 Comments Unknown Sex and Gender Information Value Date Recorded Sex Assigned at Not on file Legal Sex Female 8:31 AM CDT Gender Identity Not on file Sexual Orientation Not on file Obstetrics History Para Term AB IAB SAB Ectopic Multiple Livin g Live Births 2 1 1 Date Outcome GA Total Labor Labor/2nd/3rd Weight Sex Type Anes PTL Shira A1 A5 Name Clin SAB Last Filed Vital Signs Vital Sign Reading Time Taken Comments Blood Pressure 126/72 04/20/2023 10:52 AM [facility] Pulse 98 04/20/2023 10:52 AM [facility] Temperature 35.9 C (96.7 F) 04/20/2023 10:52 AM [facility] Respiratory Rate 16 04/20/2023 10:5 2 AM [facility] Oxygen Saturation 98% 04/20/2023 10: 52 AM [facility] Inhaled Oxygen Concentration - - Weight 92.9 kg (204 lb 11.2 oz) 024 10:52 AM [facility] Height 170.2 cm (5' 7) 11/07/2022 6:39 [...] COVID-19 vaccine series ( season) 2023 Influenza Vaccine (Season Ended) 2024 Pap test for age 21-65 10/31/2025 , 10/31/2022, 04/14/2018 Pneumococcal series for age 6-49 Aged Out No longer eligible b ased on patient's age to complete this topic Procedures Procedure Name Priority Date/Time Associated Diagnosis Comments HPV HIGH RISK Routine 10/31/2022 11:30 AM CDT from Last 3 Months or Most Recently Relevant to Health Maintenance Results * HPV HIGH RISK (10/31/2022 11:30 AM CDT) TYPE 16 Negative Negative 11/07/2022 4:51 PM CDT [facility] TYPE 18 Negative Negative 11/07/2022 4:51 PM CDT [facility] OTHER HIGH RISK TYPES Negative Negative 11/07/2022 4:51 PM CDT [facility] Other (Cervical) 10/31/2022 11:30 AM CDT 11/02/2022 1:58 PM CDT Narrative [facility] - 11/07/2022 4:51 PM CDT HPV types 16, 18, 31, 33, 35, 39, 45, 51, 52, 56, 58, 59, 66 and 68 DNA were undetectable or below the pre-set threshold. Methodology: Bar Carolyn 4800 HPV Test us Adrienne Davis NP MICROBIOLOGY Final Res ult [facility] [address] [place] [address], [place] from Last 3 Months or Most Recently Relevant to Health Maintenance Insurance [employer] WC WORKERS COMP WC WORKERS COMP [address] [facility] KENNY BARBOZA [id number] WC WORKERS COMP KENNY BAR[place]ZA [id number] WC [employer] [place] [facility] [place] [address] Care Teams Kst Operator Relationship Specialty Start Date End Date Pcp, No . PCP - General 11/17/21
--- OUTSIDE RECORDS SUMMARY | 2024-07-26 17:57 | XMS_ITS | Clinical Summary ---
Author Organization [facility] Address [address], [place] [address] Care Team Providers Care Sap Technical Developer Name Role Phone Needs Pcp, Assignment Primary Care Provider [phone] Source Comments You are receiving this document as you are listed as the primary care provider,follow-up provider, or the patient has been referred to you for consultation.This is in compliance with the Medicare and[facility] E[facility] Incentive Program,which states Providers who transition their patient to another setting of careor provider of care or refers their patient to another provider of care shouldprovide summary care record for each transition of care or referral. [email or web address] Allergies Active Allergy Reactions Criticality Noted Date Comments Metoclopramide Other, see comments 09/19/2021 Restless legs Sulfa Antibiotics Hives High 09/19/2021 Medications buPROPion (WELLBUTRIN XL) 150 MG 24 hour release tablet Take 300 mg by mouth daily. 08/23/2021 Active levothyroxine (SYNTHROID) 50 MCG tablet Take 1 Tablet (50 mcg) by mouth daily. 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 Gender Identity Not on file Sexual Orientation [...] Services) 2008 Adult Preventive Visit 2010 HepB Vaccine (1) 2011 COVID-19 Vaccine (1 - 2023-2 5 season) 2023 Influenza Vaccine (Season Ended) 2024 04/21/2019, 04/15/2018, 03/28/2017 DTaP/Tdap/Td Vaccine (2 - Tdap) 04/15/2028 04/15/2018 Zoster/Shingles Vaccine (1 o f 2) 2042 Pneumococcal Vaccine Aged Out 04/15/2018 No long er eligible based on patient's age to complete this topic HPV Vaccine Aged Out No longer eligi ble based on patient's age to complete this topic HepA Vaccine Aged Out No longer eligi ble based on patient's age to complete this topic Hib Vaccine Aged Out No longer eligi ble based on patient's age to complete this topic IPV (Polio) Vaccine Aged Out No longe r eligible based on patient's age to complete this topic MCV4 Vaccine Aged Out No longer eligi ble based on patient's age to complete this topic Meningococcal B Vaccine Aged Out No l onger eligible based on patient's age to complete this topic Insurance [facility] Care Teams Sap Technical Developer Relationship Specialty Start Date End [place] [address] PCP - General 09/19/21
[2024-07-26 18:22] VITALS: BP 128/63; PULSE 72; RESP 18; TEMP 36.6; O2SAT 96
--- NOTE | 2024-07-28 12:46 | ED.NURSE ---
Prescription changed to 5 days due to pharmacy intervention.
== END 2024-07-26 20:19 | disposition home or self-care (01) ==
PROVIDERS: Emergency Provider Emergency Medicine; PCP Internal Medicine
DX: K65.4 Sclerosing mesenteritis (principal); R10.9 Unspecified abdominal pain; N91.2 Amenorrhea, unspecified
CPT/HCPCS: 36415; 74176; 80053; 81001; 81025; 83690; 85025; 99283; 99284

== ENCOUNTER 2024-08-18 20:07 | Emergency (ER) | payer BC, SELFPAY ==
--- OUTSIDE RECORDS SUMMARY | 2024-08-18 20:10 | XMS_ITS | Clinical Summary ---
Author Organization [facility] Address [address] [place] [id number] Care Team Providers Care Book Coverer Name Role Phone Pcp, No Primary Care Provider Unavailabl e Allergies Active Allergy Reactions Criticality Noted Date Comments Morphine Hives 12/28/2016 Pineapple Anaphylaxis High 12/28/2016 Metoclopramide Hcl Anxiety 12/28/2016 Sulfa (Sulfonamide Antibiotics) Vomiting 12/28/2016 Other reaction(s): GI intolerance Medications 29-[id number] 6-dha 30 mg iron-1mg -200 mg cap [...] Comments Blood Pressure 126/72 04/20/2023 10:52 AM POOL TECHNICIAN Pulse 98 04/20/2023 10:52 AM POOL TECHNICIAN Temperature 35.9 C (96.7 F) 04/20/2023 10:52 AM POOL TECHNICIAN Respiratory Rate 16 04/20/2023 10:5 2 AM POOL TECHNICIAN Oxygen Saturation 98% 04/20/2023 10: 52 AM POOL TECHNICIAN Inhaled Oxygen Concentration - - Weight 92.9 kg (204 lb 11.2 oz) 024 10:52 AM POOL TECHNICIAN Height 170.2 cm (5' 7) 11/07/2022 6:39 AM CDT Body Mass Index 32.06 11/07/2022 6:39 AM CDT Plan of Treatment Health Maintenance Due Date Last Done Comments Tdap 2003 Depression screening for age 12+ 2004 HIV for age 15-65 2007 Hepatitis C screening for ag e 18-79 2010 Hepatitis B series for 19+ ( 1 of 3 - 19+ 3-dose series) 2011 Tetanus booster 2012 BMI (ht and wt [...] 16 Negative Negative 11/07/2022 4:51 PM CDT [facility] TYPE 18 Negative Negative 11/07/2022 4:51 PM CDT [facility] OTHER HIGH RISK TYPES Negative Negative 11/07/2022 4:51 PM CDT [facility] Other (Cervical) 10/31/2022 11:30 AM CDT 11/02/2022 1:[address] [facility] - 11/07/2022 4:51 PM CDT HPV types 16, 18, 31, 33, 35, 39, 45, 51, 52, 56, 58, 59, 66 and 68 DNA were undetectable or below the pre-set threshold. Methodology: Bar Carolyn 4800 HPV Test us Adrienne Davis NP MICROBIOLOGY Final Res ult [facility] [address] [place] [address], from Last 3 Months or Most Recently Relevant to Health Maintenance [place] [address] [place] [address] [place] WORK[place] COMP WORKERS COMP WORKERS COMP [employer] [place] Care Teams Book Coverer Relationship Specialty Start Date End Date Pcp, No . PCP - General 11/17/21
--- OUTSIDE RECORDS SUMMARY | 2024-08-18 20:10 | XMS_ITS | Clinical Summary ---
Author Organization [facility] Address [address] [address] Care Team Providers Care Chronic Care Nurse Name Role Phone Needs Pcp, Assignment Primary Care Provider [phone] Source Comments You are receiving this document as you are listed as the primary care provider,follow-up provider, or the patient has been referred to you for consultation.This is in compliance with the Medicare and[facility] E[facility] Incentive Program,which states Providers who transition their patient to another setting of careor provider of care or refers their patient to another provider of care shouldprovide summary care record for each transition of care or referral. 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
[2024-08-18 20:21] VITALS: BP 131/84; PULSE 93; RESP 18; TEMP 37; O2SAT 98; BMI 31.3
--- NOTE | 2024-08-18 20:55 | ED_ITS ---
HPI - General Adult General Chief complaint: Abdominal Pain Stated complaint: 4-5 weeks preg. sharp pains in stomach Time Seen by Provider: 08/18/24 20:55 History of Present Illness HPI narrative: Pt reports sharp pain to the left abd. pt reports being 4-5 weeks . positive home pregnany test . 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 clinic recommended she come to ED for possible ectopic . pain started at today 1800, consistent sharp pain, unable to get relief with positioning. 34-year-old woman presenting to the emergency department with concern of sharp pain in left lower abdomen. Pain started this evening. She does can not seem to get comfortable. No dysuria reported. No hematuria. She did have a home test 5 days ago. LMP was 07/16/2024. Would be with 2 miscarriages Mentions that was seen on 07/26 here in the emergency department and diagnosed with mesenteric panniculitis. Looks like was treated with Zofran and ketorolac. Alarming was the abrupt onset. With this new pain with recommended by triage to present to the emergency department. Concern of ectopic. Has been experiencing diarrhea over the last 2 days. Related Data Home Medications ?Medication ?Instructions ?Recorded ?Confirmed ondansetron HCl 4 mg tablet 4 mg PO Q8H 07/09/2407/28 vits 75-iron 28 mg-folic pkg PO 07/09/2407/10 acid 800 mcg-omega3 440 mg oral pack (One Daily ) elderberry fruit 350 mg capsule mg PO 07/26/24 5 Previous Rx's ?Medication ?Instructions ?Recorded epinephrine 0.3 mg/0.3 mL 0.3 mg (0.3 mL) IM .As Neede d as 06/06/22 injection, auto-injector needed PRN anaphylaxis #2 ea albuterol sulfate 90 mcg/actuation 2 inh inhalation Q4 H PRN shortness 05/03/24 aerosol inhaler of breath or wheezing #6.7 g gabbie albuterol sulfate 2.5 mg/3 mL 2.5 mg (3 mL) continuous 05/07/24 (0.083 %) solution for nebulization nebulization Q6-8H PRN shortness of breath or wheezing #90 mL levothyroxine 50 mcg tablet 50 mcg PO DAILY #90 tabs 0 05/08/24 ketorolac 10 mg tablet 10 mg PO Q8H PRN pain #15 ta bs 08/04/24 Allergies Allergy/AdvReac Type Severity Reaction Status Date / Time pineapple Allergy Severe Anaphylaxis Verified 07/28/24 10:34 metoclopramide Allergy Intermediate Jittery Verified 07/28/24 10:34 and anxious Sulfa (Sulfonamide Allergy Intermediate Vomiting Verified 07/28/24 10:34 Antibiotics) latex Allergy Mild Unknown Verified 07/28/24 10:34 Review of Systems Status of ROS: Reports: 6 or more systems reviewed and unremarkable except as noted in History and below [facility] Medical History Urinary frequency ?R35.0 - Frequency of micturition (ICD-10) Hair loss ?L65.9 - Nonscarring hair loss, unspecified (ICD-10) COVID-19 ?U07.1 - COVID-19 (ICD-10) Low lying placenta nos or without hemorrhage, third trimester ?O44.43 - Low lying placenta NOS or without hemorrhage, third trimester (ICD- 10) Low vitamin D level ?R79.89 - Other specified abnormal findings of blood chemistry (ICD-10) Intussusception of intestine ?K56.1 - Intussusception (ICD-10) Hypothyroidism ?E03.9 - Hypothyroidism, unspecified (ICD-10) 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 (ICD-10) GERD (gastroesophageal reflux disease) ?K21.9 - Gastro-esophageal reflux disease without esophagitis (ICD-10) Gestational diabetes ?O24.419 - Gestational diabetes mellitus in , unspecified control (ICD-10) Hemorrhage in early ?O20.9 - Hemorrhage in early , unspecified (ICD-10) Surgical History H/O eye surgery ?Z98.890 - Other specified postprocedural states (ICD-10) History of endoscopy ?Z98.890 - Other specified postprocedural states (ICD-10) History of colonoscopy ?Z98.890 - Other specified postprocedural states (ICD-10) History of abdominal surgery ?Z98.890 - Other specified postprocedural states (ICD-10) Family History Other Heart disease Mental disorder Seizures Type 2 diabetes mellitus Social History Narrative: , 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, 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 [employer] What is your current living situation?: I presently have a place to live Problems where you live: no known problems In the past 12 months, utilities in danger of being shut off: no In past 12 months, lack of transportation kept you from medical appts, meetings, work, or getting things needed for daily living: no In the past 12 mos, have been you worried that your food would run out before y ou had money to buy more?: never true In the past 12 mos, the food you bought just didn't last and you didn't have money to buy more?: never true Smoking Status: Never smoker Do you use any of these nicotine containing products: None Second hand tobacco smoke exposure: No How often do you have a drink containing alcohol: never How many standard drinks containing alcohol do you have on a typical day: 1 or 2 How often do you have six or more drinks on one occasion: Never AUDIT-C Alcohol total score: 0 Non-prescribed substance use: denies use Caffeine: Yes (soda energy drinks) How often does anyone, including family, friends and others, physically hurt you : never How often does anyone, including family, friends and others, insult or talk down to you: never How often does anyone, including family, friends and others, threaten you with harm: never How often does anyone, including family, friends and others, scream or curse at you: never Are you using contraception or practicing any form of control: No service: No Exam Narrative: Exam Narrative: Pleasant. Looks to have been recently tearful. Uncomfortable. Curled up a little bit. Skin is warm and dry. Well-perfused peripherally. Abdomen is soft and moderately tender in the left low abdomen/adnexal area. No masses silvano reciated. Lungs appear clear. Heart in elevated rate but regular rhythm. Const: Vital Signs, click to edit/add: Vital Signs - 24 hr 08/18/24 20:21 Temperature 98.6 F Pulse Rate [Pulse Oximeter] 93 Respiratory Rate 18 Blood Pressure [Ri ght Upper Arm] 131/84 Pulse Oximetry 98 Oxygen Delivery Me thod Room Air Documenting provider has reviewed patient's vital signs: yes Course Vital Signs Vital signs: Initial Vital Signs Temperature 98.6 F 08/18/24 20:21 Temperature Source Temporal Artery Scan 08/18/24 20:21 Pulse Rate 93 08/18/24 20:21 Respiratory Rate 18 08/18/24 20:21 Blood Pressure 131/84 08/18/24 20:21 Blood Pressure Mean 99 08/18/24 20:21 Blood Pressure Position Sitting 08/18/24 20:21 Pulse Oximetry 98 08/18/24 20:21 Oxygen Delivery Method Room Air 08/18/24 20:21 Vital Signs Temperature 98.6 F 08/18/24 20:21 Pulse Rate 93 08/18/24 20:21 Respiratory Rate 18 08/18/24 20:21 Blood Pressure 131/84 08/18/24 20:21 Pulse Oximetry 98 08/18/24 20:21 Oxygen Delivery Method Room Air 08/18/24 20:21 Temperature 98.6 F 08/18/24 20:21 Pulse Rate 93 08/18/24 20:21 Respiratory Rate 18 08/18/24 20:21 Blood Pressure 131/84 08/18/24 20:21 Pulse Oximetry 98 08/18/24 20:21 Oxygen Delivery Method Room Air 08/18/24 20:21 Medications Administered Medications: Discontinued Medications Generic Name Dose Route Start Last Admin Trade Name Freq PRN Reason Stop Dose Admin Sodium Chloride 500 mls @ 500 mls/hr 08/18/24 21:14 08/18/24 22:40 0.9 % Sodium Chloride 500 Ml IV 08/18/24 22:13 Infused .Q1H ONE Infusion Morphine Sulfate 4 mg 08/18/24 21:14 08/18/24 21:27 Morphine 4 Mg/Ml Inj IVP 08/18/24 21:15 4 mg ONCE ONE Administration Medical Decision Making MDM Narrative Medical decision making narrative: If indeed positive test certainly would be prudent to get an ultrasound. I have requested a pelvic ultrasound. Labs are pending otherwise. Certainly could be a flare of this mesenteric panniculitis again or possibly diverticulitis or constipation or UTI? Ovarian torsion? Simply might be related to recent diarrhea. Discussed findings of ultrasound sound with sales and service officer. No ectopic Radiology over-read below INDICATION: Left lower quadrant and pelvic pain, positive test. TECHNIQUE: Ultrasound OB pelvis transvaginal. Real-time harris-scale imaging of the pelvis was performed. COMPARISON: None. FINDINGS: No definite intrauterine gestation. Left ovary measures 3.5 x 2.6 x 3.4 centimeters. 3.2 centimeter left ovarian cystic lesion, likely corpus luteal cyst. Nonvisualization of right ovary. There are no suspicious fluid collections noted in the cul-de-sac. IMPRESSION: No definite intrauterine gestation. Although this could be related to early gestation, of unknown location is not excluded. Recommend continued trending of beta HCG and short-term follow-up as clinically indicated. Incidental 3.2 centimeter left ovarian cystic lesion, likely corpus luteal cyst. This could be followed up with on subsequent imaging as well. Dictated by Brad Workman MD @ 08/18/2024 10:16:39 PM Labs are reassuring. Pending yet is hCG Would like some more pain medication. I am not sure that the left ovarian cyst as the cause of her discomfort. Unclear source of pain but with normal labs I am reassured. In the setting of an hCG now of 450 essentially I would be reluctant to CT without more significant physical findings or laboratory findings. See patient discharge plan for further discussion Continue to stay well-hydrated. I would consider following up in clinic for lab recheck for this hCG level toward the end of this week. I am not convinced that this ovarian cyst is the source of your pain. 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 Might also be related to the diarrhea you've had recently. Return for uncontrolled pain, intractable vomiting, associated fever. Prescribing Zofran and [place] from [facility]. Considering your apparent , can take up to 1000 mg of acetaminophen for dose for pain. Keep in mind that this [place] contains 325 mg of acetaminophen tablet. Medical Records Medical records reviewed: Yes I reviewed the patient's medical records Lab Data Lab results reviewed: Yes I reviewed the patient's lab results Labs: Lab Results 08/18/24 08/18/24 Range/Units 21:30 22:04 WBC 9.76 (4.50-11.00) K/uL RBC 5.13 (4.00-5.20) m/uL Hgb 13.9 (12.0-16.0) gm/dL Hct 42.4 (33.0-51.0) % MCV 83 (80-100) fL MCH 27 (26-34) pg MCHC 33 (32-36) gm/dL RDW Coeff of [place] 13.5 (11.5-15.5) % Plt Count 359 (140-440) K/uL Neut % (Auto) 68.6 (42.0-72.0) % Lymph % (Auto) 22.1 (20-44) % Harlan % (Auto) 7.2 (0.0-11.0) % Eos % (Auto) 1.8 (0.0-7.0) % Baso % (Auto) 0.2 (0.0-3.0) % Neut # (Auto) 6.69 (1.7-7.0) K/uL Lymph # (Auto) 2.16 (0.90-2.90) K/uL Harlan # (Auto) 0.70 (0.00-0.90) K/UL Eos # (Auto) 0.18 (0.00-0.50) K/uL Baso # (Auto) 0.02 (0.00-0.30) K/uL Abs Immat Gran (auto) 0.01 (0.00-0.30) K/uL Imm/Tot Granulo (auto) 0.1 % Sodium 137 (135-149) mmol/L Potassium 4.0 (3.6-5.1) mmol/L Chloride 103 (96-114) mmol/L Carbon Dioxide 25 (20-32) mmol/L Anion Gap 9 (7-15) mEq/L BUN 17 (5-24) mg/dL Creatinine 0.8 (0.5-1.5) mg/dL Estimated Creat Clear 98.18 Estimated GFR 100 ml/min Glucose 99 (60-115) mg/dL Calcium 9.3 (8.4-10.6) mg/dL C-Reactive Protein 1.0 (0.5-1.0) mg/dL HCG, Quant 446.36 mIU/mL Urine Color Yellow (Yellow) Urine Appearance Clear (Clear) Urine pH 6.0 (5.0-8.5) Ur Specific [place] 1.015 (1.000-1.030) Urine Protein Negative (Negative) Urine Glucose (UA) Negative (Negative) Urine Ketones Negative (Negative) Urine Blood Negative (Negative) Urine Nitrite Negative (Negative) Urine Bilirubin Negative (Negative) Urine Urobilinogen 0.2 (0.2-1.0) Ur Leukocyte Esterase Negative (Negative) Urine RBC 0-2 (0-2) Urine WBC 0-2 (0-5) Ur Squamous Epith Cells Few (None-Few) Urine Bacteria None (None) Discharge Plan Discharge Clinical Impression: Left lower quadrant abdominal pain, Ovarian cyst Patient Disposition: Home w/ Parent or Adult Condition: Stable Additional Instructions: Continue to stay well-hydrated. I would consider following up in clinic for lab recheck for this hCG level toward the end of this week. I am not convinced that this ovarian cyst is the source of your pain. 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 Might also be related to the diarrhea you've had recently. Return for uncontrolled pain, intractable vomiting, associated fever. Prescribing Zofran and [place] from [facility]. Considering your apparent , can take up to 1000 mg of acetaminophen for dose for pain. Keep in mind that this [place] contains 325 mg of acetaminophen tablet. Prescriptions: No Action albuterol sulfate 90 mcg/actuation HFA aerosol inhaler 2 inh inhalation Q4H PRN (Reason: shortness of breath or wheezing) Qty: 6.7 0RF ondansetron HCl 4 mg tablet 4 mg PO Q8H One Daily 28-800-440 mg-mcg-mg combo pack PO elderberry fruit 350 mg capsule PO epinephrine 0.3 mg/0.3 mL auto-injector 0.3 mg IM .As Needed as needed PRN (Reason: anaphylaxis) Qty: 2 1RF albuterol sulfate 2.5 mg /3 mL (0.083 %) solution for nebulization 2.5 mg continuous nebulization Q6-8H PRN (Reason: shortness of breath or wheezing) Qty: 90 3RF levothyroxine 50 mcg tablet 50 mcg PO DAILY Qty: 90 2RF ketorolac 10 mg tablet 10 mg PO Q8H PRN (Reason: pain) Qty: 15 0RF Follow Up/Referrals: Bk Mcclellan MD [Primary Care Provider, Internal Medicine] Stand Alone Forms: [employer] Info Instructions
--- NOTE | 2024-08-18 21:12 | CRLHL7_ITS ---
For Patients: As a result of the Century Cures Act, medical imaging exams and procedure reports are released immediately into your electronic medical record. You may view this report before your referring provider. If you have questions, please contact your health care provider. INDICATION: Left lower quadrant and pelvic pain, positive test. TECHNIQUE: Ultrasound OB pelvis transvaginal. Real-time harris-scale imaging of the pelvis was performed. COMPARISON: None. FINDINGS: No definite intrauterine gestation. Left ovary measures 3.5 x 2.6 x 3.4 centimeters. 3.2 centimeter left ovarian cystic lesion, likely corpus luteal cyst. Nonvisualization of right ovary. There are no suspicious fluid collections noted in the cul-de-sac. IMPRESSION: No definite intrauterine gestation. Although this could be related to early gestation, of unknown location is not excluded. Recommend continued trending of beta HCG and short-term follow-up as clinically indicated. Incidental 3.2 centimeter left ovarian cystic lesion, likely corpus luteal cyst. This could be followed up with on subsequent imaging as well. Dictated by Brad Workman MD @ 08/18/2024 10:16:39 PM (Electronically Signed)
[2024-08-18] MEDS: MORPHINE 4 MG/ML INJ IVP (21:27)
[2024-08-18] MEDS: 0.9 % SODIUM CHLORIDE 500 ML 500 ML IV (21:27)
[2024-08-18 21:52] LABS: Basophils Absolute Auto 0.02 K/uL (0.00-0.30); Basophils Percent Auto 0.2 % (0.0-3.0); Eosinophils Absolute Auto 0.18 K/uL (0.00-0.50); Eosinophils Percent Auto 1.8 % (0.0-7.0); Hematocrit 42.4 % (33.0-51.0); Hemoglobin* 13.9 gm/dL (12.0-16.0); Immature Granulocytes Abs Auto 0.01 K/uL (0.00-0.30); Immature Granulocytes Pct Auto 0.1 %; Lymphocytes Absolute Auto 2.16 K/uL (0.90-2.90); Lymphocytes Percent Auto 22.1 % (20-44); Mean Corpuscular HGB Conc 33 gm/dL (32-36); Mean Corpuscular Hemoglobin 27 pg (26-34); Mean Corpuscular Volume 83 fL (80-100); Monocytes Percent Auto 7.2 % (0.0-11.0); Neutrophils Absolute Auto 6.69 K/uL (1.7-7.0); Neutrophils Percent Auto 68.6 % (42.0-72.0); Platelet Count* 359 K/uL (140-440); RDW Coefficient of Variation % 13.5 % (11.5-15.5); Red Blood Count 5.13 m/uL (4.00-5.20); White Blood Count* 9.76 K/uL (4.50-11.00)
[2024-08-18 21:59] LABS: Slide Review Reflex No
[2024-08-18 22:06] LABS: Chloride* 103 mmol/L (96-114); Sodium* 137 mmol/L (135-149)
[2024-08-18 22:09] LABS: Blood Urea Nitrogen* 17 mg/dL (5-24); Creatinine* 0.8 mg/dL (0.5-1.5); Est. Creatinine Clearance* 98.18; Estimated Glomerular Filt Rate 100 ml/min
[2024-08-18 22:10] LABS: Anion Gap 9 mEq/L (7-15); Calcium* 9.3 mg/dL (8.4-10.6); Carbon Dioxide* 25 mmol/L (20-32); Glucose* 99 mg/dL (60-115)
[2024-08-18 22:14] LABS: Appearance Urine Clear (Clear); Bilirubin Urine Negative (Negative); Blood Urine Negative (Negative); Color Urine Yellow (Yellow); Glucose Urine Negative (Negative); Ketones Urine Negative (Negative); Leukocyte Esterase Urine Negative (Negative); Nitrite Urine Negative (Negative); Protein Urine Negative (Negative); Specific Gravity Urine 1.015 (1.000-1.030); Urobilinogen Urine 0.2 (0.2-1.0)
[2024-08-18 22:28] LABS: RBC Urine 0-2 (0-2); Squamous Epithelial Cell Urine Few (None-Few); WBC Urine 0-2 (0-5)
== END 2024-08-18 23:31 | disposition home or self-care (01) ==
PROVIDERS: Emergency Provider Family Medicine; PCP Internal Medicine
DX: R10.32 Left lower quadrant pain (principal); N83.202 Unspecified ovarian cyst, left side
CPT/HCPCS: 36415; 76817; 80048; 81001; 84702; 85025; 86140; 93976; 96361; 96374; 99284; J2270; J7030

== ENCOUNTER 2024-08-20 08:39 | Outpatient (CLI) | payer BC, SELFPAY | END 2024-08-20 08:40 | disposition home or self-care (01) | LOC: NFLDREF 08:40 | PROVIDERS: PCP Internal Medicine; Visit Provider Advanced Practice Midwife | DX: O26.899 Other specified pregnancy related conditions, unspecified trimester (principal); R10.9 Unspecified abdominal pain | CPT/HCPCS: 84702 ==

== ENCOUNTER 2024-09-15 12:44 | Outpatient (CLI) | payer BC, SELFPAY ==
--- NOTE | 2024-09-15 13:00 | CRLHL7_ITS ---
For Patients: As a result of the Century Cures Act, medical imaging exams and procedure reports are released immediately into your electronic medical record. You may view this report before your referring provider. If you have questions, please contact your health care provider. OB ULTRASOUND FIRST TRIMESTER TRANSVAGINAL INDICATION: Dating and viability. TECHNIQUE: Real time harris scale imaging of the fetus was performed. Transvaginal imaging performed. LMP: 07/16/2024. BRIANNE by LMP: 04/22/2025. GA: 8 w, 5 d. Previous US: Yes. BRIANNE by US: -. GA: - w, - d. CRL: 1.8 cm. 8 w 2 d. BRIANNE: 04/25/2025. FHR: 180BPM. Gestational sac: 4.6 cm. Appears within normal limits. Yolk sac: 2.8 mm. Appears within normal limits. Right ovary: N/V. Left ovary: N/V. IMPRESSION: 1. Single living intrauterine measuring 8 weeks 2 days and sonographic due date 04/25/2025. 2. Inferior subchorionic hemorrhage measures 1.4 x 0.4 x 1.0 cm. Javid Krishnamurthy M.D. Diagnostic Radiologist [email or web address] SP/Dictated by: Javid Krishnamurthy MD @ 09/15/2024 1:26:00 PM (Electronically Signed)
== END 2024-09-15 12:45 | disposition home or self-care (01) ==
LOC: US 12:45
PROVIDERS: PCP Internal Medicine; Visit Provider Registered Nurse
DX: Z34.91 Encounter for supervision of normal pregnancy, unspecified, first trimester (principal); O20.9 Hemorrhage in early pregnancy, unspecified; Z3A.08 8 weeks gestation of pregnancy
CPT/HCPCS: 76817; 83021; 84443; 86703; 86706; 86803; 86850; 87086; 87340; 87491; 87591

== ENCOUNTER 2024-09-15 14:04 | Outpatient (CLI) | payer BC, SELFPAY ==
[2024-09-15 22:33] LABS: Chlamydia DNA Amplified* NOT DETECTED (No Detected); GC DNA Amplified* NOT DETECTED (No Detected)
== END 2024-09-15 14:05 | disposition home or self-care (01) ==
PROVIDERS: PCP Internal Medicine; Visit Provider Registered Nurse
DX: Z34.91 Encounter for supervision of normal pregnancy, unspecified, first trimester (principal); Z3A.08 8 weeks gestation of pregnancy
CPT/HCPCS: 83020; 83021; 84443; 85660; 86592; 86703; 86704; 86706; 86762; 86787; 86803; 86850; 87086; 87340; 87491; 87591

== ENCOUNTER 2024-09-20 20:55 | Emergency (ER) | payer BC, SELFPAY ==
--- OUTSIDE RECORDS SUMMARY | 2024-09-20 20:57 | XMS_ITS | Clinical Summary ---
Author Organization [facility] Address [address] [address] Care Team Providers Care Post Acute Care Registered Nurse Name Role Phone Needs Pcp, Assignment Primary Care Provider [phone] Source Comments You are receiving this document as you are listed as the primary care provider,follow-up provider, or the patient has been referred to you for consultation.This is in compliance with the Medicare and[facility] EHR Incentive Program,which states Providers who transition their patient to another setting of careor provider of care or refers their patient to another provider of care shouldprovide summary care record for each transition of care or referral. 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
--- OUTSIDE RECORDS SUMMARY | 2024-09-20 20:57 | XMS_ITS | Clinical Summary ---
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 Pulse 98 04/20/2023 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 Temperature 35.9 C (96.7 F) 04/20/2023 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 Respiratory Rate 16 04/20/2023 10:5 2 AM 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 MAINTENANCE INSTRUCTOR Oxygen Saturation 98% 04/20/2023 10: 52 AM AVIATION MAINTENANCE INSTRUCTOR Inhaled Oxygen Concentration - - Weight 92.9 kg (204 lb 11.2 oz) 024 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 Height 170.2 cm (5' 7) 11/07/2022 6:39 AM CDT Body Mass Index 32.06 11/07/2022 6:39 AM CDT Plan of Treatment Health Maintenance Due Date Last Done Comments Tetanus booster 2003 Depression screening for age 12+ 2004 HIV for age 15-65 2007 Hepatitis C screening for ag e 18-79 2010 Hepatitis B series for 19+ ( 1 of 3 - 19+ 3-dose series) 2011 BMI (ht and wt on same day) for age 18+ 12/28/2017 12/28/2016 COVID-19 vaccine series ( season) 2023 Influenza Vaccine (#1) 2024 Pap test for age 21-65 10/31/2025 [...] 16 Negative Negative 11/07/2022 4:51 PM CDT [facility] TYPE 18 Negative Negative 11/07/2022 4:51 PM CDT [facility] OTHER HIGH RISK TYPES Negative Negative 11/07/2022 4:51 PM CDT [facility] Other (Cervical) 10/31/2022 11:30 AM CDT 11/02/2022 1:58 PM CDT Narrative [facility] - 11/07/2022 4:51 PM CDT HPV types 16, 18, 31, 33, 35, 39, 45, 51, 52, 56, 58, 59, 66 and 68 DNA were undetectable or below the pre-set threshold. Methodology: Bar Carolyn 4800 HPV Test us Adrienne Davis NP MICROBIOLOGY Final Res ult [facility] 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 PCP - General 11/17/21
[2024-09-20 21:01] VITALS: BP 119/80; PULSE 73; RESP 18; TEMP 36.8; O2SAT 99; BMI 32.6
--- NOTE | 2024-09-20 21:28 | ED_ITS ---
HPI - Abdominal Pain General Time Seen by Provider: 21:28 Date Seen: 09/20/24 Chief Complaint: Abdominal Pain Stated Complaint: Abdominal pain, 9 weeks Time Seen by Provider: 09/20/24 21:27 History of Present Illness HPI narrative: This 34-year-old female who is about 9 weeks is coming in with left upper abdominal pain. She awoke with it Saturday morning, has been there, Tylenol is not relieving it, took a 1000 mg of Tylenol twice yesterday. 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 She was back on August 18 with left lower quadrant abdominal pain, thought to be ovarian cyst. She is currently as stated. She had an ultrasound on August 18 which did not show any at that time. Follow-up ultrasound on September 15 showed jimenez IUP, there was an inferior subchorionic hemorrhage measuring 1.4 x 0.4 x 1 cm. Patient notes some cramping type sensation but no vaginal discharge, no vaginal bleeding. She has not noted any urinary symptoms. She did start with nonbloody diarrhea yesterday. She has also had some nausea but it is difficult to say if this is different than the alone. She had an emesis about 6:00 p.m. tonight. The pain is not tolerable for her and she is here for further evaluation. She does have a history of a bowel obstruction requiring surgical resection of some of her bowel, they report that she had inflamed lymph nodes that caused some of the bowel to flip on itself. This was in 2015. She has had a . MD elicited complaint: abdominal pain Related Data Home Medications ?Medication ?Instructions ?Recorded ?Confirmed vits 75-iron 28 mg-folic pkg PO 07/09/2411/02 acid 800 mcg-omega3 440 mg oral pack (One Daily ) Previous Rx's ?Medication ?Instructions ?Recorded epinephrine 0.3 mg/0.3 mL 0.3 mg (0.3 mL) IM .As Neede d as 06/06/22 injection, auto-injector needed PRN anaphylaxis #2 ea albuterol sulfate 90 mcg/actuation 2 inh inhalation Q4 H PRN shortness 05/03/24 aerosol inhaler of breath or wheezing #6.7 g gabbie albuterol sulfate 2.5 mg/3 mL 2.5 mg (3 mL) continuous 05/07/24 (0.083 %) solution for nebulization nebulization Q6-8H PRN shortness of breath or wheezing #90 mL levothyroxine 50 mcg tablet 50 mcg PO DAILY #90 tabs 0 05/08/24 ondansetron HCl 4 mg tablet 4 mg PO Q6-8H PRN nausea a nd 09/15/24 vomiting #30 tabs Allergies Allergy/AdvReac Type Severity Reaction Status Date / Time pineapple Allergy Severe Anaphylaxis Verified 09/20/24 22:59 metoclopramide Allergy Intermediate Jittery Verified 09/20/24 22:59 and anxious Sulfa (Sulfonamide Allergy Intermediate Vomiting Verified 09/20/24 22:59 Antibiotics) latex Allergy Mild Unknown Verified 09/20/24 22:59 Review of Systems Status of ROS Reports: 6 or more systems reviewed and unremarkable except as noted in History and below [facility] Medical History Urinary frequency ?R35.0 - Frequency of micturition (ICD-10) Hair loss ?L65.9 - Nonscarring hair loss, unspecified (ICD-10) COVID-19 ?U07.1 - COVID-19 (ICD-10) Low lying placenta nos or without hemorrhage, third trimester ?O44.43 - Low lying placenta NOS or without hemorrhage, third trimester (ICD- 10) Low vitamin D level ?R79.89 - Other specified abnormal findings of blood chemistry (ICD-10) Intussusception of intestine ?K56.1 - Intussusception (ICD-10) Hypothyroidism ?E03.9 - Hypothyroidism, unspecified (ICD-10) 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 (ICD-10) GERD (gastroesophageal reflux disease) ?K21.9 - Gastro-esophageal reflux disease without esophagitis (ICD-10) Gestational diabetes ?O24.419 - Gestational diabetes mellitus in , unspecified control (ICD-10) Hemorrhage in early ?O20.9 - Hemorrhage in early , unspecified (ICD-10) Surgical History H/O eye surgery ?Z98.890 - Other specified postprocedural states (ICD-10) History of endoscopy ?Z98.890 - Other specified postprocedural states (ICD-10) History of colonoscopy ?Z98.890 - Other specified postprocedural states (ICD-10) History of abdominal surgery ?Z98.890 - Other specified postprocedural states (ICD-10) Family History Other Heart disease Mental disorder Seizures Type 2 diabetes mellitus Social History Narrative: , 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 What is your current living situation?: I presently have a place to live Problems where you live: no known problems In the past 12 months, utilities in danger of being shut off: no In past 12 months, lack of transportation kept you from medical appts, meetings, work, or getting things needed for daily living: no In the past 12 mos, have been you worried that your food would run out before you had money to buy more?: never true In the past 12 mos, the food you bought just didn't last and you didn't have money to buy more?: never true Smoking Status: Never smoker Do you use any of these nicotine containing products: None Second hand tobacco smoke exposure: No How often do you have a drink containing alcohol: never How many standard drinks containing alcohol do you have on a typical day: 1 or 2 How often do you have six or more drinks on one occasion: Never AUDIT-C Alcohol total score: 0 Non-prescribed substance use: denies use Caffeine: Yes (soda energy drinks) How often does anyone, including family, friends and others, physically hurt you : never How often does anyone, including family, friends and others, insult or talk down to you: never How often does anyone, including family, friends and others, threaten you with harm: never How often does anyone, including family, friends and others, scream or curse at you: never Are you using contraception or practicing any form of control: No service: No Exam Const: Vital Signs, click to edit/add: Vital Signs - 24 hr 09/20/24 21:01 09/20/24 22:32 09/20/24 22:32 Temperature 98.2 F Pulse Rate 79 Pulse Rate [Right Pulse Oximeter] 73 Respiratory Rate 18 18 Blood Pressure 119/82 Blood Pressure [Ri ght Upper Arm] 119/80 Pulse Oximetry 99 99 97 Oxygen Delivery Me thod Room Air 09/20/24 23:30 09/20/24 23:40 09/20/24 23:41 Temperature 98.5 F 98.5 F 98.5 F Pulse Rate 63 Pulse Rate [Right Pulse Oximeter] 73 73 Respiratory Rate 16 16 16 Blood Pressure 128/74 Blood Pressure [Ri ght Upper Arm] 125/74 125/74 Pulse Oximetry 100 100 Oxygen Delivery Me thod Room Air This 34-year-old female is alert, interactive, no apparent distress. She is very pleasant, conversive, speech normal. Sclera clear, face atraumatic. Neck supple, no masses. Lungs are clear, good air entry, no wheezing crackles. CV regular rate and rhythm, no murmur, normal S1-S2, no S3-S4. She has definite left upper anterior abdominal pain with occasional guarding, no rebound. I feel no organomegaly or masses. Bowel sounds are present. She is not tender in the suprapubic area, not tender in the left lower quadrant. Skin visualized without rash. No lower extremity edema. Patient was ambulatory into the ED of her own accord. Documenting provider has reviewed patient's vital signs: yes Course Course ED Course: We will stab lotion IV, get basic labs. I will talk to OB regarding this patient but do want to have some labs back. I am not sure that ultrasound is going to be sufficient with left upper abdominal pain. She did have panniculitis seen on CT in July. Potential for partial small-bowel obstruction male still exist. Unclear as to the etiology of her symptoms but think less likely related it is rather probably intra-abdominal pathology. She is only about 9 weeks do not want to do CT imaging if not absolutely necessary. Will likely discuss with Ob hopefully shortly when we have some labs back. May need to address some pain management as well for this patient. Reevaluation(s) Time of Reevaluation #1: 22:22 Reevaluation #1: Nursing reports that patient is having further emesis, retching in the bathroom. She is also complaining of pain. Have initiated L of IV fluids, 4 mg IV Zofran, will page OB to talk about this further. May need to give her some IV narcotics. Consultations Consultation #1: Have spoken with OB on-call Dr. Escobar. The patient's case is presented to her, she agrees that patient needs CT imaging. This certainly is concerning for a bowel pathology. With the diarrhea colitis is a possibility, partial small bowel obstruction, bowel obstruction. Have ordered lactated Ringer's, Zofran and will give patient morphine. Will need pulse oximetry. Time: 22:25 Consultation #2: Did speak with on-call surgeon Dr. Rader and reviewed case. She agrees with supportive cares/pain management. No antibiotics indicated at this time. Did update the patient in reviewed her CT report. Plan will be to discharge to home for further outpatient management of this condition. Signs and symptoms for return reviewed. She does states she has enough Zofran. Will give her 8 tablets of oxycodone from [facility]. Time: 23:08 Vital Signs Vital signs: Initial Vital Signs Temperature 98.2 F 09/20/24 21:01 Temperature Source Temporal Artery Scan 09/20/24 21:01 Pulse Rate 73 09/20/24 21:01 Respiratory Rate 18 09/20/24 21:01 Blood Pressure 119/80 09/20/24 21:01 Blood Pressure Mean 93 09/20/24 21:01 Blood Pressure Position Sitting 09/20/24 21:01 Pulse Oximetry 99 09/20/24 21:01 Oxygen Delivery Method Room Air 09/20/24 21:01 Vital Signs Temperature 98.2 F 09/20/24 21:01 Pulse Rate 73 09/20/24 21:01 Respiratory Rate 18 09/20/24 21:01 Blood Pressure 119/80 09/20/24 21:01 Pulse Oximetry 99 09/20/24 21:01 Oxygen Delivery Method Room Air 09/20/24 21:01 Temperature 98.5 F 09/20/24 23:41 Pulse Rate 73 09/20/24 23:41 Respiratory Rate 16 09/20/24 23:41 Blood Pressure 125/74 09/20/24 23:41 Pulse Oximetry 100 09/20/24 23:40 Oxygen Delivery Method Room Air 09/20/24 23:40 Medications Administered Medications: Generic Name Dose Route Start Last Admin Trade Name Freq PRN Reason Stop Dose Admin Lactated Ringer's 1,000 mls @ 500 mls/hr 09/20/24 22:21 09/20/24 23:52 Lactated Ringers 1000 Ml IV 09/21/24 00:20 Infused .Q2H BOONE Infusion Discontinued Medications Generic Name Dose Route Start Last Admin Trade Name Freq PRN Reason Stop Dose Admin Morphine Sulfate 4 mg 09/20/24 22:29 09/20/24 22:33 Morphine 4 Mg/Ml Inj IVP 09/20/24 22:30 4 mg ONCE ONE Administration Ondansetron HCl 4 mg 09/20/24 22:21 09/20/24 22:26 Ondansetron 2 Mg/Ml Inj IVP 09/20/24 22:22 4 mg ONCE ONE Administration MDM - Abdominal Pain Lab Data Attestation: I reviewed the patient's lab results. Labs: Lab Results 09/20/24 09/20/24 Range/Units 21:35 22:32 WBC 10.15 (4.50-11.00) K/uL RBC 4.97 (4.00-5.20) m/uL Hgb 13.6 (12.0-16.0) gm/dL Hct 42.1 (33.0-51.0) % MCV 85 (80-100) fL MCH 27 (26-34) pg MCHC 32 (32-36) gm/dL RDW Coeff of [place] 13.6 (11.5-15.5) % Plt Count 359 (140-440) K/uL Neut % (Auto) 66.1 (42.0-72.0) % Lymph % (Auto) 24.1 (20-44) % Mcdonald % (Auto) 6.9 (0.0-11.0) % Eos % (Auto) 1.7 (0.0-7.0) % Baso % (Auto) 0.1 (0.0-3.0) % Neut # (Auto) 6.71 (1.7-7.0) K/uL Lymph # (Auto) 2.45 (0.90-2.90) K/uL Mcdonald # (Auto) 0.70 (0.00-0.90) K/UL Eos # (Auto) 0.17 (0.00-0.50) K/uL Baso # (Auto) 0.01 (0.00-0.30) K/uL Abs Immat Gran (auto) 0.11 (0.00-0.30) K/uL Imm/Tot Granulo (auto) 1.1 % Sodium 137 (135-149) mmol/L Potassium 3.6 (3.6-5.1) mmol/L Chloride 104 (96-114) mmol/L Carbon Dioxide 26 (20-32) mmol/L Anion Gap 7 (7-15) mEq/L BUN 8 (5-24) mg/dL Creatinine 0.5 (0.5-1.5) mg/dL Estimated Creat Clear 151.22 Estimated GFR 128 ml/min Glucose 84 (60-115) mg/dL Lactate 0.6 (0.5-1.9) mmol/L Calcium 9.1 (8.4-10.6) mg/dL Total Bilirubin 0.2 (0.1-1.5) mg/dL AST 20 (12-35) U/L ALT 14 (4-35) U/L Alkaline Phosphatase 59 (40-150) U/L C-Reactive Protein 2.5 H (0.5-1.0) mg/dL Total Protein 7.5 (6.0-8.3) g/dL Albumin 4.2 (3.3-5.0) g/dL Lipase 119 (23-300) U/L Urine Color Yellow (Yellow) Urine Appearance Clear (Clear) Urine pH 7.0 (5.0-8.5) Ur Specific [place] 1.025 (1.000-1.030) Urine Protein Negative (Negative) Urine Glucose (UA) Negative (Negative) Urine Ketones Negative (Negative) Urine Blood Negative (Negative) Urine Nitrite Negative (Negative) Urine Bilirubin Negative (Negative) Urine Urobilinogen 0.2 (0.2-1.0) Ur Leukocyte Esterase Negative (Negative) Urine RBC 0-2 (0-2) Urine WBC 0-2 (0-5) Ur Squamous Epith Cells None (None-Few) Urine Bacteria None (None) Lab Acknowledgement Test Added Imaging Data CT scan - abdomen: Attestation: I have reviewed the pertinent imaging results. Radiologist's impression: Patient: GHADA RODGERS Facility:?[facility] Patient ID:?[id number] Site Patient ID:?[id number]. Site :?[id number] Study:?CT-Abdomen/Pelvis W/98CC [id number] 10:58:31 PM Ordering Physician:Allyson Ozuna Final Report: Indication: Left upper quadrant pain, nausea, vomiting, Technique: CT through the abdomen and pelvis following 98 mL Isovue 370 IV contrast Comparison: None Findings: Lower chest: No acute abnormality appreciated. Hepatobiliary: No significant parenchymal abnormality is appreciated. Spleen: Unremarkable. Pancreas: No acute abnormality appreciated. Adrenal glands: No acute abnormality appreciated. Kidneys: Mild rotated right kidney. Duplicated left renal collecting system. No hydronephrosis. No obstructing lesion. No acute parenchymal abnormality. Bowel: No obstruction. Inflammation along the descending colon with a halo of stranding surrounding a lobulation of fat noted. The appendix is visualized and appears unremarkable. Vascular: No acute abnormality appreciated. Lymph nodes: No gross lymphadenopathy. Peritoneum: No free air. No free fluid. : No acute abnormality appreciated. Soft tissues: No acute abnormality appreciated. Bones: No acute fracture. No lytic or blastic lesion. Lumbosacral spondylosis. Impression: 1. Suspect omental infarct versus epiploic appendagitis of the descending colon. 2. Left ovarian cyst, possibly a corpus luteum cyst. Apparent gravid uterus. These findings are poorly evaluated by CT. Ultrasound would be recommended if there is concern for acute pelvic pathology. 3. 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 No acute renal abnormality appreciated. Please note that all CT scans at this facility use dose modulation, iterative reconstruction, and/or weight-based dosing when appropriate to reduce radiation dose to as low as reasonably achievable. Dictated by Sony Madden MD @ 09/20/2024 11:01:55 PM (Electronic Signature) Discharge Plan Discharge Clinical Impression: Abdominal pain, left upper quadrant Patient Disposition: Home, Self-Care Condition: Stable Instructions: Epiploic Appendagitis (ED) Additional Instructions: The CT is showing either omental infarct or epiploic appendagitis. Either of these conditions is treated conservatively. You can take Tylenol 1000 mg 3 times a day baseline for pain. Have written for 8 tablets of oxycodone 5 mg, 1 every 6 hours as needed for severe pain. Push fluids. Intake of solids as your appetite and symptoms allow. Can use Zofran per your prescription for nausea. Do recommend a follow-up in OB this next week. If your pain is not controlled with this regimen or worsening, develops fevers over 101? F, have bloody diarrhea developed, feel you are worsening or have further concerns, please return to the ER for further evaluation. This condition may take 7-10 days to resolve. Low-grade fevers certainly can happen with this. Narcotics can be constipating, may need to use Miralax per bottle directions to prevent this. Activity Level: Activity as Tolerated Discharge Diet: Regular Prescriptions: No Action albuterol sulfate 90 mcg/actuation HFA aerosol inhaler 2 inh inhalation Q4H PRN (Reason: shortness of breath or wheezing) Qty: 6.7 0RF One Daily 28-800-440 mg-mcg-mg combo pack PO epinephrine 0.3 mg/0.3 mL auto-injector 0.3 mg IM .As Needed as needed PRN (Reason: anaphylaxis) Qty: 2 1RF ondansetron HCl 4 mg tablet 4 mg PO Q6-8H PRN (Reason: nausea and vomiting) Qty: 30 0RF albuterol sulfate 2.5 mg /3 mL (0.083 %) solution for nebulization 2.5 mg continuous nebulization Q6-8H PRN (Reason: shortness of breath or wheezing) Qty: 90 3RF levothyroxine 50 mcg tablet 50 mcg PO DAILY Qty: 90 2RF Follow Up/Referrals: Bk Mcclellan MD [Primary Care Provider, Internal Medicine] Stand Alone Forms: [facility] [employer] Info Instructions
[2024-09-20 21:52] LABS: Lactate* 0.6 mmol/L (0.5-1.9)
[2024-09-20 21:54] LABS: Appearance Urine Clear (Clear)
[2024-09-20 22:09] LABS: Albumin* 4.2 g/dL (3.3-5.0); Chloride* 104 mmol/L (96-114); Hematocrit 42.1 % (33.0-51.0); Hemoglobin* 13.6 gm/dL (12.0-16.0); Immature Granulocytes Abs Auto 0.11 K/uL (0.00-0.30); Immature Granulocytes Pct Auto 1.1 %; Lymphocytes Absolute Auto 2.45 K/uL (0.90-2.90); Mean Corpuscular HGB Conc 32 gm/dL (32-36); Mean Corpuscular Hemoglobin 27 pg (26-34); Mean Corpuscular Volume 85 fL (80-100); Potassium* 3.6 mmol/L (3.6-5.1); RDW Coefficient of Variation % 13.6 % (11.5-15.5); Red Blood Count 4.97 m/uL (4.00-5.20); Sodium* 137 mmol/L (135-149); White Blood Count* 10.15 K/uL (4.50-11.00)
[2024-09-20 22:10] LABS: Slide Review Reflex No
[2024-09-20 22:11] LABS: Blood Urea Nitrogen* 8 mg/dL (5-24); Creatinine* 0.5 mg/dL (0.5-1.5); Est. Creatinine Clearance* 151.22; Estimated Glomerular Filt Rate 128 ml/min
[2024-09-20 22:12] LABS: Alanine Aminotransferase* 14 U/L (4-35); Alkaline Phosphatase* 59 U/L (40-150); Anion Gap 7 mEq/L (7-15); Aspartate Amino Transferase* 20 U/L (12-35); Bilirubin Total* 0.2 mg/dL (0.1-1.5); Carbon Dioxide* 26 mmol/L (20-32); Total Protein* 7.5 g/dL (6.0-8.3)
[2024-09-20 22:13] LABS: Calcium* 9.1 mg/dL (8.4-10.6); Glucose* 84 mg/dL (60-115)
[2024-09-20] MEDS: ONDANSETRON 2 MG/ML inj 4 MG IVP (22:26)
[2024-09-20] MEDS: LACTATED RINGERS 1000 ML 1,000 ML 500 ML IV (22:26)
--- NOTE | 2024-09-20 22:30 | CRLHL7_ITS ---
For Patients: As a result of the Century Cures Act, medical imaging exams and procedure reports are released immediately into your electronic medical record. You may view this report before your referring provider. If you have questions, please contact your health care provider. Indication: Left upper quadrant pain, nausea, vomiting, Technique: CT through the abdomen and pelvis following 98 mL Isovue 370 IV contrast Comparison: None Findings: Lower chest: No acute abnormality appreciated. Hepatobiliary: No significant parenchymal abnormality is appreciated. Spleen: Unremarkable. Pancreas: No acute abnormality appreciated. Adrenal glands: No acute abnormality appreciated. Kidneys: Mild rotated right kidney. Duplicated left renal collecting system. No hydronephrosis. No obstructing lesion. No acute parenchymal abnormality. Bowel: No obstruction. Inflammation along the descending colon with a halo of stranding surrounding a lobulation of fat noted. The appendix is visualized and appears unremarkable. Vascular: No acute abnormality appreciated. Lymph nodes: No gross lymphadenopathy. Peritoneum: No free air. No free fluid. : No acute abnormality appreciated. Soft tissues: No acute abnormality appreciated. Bones: No acute fracture. No lytic or blastic lesion. Lumbosacral spondylosis. Impression: 1. Suspect omental infarct versus epiploic appendagitis of the descending colon. 2. Left ovarian cyst, possibly a corpus luteum cyst. Apparent gravid uterus. These findings are poorly evaluated by CT. Ultrasound would be recommended if there is concern for acute pelvic pathology. 3. 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 No acute renal abnormality appreciated. Please note that all CT scans at this facility use dose modulation, iterative reconstruction, and/or weight-based dosing when appropriate to reduce radiation dose to as low as reasonably achievable. Dictated by Sony Madden MD @ 09/20/2024 11:01:55 PM (Electronically Signed)
[2024-09-20 22:32] VITALS: BP 119/82; PULSE 79; RESP 18; O2SAT 97; O2SAT 99
[2024-09-20] MEDS: MORPHINE 4 MG/ML INJ IVP (22:33)
[2024-09-20 23:30] VITALS: BP 128/74; PULSE 63; RESP 16; TEMP 36.9; O2SAT 100
[2024-09-20 23:40] VITALS: BP 125/74; PULSE 73; RESP 16; TEMP 36.9; O2SAT 100
[2024-09-20 23:41] VITALS: BP 125/74; PULSE 73; RESP 16; TEMP 36.9
== END 2024-09-20 23:45 | disposition home or self-care (01) ==
PROVIDERS: Emergency Provider Family Medicine; PCP Internal Medicine
DX: R10.12 Left upper quadrant pain (principal); Z3A.09 9 weeks gestation of pregnancy
CPT/HCPCS: 36415; 74177; 80053; 81001; 83605; 83690; 85025; 86140; 94761; 96374; 96375; 99284; J2270; J2405; J7120; Q9967

== ENCOUNTER 2024-10-17 19:26 | Emergency (ER) | payer BC, SELFPAY ==
--- OUTSIDE RECORDS SUMMARY | 2024-10-17 19:28 | XMS_ITS | Clinical Summary ---
Author Organization [employer] [facility] Address [address] [place] [id number] Care Team Providers Care Rotary Drier Operator Name Role Phone Pcp, No Primary Care Provider Unavailabl e Allergies Active Allergy Reactions Criticality Noted Date Comments Morphine Hives 12/28/2016 Pineapple Anaphylaxis High 12/28/2016 Metoclopramide Hcl Anxiety 12/28/2016 Sulfa (Sulfonamide Antibiotics) Vomiting 12/28/2016 Other reaction(s): GI intolerance Medications 88-[id number] 6-dha 30 mg iron-1mg -200 mg cap [...] Comments Blood Pressure 126/72 04/20/2023 10:52 AM BULLDOGGER Pulse 98 04/20/2023 10:52 AM BULLDOGGER Temperature 35.9 C (96.7 F) 04/20/2023 10:52 AM BULLDOGGER Respiratory Rate 16 04/20/2023 10:5 2 AM BULLDOGGER Oxygen Saturation 98% 04/20/2023 10: 52 AM BULLDOGGER Inhaled Oxygen Concentration - - Weight 92.9 kg (204 lb 11.2 oz) 024 10:52 AM BULLDOGGER Height 170.2 cm (5' 7) 11/07/2022 6:39 [...] 16 Negative Negative 11/07/2022 4:51 PM CDT [facility] TYPE 18 Negative Negative 11/07/2022 4:51 PM CDT [facility] OTHER HIGH RISK TYPES Negative Negative 11/07/2022 4:51 PM CDT [facility] Other (Cervical) 10/31/2022 11:30 AM CDT 11/02/2022 1:58 PM CDT Narrative [facility] - 11/07/2022 4:51 PM CDT HPV types 16, 18, 31, 33, 35, 39, 45, 51, 52, 56, 58, 59, 66 and 68 DNA were undetectable or below the pre-set threshold. Methodology: Bar Carolyn 4800 HPV Test us Adrienne Dvais NP MICROBIOLOGY Final Res ult [facility] [address] [place] [address], [place] from Last 3 Months or Most Recently Relevant to Health Maintenance [place] [address] OF [employer] Care Teams Rotary Drier Operator Relationship Specialty Start Date End Date Pcp, No . PCP - General 11/17/21
--- OUTSIDE RECORDS SUMMARY | 2024-10-17 19:28 | XMS_ITS | Clinical Summary ---
Author Organization [facility] Address [address], [place] [address] Care Team Providers Care Humanities Department Chair Name Role Phone Needs Pcp, Assignment Primary Care Provider [phone] Source Comments You are receiving this document as you are listed as the primary care provider,follow-up provider, or the patient has been referred to you for consultation.This is in compliance with the Medicare and[facility] EHR Incentive Program,which states Providers who transition their patient to another setting of careor provider of care or refers their patient to another provider of care shouldprovide summary care record for each transition of care or referral. [employer] Allergies Active Allergy Reactions Criticality Noted Date [...] on file Legal Sex Female 10:55 AM ARMHOLE SEWER Gender Identity Not on file Sexual Orientation [...] patient's age to complete this topic [facility] Care Teams Humanities Department Chair Relationship Specialty Start Date End Date Needs Pcp, [place] [address] PCP - General 09/19/21
[2024-10-17 19:33] VITALS: BP 147/87; PULSE 88; RESP 18; TEMP 36.6; O2SAT 98; BMI 32.6
--- NOTE | 2024-10-17 19:54 | CRLHL7_ITS ---
For Patients: As a result of the Cures Act, medical imaging exams and procedure reports are released immediately into your electronic medical record. You may view this report before your referring provider. If you have questions, please contact your health care provider. INDICATION: Vaginal discharge. TECHNIQUE: Ultrasound OB pelvis transabdominal and transvaginal. Real-time harris-scale imaging of the pelvis was performed. COMPARISON: September 15, 2024. FINDINGS: There is a single intrauterine gestation. The embryo demonstrates a regular cardiac rate measuring 155 beats per minute. The embryo`s crown rump length measurement of 6.7 cm corresponds to a gestational age of 13 weeks, 0 days with a sonographic due date of 04/24/2025. Anterior placenta. IMPRESSION: Single viable intrauterine with gestational age of 13 weeks, 0 days. No abnormalities seen. Dictated by Brad Workman MD @ 10/17/2024 8:43:35 PM (Electronically Signed)
--- NOTE | 2024-10-17 20:02 | ED_ITS ---
HPI - General Time Seen by Provider: 20:02 Date Seen: 10/17/24 Chief complaint: OB/Uterine Contractions Stated complaint: 13 weeks preg. water broke? Time Seen by Provider: 10/17/24 20:00 Source: patient, RN notes reviewed and old records reviewed Mode of arrival: ambulatory Limitations: no limitations History of Present Illness HPI Narrative: Paula is a 34 year old female at approximately 13 weeks who comes to the ER for evaluation of clear fluid coming from the vagina and mild abdominal cramping. This started within the past few hours when returning from an afternoon at the [employer]. Patient has had a history of 2 spontaneous abortions at approximately 6 weeks. She had a live at approximately 39 weeks via C- section. This has been complicated by some abdominal pain that then resolved. Paula notes no recent cough cold congestion fever or chills. She denies dysuria hematuria but does note that she has been urinating quite a bit. No recent sexual activity. Abdominal cramping is mild and 1/10 per patient. Patient blood type A-negative. Related Data Home Medications ?Medication ?Instructions ?Recorded ?Confirmed vits 75-iron 28 mg-folic pkg PO 07/09/24 0807/03 acid 800 mcg-omega3 440 mg oral pack (One Daily ) Previous Rx's ?Medication ?Instructions ?Recorded epinephrine 0.3 mg/0.3 mL 0.3 mg (0.3 mL) IM .As Neede d as 06/06/22 injection, auto-injector needed PRN anaphylaxis #2 ea albuterol sulfate 90 mcg/actuation 2 inh inhalation Q4 H PRN shortness 05/03/24 aerosol inhaler of breath or wheezing #6.7 g gabbie albuterol sulfate 2.5 mg/3 mL 2.5 mg (3 mL) continuous 05/07/24 (0.083 %) solution for nebulization nebulization Q6-8H PRN shortness of breath or wheezing #90 mL levothyroxine 50 mcg tablet 50 mcg PO DAILY #90 tabs 0 05/08/24 ondansetron HCl 4 mg tablet 4 mg PO Q6-8H PRN nausea a nd 09/15/24 vomiting #30 tabs Allergies Allergy/AdvReac Type Severity Reaction Status Date / Time pineapple Allergy Severe Anaphylaxis Verified 10/12/24 11:38 metoclopramide Allergy Intermediate Jittery Verified 10/12/24 11:38 and anxious Sulfa (Sulfonamide Allergy Intermediate Vomiting Verified 10/12/24 11:38 Antibiotics) latex Allergy Mild Unknown Verified 10/12/24 11:38 Review of Systems Status of ROS: Reports: 10 or more systems reviewed and unremarkable except as noted in History and below Const: Denies: fever, chills or fatigue ENMT: Denies: nasal congestion Cardio: Denies: chest pain, lightheadedness or shortness of breath with exertion Resp: Denies: shortness of breath or cough GI: Reports: nausea (In the mornings); Denies: abdominal pain or diarrhea : Reports: urinary frequency; Denies: painful urination, urinary urgency or blood in urine Musculo: Denies: back pain Integ/Breast: Reports: redness Endo: Denies: fatigue PFSH [facility] Medical History Abdominal pain, left upper quadrant ?R10.12 - Left upper quadrant pain (ICD-10) Hemorrhoids ?K64.9 - Unspecified hemorrhoids (ICD-10) Gestational diabetes ?O24.419 - Gestational diabetes mellitus in , unspecified control (ICD-10) Low vitamin D level ?R79.89 - Other specified abnormal findings of blood chemistry (ICD-10) Urinary frequency ?R35.0 - Frequency of micturition (ICD-10) Hair loss ?L65.9 - Nonscarring hair loss, unspecified (ICD-10) COVID-19 ?U07.1 - COVID-19 (ICD-10) Low lying placenta nos or without hemorrhage, third trimester ?O44.43 - Low lying placenta NOS or without hemorrhage, third trimester (ICD- 10) Intussusception of intestine ?K56.1 - Intussusception (ICD-10) Hypothyroidism ?E03.9 - Hypothyroidism, unspecified (ICD-10) 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 (ICD-10) GERD (gastroesophageal reflux disease) ?K21.9 - Gastro-esophageal reflux disease without esophagitis (ICD-10) Hemorrhage in early ?O20.9 - Hemorrhage in early , unspecified (ICD-10) Surgical History S/P section ?Z98.891 - History of uterine scar from previous surgery (ICD-10) H/O eye surgery ?Z98.890 - Other specified postprocedural states (ICD-10) History of endoscopy ?Z98.890 - Other specified postprocedural states (ICD-10) History of colonoscopy ?Z98.890 - Other specified postprocedural states (ICD-10) History of abdominal surgery ?Z98.890 - Other specified postprocedural states (ICD-10) Family History Other Heart disease Mental disorder Seizures Type 2 diabetes mellitus Social History Narrative: , 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, 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 [employer] What is your current living situation?: I presently have a place to live Problems where you live: no known problems In the past 12 months, utilities in danger of being shut off: no In past 12 months, lack of transportation kept you from medical appts, meetings, work, or getting things needed for daily living: no In the past 12 mos, have been you worried that your food would run out before you had money to buy more?: never true In the past 12 mos, the food you bought just didn't last and you didn't have money to buy more?: never true Smoking Status: Never smoker Do you use any of these nicotine containing products: None Second hand tobacco smoke exposure: No How often do you have a drink containing alcohol: never How many standard drinks containing alcohol do you have on a typical day: 1 or 2 How often do you have six or more drinks on one occasion: Never AUDIT-C Alcohol total score: 0 Non-prescribed substance use: denies use Caffeine: Yes (soda energy drinks) How often does anyone, including family, friends and others, physically hurt you : never How often does anyone, including family, friends and others, insult or talk down to you: never How often does anyone, including family, friends and others, threaten you with harm: never How often does anyone, including family, friends and others, scream or curse at you: never Are you using contraception or practicing any form of control: No service: No Exam Narrative: Exam Narrative: Alert and oriented. Very pleasant. Accompanied by her is loving and supportive. Sunburn to especially on her nose. Head is atraumatic normocephalic. Mentation and speech is normal. Heart with regular rate and rhythm. No additional murmurs or rubs. Lungs are clear bilaterally. Abdomen soft nontender. No CVA tenderness with percussion. Const: Vital Signs, click to edit/add: Vital Signs - 24 hr 10/17/24 19:33 Temperature 97.9 F Pulse Rate [Right Pulse Oximeter] 88 Respiratory Rate 18 Blood Pressure [Ri ght Upper Arm] 147/87 H Pulse Oximetry 98 Oxygen Delivery Me thod Room Air Documenting provider has reviewed patient's vital signs: yes Course Course ED Course: Differential diagnosis includes but is not limited to urinary incontinence, UTI, membrane rupture, like water drainage. Will check a UA, Amnisure, OB ultrasound. I have asked OB to assist us in the collection of vaginal fluid. Consultations Consultation #1: At the pleasure of speaking with OBGYN consult Dr. Galvan regarding the normal ultrasound and negative amnisure. At this time patient is going to be discharged home as the likelihood of membrane ruptures extremely low. Vital Signs Vital signs: Initial Vital Signs Temperature 97.9 F 10/17/24 19:33 Temperature Source Temporal Artery Scan 10/17/24 19:33 Pulse Rate 88 10/17/24 19:33 Respiratory Rate 18 10/17/24 19:33 Blood Pressure 147/87 H 10/17/24 19:33 Blood Pressure Mean 107 H 10/17/24 19:33 Blood Pressure Position Sitting 10/17/24 19:33 Pulse Oximetry 98 10/17/24 19:33 Oxygen Delivery Method Room Air 10/17/24 19:33 Vital Signs Temperature 97.9 F 10/17/24 19:33 Pulse Rate 88 10/17/24 19:33 Respiratory Rate 18 10/17/24 19:33 Blood Pressure 147/87 H 10/17/24 19:33 Pulse Oximetry 98 10/17/24 19:33 Oxygen Delivery Method Room Air 10/17/24 19:33 Temperature 97.9 F 10/17/24 19:33 Pulse Rate 88 10/17/24 19:33 Respiratory Rate 18 10/17/24 19:33 Blood Pressure 147/87 H 10/17/24 19:33 Pulse Oximetry 98 10/17/24 19:33 Oxygen Delivery Method Room Air 10/17/24 19:33 MDM - OB/Uterine Contractions MDM Narrative Medical decision making narrative: 1. Abdominal cramping-mild. No evidence of membrane rupture. Normal ultrasound and negative Amnisure. No evidence of UTI. Given this did speak with OBGYN environmental marketer. Patient will be discharged home. Of course should she have fever, recurrent symptoms would have her return to the ER for further evaluation but at this time offering her reassurance. 2. Disposition-home at this time. Follow-up as needed. Return to the ER for worsening or recurrent symptoms. Medical Records Attestation: I reviewed the patient's medical records. Lab Data Attestation: I reviewed the patient's lab results. Labs: Lab Results 10/17/24 10/17/24 Range/Units 20:08 20:30 Urine Color Light yellow (Yellow) Urine Appearance Clear (Clear) Urine pH 5.5 (5.0-8.5) Ur Specific [place] 1.010 (1.000-1.030) Urine Protein Negative (Negative) Urine Glucose (UA) Negative (Negative) Urine Ketones Negative (Negative) Urine Blood Negative (Negative) Urine Nitrite Negative (Negative) Urine Bilirubin Negative (Negative) Urine Urobilinogen 0.2 (0.2-1.0) Ur Leukocyte Esterase Negative (Negative) Urine RBC 0-2 (0-2) Urine WBC 0-2 (0-5) Ur Squamous Epith Cells None (None-Few) Urine Bacteria None (None) Membrane Rupture Negative Imaging Data US - abdomen: Attestation: I have reviewed the pertinent imaging results. Radiologist's impression: FINDINGS: There is a single intrauterine gestation. The embryo demonstrates a regular cardiac rate measuring 155 beats per minute. The embryo`s crown rump length measurement of 6.7 cm corresponds to a gestational age of 13 weeks, 0 days with a sonographic due date of 04/24/2025. Anterior placenta. IMPRESSION: Single viable intrauterine with gestational age of 13 weeks, 0 days. No abnormalities seen. Discharge Plan Discharge Clinical Impression: Cramping complicating , antepartum Patient Disposition: Home, Self-Care Condition: Improved Additional Instructions: Rest, continue to monitor. Follow-up with your your OB next week for recheck if needed. Seek medical emergent attention if you feel like you have continued leakage of fluid or the onset of other symptoms. Prescriptions: No Action albuterol sulfate 90 mcg/actuation HFA aerosol inhaler 2 inh inhalation Q4H PRN (Reason: shortness of breath or wheezing) Qty: 6.7 0RF One Daily 28-800-440 mg-mcg-mg combo pack PO epinephrine 0.3 mg/0.3 mL auto-injector 0.3 mg IM .As Needed as needed PRN (Reason: anaphylaxis) Qty: 2 1RF ondansetron HCl 4 mg tablet 4 mg PO Q6-8H PRN (Reason: nausea and vomiting) Qty: 30 0RF albuterol sulfate 2.5 mg /3 mL (0.083 %) solution for nebulization 2.5 mg continuous nebulization Q6-8H PRN (Reason: shortness of breath or wheezing) Qty: 90 3RF levothyroxine 50 mcg tablet 50 mcg PO DAILY Qty: 90 2RF Follow Up/Referrals: Bk Mcclellan MD [Primary Care Provider, Internal Medicine] Stand Alone Forms: [employer] Info Instructions
[2024-10-17 20:28] LABS: Amnisure Rom* Negative
[2024-10-17 20:35] LABS: Appearance Urine Clear (Clear)
== END 2024-10-17 21:20 | disposition home or self-care (01) ==
PROVIDERS: Emergency Provider Family Medicine; PCP Internal Medicine
DX: Z03.71 Encounter for suspected problem with amniotic cavity and membrane ruled out (principal); Z3A.13 13 weeks gestation of pregnancy
CPT/HCPCS: 76815; 81001; 84112; 99283; 99284

== ENCOUNTER 2024-11-10 15:31 | Outpatient (CLI) | payer BC, SELFPAY | END 2024-11-10 15:32 | disposition home or self-care (01) | LOC: NFLDREF 11-12 07:01 | PROVIDERS: PCP Internal Medicine; Referring Provider Internal Medicine; Visit Provider Obstetrics & Gynecology | DX: E03.9 Hypothyroidism, unspecified (principal) | CPT/HCPCS: 84443 ==

== ENCOUNTER 2024-12-03 12:41 | Outpatient (CLI) | payer BC, SELFPAY ==
--- NOTE | 2024-12-03 13:00 | CRLHL7_ITS ---
For Patients: As a result of the Century Cures Act, medical imaging exams and procedure reports are released immediately into your electronic medical record. You may view this report before your referring provider. If you have questions, please contact your health care provider. OB ULTRASOUND 12/03/2024 CLINICAL HISTORY: Supervision of normal . COMPARISON: 10/17/2024. TECHNIQUE: Real time harris scale imaging of the fetus was performed. Transabdominal and transvaginal imaging performed. Transvaginal ultrasound of the pelvis was performed to better evaluate the genitourinary organs such as the ovaries and/or endometrium. FINDINGS: LMP: 07/16/2024. BRIANNE by LMP: 04/22/2025. GA: 20 weeks 0 days. Position: Vertex. Cervix: Visualized Technique: TA and TV. Length of closed cervix: 4.1 cm. Placenta/Cord: Anterior. Technique: TA. Placenta tip to internal os: 1.6 cm. Umbilical cord: 3 vessel cord. Placental Insertion: Central. Amniotic Fluid: 4.3 cm SDP. OBSERVED STRUCTURES: Calvarium/Spine: Cerebellum Cisterna Magna Nuchal Fold Lateral Ventricle CSP Choroid Plexus Midline Falx Spine Abdomen: Stomach Abd Cord Insert Urinary Bladder Face: Nose/Lips Orbital view Profile Limbs: Upper extremities Lower extremities Hands Feet Vascular: 4 Ch Heart LVOT 3VV 3VTV BIOMETRY BPD: 4.6 cm, 20 weeks 0 days. 48% HC: 17.1 cm, 19 weeks 5 days. 28% AC: 14.8 cm, 20 weeks 0 days. 46% FL: 3.2 cm, 20 weeks 0 days. 45% FL/AC Ratio: 21.85% HC/AC Ratio: 1.16. Heart Rate: 141 bpm. Age by this US: 20 weeks 3 days. BRIANNE by this US: 04/19/2025. EFW: 327.47 grams, 0 lb 12 oz. Percentile by BRIANNE: 47% IMPRESSION: 1. Incomplete visualization of the kidneys, diaphragm and RVOT. Remainder of the anatomic survey is normal. Short term follow-up recommended. 2. Concordance of clinical and sonographic dating. 3. Anterior placenta edge is located 1.6 cm from the internal cervical os on transvaginal imaging. Follow-up in third trimester recommended. Javid Krishnamurthy M.D. Diagnostic Radiologist [email or web address] Transcribed: 3:57 pm DW/Dictated by: Javid Krishnamurthy MD @ 12/03/2024 3:21:00 PM (Electronically Signed)
== END 2024-12-03 12:42 | disposition home or self-care (01) ==
LOC: US 12:41
PROVIDERS: PCP Internal Medicine; Visit Provider Obstetrics & Gynecology
DX: Z34.92 Encounter for supervision of normal pregnancy, unspecified, second trimester (principal); Z3A.20 20 weeks gestation of pregnancy
CPT/HCPCS: 76805; 76817

== ENCOUNTER 2024-12-08 14:56 | Outpatient (CLI) | payer BC, SELFPAY | END 2024-12-08 14:57 | disposition home or self-care (01) | LOC: NFLDREF 14:57 | PROVIDERS: PCP Internal Medicine; Visit Provider Registered Nurse | DX: R00.2 Palpitations (principal) | CPT/HCPCS: 84443 ==

== ENCOUNTER 2024-12-27 06:59 | Outpatient (CLI) | payer BC, SELFPAY ==
[2024-12-27 07:31] VITALS: BP 112/68; PULSE 85
[2024-12-27 07:34] VITALS: PULSE 83; O2SAT 98
--- NOTE | 2024-12-27 07:56 | CRLHL7_ITS ---
For Patients: As a result of the Century Cures Act, medical imaging exams and procedure reports are released immediately into your electronic medical record. You may view this report before your referring provider. If you have questions, please contact your health care provider. INDICATION: Severe abdominal pain. Patient is 23 weeks . COMPARISON: Ob ultrasound 12/03/2024 TECHNIQUE: Marcelo-scale and color Doppler ultrasound of the gallbladder, bile ducts, and right lower quadrant FINDINGS: The gallbladder is normally distended. No wall thickening. No sludge or stones. Positive Jeffers sign. Patient described 8/10 pain. The extrahepatic bile duct is partially seen and measures 3 millimeters, normal. Portions of the right kidney are seen and appear within normal limits. Shadowing stool and gas in the right lower quadrant. The appendix is not visualized. Gravid uterus partially seen. IMPRESSION: 1. Patient described a positive Jeffers`s sign with 8/10 pain with exam over the gallbladder. However, the gallbladder is sonographically normal. 2. Nondiagnostic ultrasound for appendicitis due to the gravid uterus. Recommend MR abdomen pelvis without contrast if there is ongoing concern. Dictated by Lakisha Price MD @ 12/27/2024 9:30:24 AM (Electronically Signed)
[2024-12-27 08:07] VITALS: RESP 18; TEMP 36.6
[2024-12-27 08:36] LABS: Hematocrit* 37.2 % (33.0-51.0); Hemoglobin* 12.5 gm/dL (12.0-16.0); Immature Granulocytes Pct Auto 0.1 %; Mean Corpuscular HGB Conc 34 gm/dL (32-36); Mean Corpuscular Hemoglobin 29 pg (26-34); Mean Corpuscular Volume 85 fL (80-100); RDW Coefficient of Variation % 14.2 % (11.5-15.5); Red Blood Count* 4.37 m/uL (4.00-5.20); White Blood Count* 12.02 K/uL (4.50-11.00)
[2024-12-27 08:38] LABS: Immature Granulocytes Abs Auto 0.00 K/uL (0.00-0.30); Lymphocytes Absolute Auto 1.40 K/uL (0.90-2.90)
[2024-12-27 08:39] LABS: Slide Review Reflex No
[2024-12-27 09:20] LABS: Appearance Urine Clear (Clear)
--- NOTE | 2024-12-27 09:51 | CRLHL7_ITS ---
For Patients: As a result of the Century Cures Act, medical imaging exams and procedure reports are released immediately into your electronic medical record. You may view this report before your referring provider. If you have questions, please contact your health care provider. INDICATION: Severe abdominal pain, 23 weeks . History of . COMPARISON: Same day ultrasound, prior CT abdomen pelvis 09/20/2024 TECHNIQUE: CT of the abdomen and pelvis with intravenous contrast. Multiplanar axial, coronal, and sagittal reformats were reconstructed. Contrast: 103 mL Isovue 370. FINDINGS: Lung bases: Normal. Liver: Normal. No mass. Gallbladder and bile ducts: Normal gallbladder. No bile duct dilation. Pancreas: Normal. Spleen: Normal. Adrenal glands: Normal. Kidneys: The right kidney is malrotated and slightly low lying. This is not a new finding. Normal left renal size and position. Normal renal parenchymal enhancement bilaterally. No cyst or solid mass. No calculi. No urinary tract dilation. Urinary bladder: Partially filled. Pelvis: Gravid uterus. Fetus is in the vertex presentation facing the mom`s right. Although this exam is not tailored to the examination of the fetus, no major anomalies are identified. The placenta is anterior. Expected appearance of the placenta for the stated gestational age. No placental abruption. No definitive placental extension beyond the uterus. No previa. The placental edge is more than 4 centimeters away from the cervical os. Unremarkable ovaries. Vessels: Normal appearance of the pelvic vasculature and gonadal veins. Bowel: No dilated or inflamed bowel. Normal retrocecal appendix.. Mild stool burden. Lymph nodes: No adenopathy. Peritoneum: No ascites. No free air. Abdominal wall: No bowel containing hernia. Mild diastasis recti. Tiny fat containing umbilical hernia. Bones: No fractures. No focal worrisome bone lesions. IMPRESSION: 1. Normal CT of the abdomen and pelvis. 2. Anterior placental implantation. Given the history of , recommend close attention on ultrasound for signs of placenta accreta spectrum abnormalities. None are seen on this exam. Please note that all CT scans at this facility use dose modulation, iterative reconstruction, and/or weight-based dosing when appropriate to reduce radiation dose to as low as reasonably achievable. Dictated by Lakisha Price MD @ 12/27/2024 10:35:54 AM (Electronically Signed)
--- NOTE | 2024-12-27 10:00 | PC.OBNST ---
NST Note NST Note Start: 12/27/24 07:08 Freq: ONCE Status: Active Protocol: Document 12/27/24 09:57 JACKSON (Rec: 12/27/24 10:00 JACKSON [id number]) NST Note 4 Para (# of births) 1 EDC 04/22/25 Gestational Age In 23 Weeks & 3 Days Weeks & Days Patient Presented Pain with Complaint(s) of If Pain, describe entire abdominal region. describes as a giant cramp. location Appropriate for Yes Gestational Age APOLINAR Millard Date 12/27/24 Appropriate for Yes Gestational Age APOLINAR Trevino Date 12/27/24 OB NST charge Yes Complete NST Note Yes via Write Note The provider's electronic signature indicates the NST is reactive/appropriate for gestational age. *Note to provider: If an addendum is required, open the patient's chart and click on the note under the Nurse/Allied Health tab.
--- NOTE | 2024-12-27 10:32 | PM.OBLDTN ---
OB - Triage/Final Diagnosis Visit Information Date Seen: 12/27/24 Date of evaluation: 12/27/24 Narrative: The patient is a 34 year old 4 para 1 at 23.3 weeks gestation by LMP, who presents with globalized abdominal cramping. Reports that she woke up this AM with intense abdominal cramping, 8/10. Described the pain as gnawing and globally throughout her entire abdomen. The pain does let up at times but endorses a baseline abdominal discomfort. Symptoms associated with bloating and nausea. She has been experiencing constipation for the last few days. She has an urge to have a bowel movement but would have very small, frequent bowel movements. Is passing gas. Able to eat and drink normally. Denies fevers, chills, vomiting, CP, SOB, headache or dizziness. Active movement. Denies Ctx, LOF, vaginal bleeding or abnormal vaginal discharge. Denies any urinary symptoms. She was tearful during examination as she is scared of another bowel obstruction. CBC notable for mild elevation of WBC (12.02). Pelvic US showed: 1. Patient described a positive Jeffers`s sign with 8/10 pain with exam over the gallbladder. However, the gallbladder is sonographically normal. 2. Nondiagnostic ultrasound for appendicitis due to the gravid uterus. Discussed risks and benefits of obtain repeat CTAP. Patient desires to move forward with CTAP. CTAP: 1. Normal CT of the abdomen and pelvis. 2. Anterior placental implantation. Given the history of , recommend close attention on ultrasound for signs of placenta accreta spectrum abnormalities. None are seen on this exam. Physical exam: General: Tearful Psych: Alert and oriented x4, full affect HEENT: Normocephalic, atraumatic Lungs: Unlabored breathing Abdomen: Normoactive bowel sounds, soft, no tenderness, rebound, or guarding, no fundal tenderness or tenderness with uterine motion Skin: No lesions or rashes Lower extremities: No edema or erythema Pelvic exam: Deferred FHT: 130s bpm Pain improved with simethicone and after two BM on L&D Plan: - Miralax daily. PRN docusate or senna - Follow up with continued care - Strict return and labor precautions reinforced. Evaluation Laboratory results: Laboratory Tests 12/27/24 12/27/24 Range/Units 08:20 08:00 WBC 12.02 H (4.50-11.00) K/uL RBC 4.37 (4.00-5.20) m/uL Hgb 12.5 (12.0-16.0) gm/dL Hct 37.2 (33.0-51.0) % MCV 85 (80-100) fL MCH 29 (26-34) pg MCHC 34 (32-36) gm/dL RDW Coeff of [place] 14.2 (11.5-15.5) % Plt Count 301 (140-440) K/uL Neut % (Auto) 81.6 H (42.0-72.0) % Lymph % (Auto) 11.4 L (20-44) % [place] % (Auto) 5.9 (0.0-11.0) % Eos % (Auto) 0.8 (0.0-7.0) % Baso % (Auto) 0.2 (0.0-3.0) % Neut # (Auto) 9.80 H (1.7-7.0) K/uL Lymph # (Auto) 1.40 (0.90-2.90) K/uL [place] # (Auto) 0.70 (0.00-0.90) K/UL Eos # (Auto) 0.10 (0.00-0.50) K/uL Baso # (Auto) 0.00 (0.00-0.30) K/uL Abs Immat Gran (auto) 0.00 (0.00-0.30) K/uL Imm/Tot Granulo (auto) 0.1 % Urine Color Light yellow (Yellow) Urine Appearance Clear (Clear) Urine pH 7.5 (5.0-8.5) Ur Specific [place] 1.015 (1.000-1.030) Urine Protein Negative (Negative) Urine Glucose (UA) Negative (Negative) Urine Ketones Negative (Negative) Urine Blood Negative (Negative) Urine Nitrite Negative (Negative) Urine Bilirubin Negative (Negative) Urine Urobilinogen 0.2 (0.2-1.0) Ur Leukocyte Esterase Negative (Negative) Vital signs: Vital Signs - 24 hr 12/27/24 07:31 12/27/24 07:34 12/27/24 08:07 Temperature 97.9 F Pulse Rate 85 Respiratory Rate 18 Blood Pressure 112/68 Pulse Oximetry 98
[2024-12-27] MEDS: SIMETHICONE 80 MG TAB.CHEW 160 MG PO (11:21)
== END 2024-12-27 11:35 | disposition home or self-care (01) ==
LOC: OB OUT 06:59 → OB 07:00
PROVIDERS: PCP Internal Medicine; Visit Provider Obstetrics & Gynecology
DX: O26.892 Other specified pregnancy related conditions, second trimester (principal); R10.9 Unspecified abdominal pain; Z3A.23 23 weeks gestation of pregnancy
CPT/HCPCS: 36415; 59025; 74177; 76705; 81003; 85025; 87086; G0463; A9270; Q9967

== ENCOUNTER 2024-12-29 13:25 | Outpatient (CLI) | payer BC, SELFPAY ==
--- NOTE | 2024-12-29 13:45 | CRLHL7_ITS ---
For Patients: As a result of the Century Cures Act, medical imaging exams and procedure reports are released immediately into your electronic medical record. You may view this report before your referring provider. If you have questions, please contact your health care provider. OB ULTRASOUND LMP: 07/16/2024. BRIANNE by LMP or US: 04/22/2025. GA: 23 w, 5 d. Single. Comparison: survey 12/03/2024. INDICATION: Missing anatomy from survey. TECHNIQUE: Real time grayscale imaging of the fetus was performed. Transabdominal. CERVIX: Visualized. TA measurement: 3.4 cm. POSITIONING: Vertex. AMNIOTIC FLUID: 4.6 cm. SDP (N: greater than 2 x 1 cm) PLACENTA: Technique: Transabdominal. PLACENTA POSITION: Anterior. DOPPLER: heart rate: 137 bpm. IMPRESSION: 1. Normal diaphragm, three-vessel view, LVOT, RVOT, four-chamber heart, and kidneys. 2. Anterior placental edge is located 4.3 cm from the internal cervical os. Javid Krishnamurthy M.D. Diagnostic Radiologist [email or web address] SHOLA/[email or web address] knowles/Dictated by: Javid Krishnamurthy MD @ 12/29/2024 5:28:00 PM (Electronically Signed)
== END 2024-12-29 13:26 | disposition home or self-care (01) ==
LOC: US 13:25
PROVIDERS: PCP Internal Medicine; Visit Provider Obstetrics & Gynecology
DX: Z36.2 Encounter for other antenatal screening follow-up (principal); Z3A.23 23 weeks gestation of pregnancy
CPT/HCPCS: 76816

== ENCOUNTER 2025-01-27 13:37 | Outpatient (CLI) | payer BC, SELFPAY | END 2025-01-27 13:38 | disposition home or self-care (01) | LOC: NFLDREF 13:38 | PROVIDERS: PCP Internal Medicine; Visit Provider Obstetrics & Gynecology | DX: O26.892 Other specified pregnancy related conditions, second trimester (principal); Z67.91 Unspecified blood type, Rh negative | CPT/HCPCS: 86592; 86850; J2791 ==

== ENCOUNTER 2025-02-09 23:19 | Outpatient (CLI) | payer BC, SELFPAY ==
[2025-02-09 23:34] VITALS: BP 125/69; PULSE 86
[2025-02-10 01:02] LABS: Bacterial Vaginosis* Negative (Negative); Candida glab/krus NOT DETECTED (No Detected)
--- NOTE | 2025-02-10 01:04 | PC.OBNST ---
NST Note NST Note Start: 02/09/25 23:28 Freq: ONCE Status: Active Protocol: Document 02/10/25 00:49 [place] (Rec: 02/10/25 00:52 [place] [id number]) NST Note 4 Para (# of births) 1 EDC 03/22/25 Gestational Age In 34 Weeks & 2 Days Weeks & Days Patient Presented Other with Complaint(s) of Other Complaints Yeasty rash in groin folds and vaginal itching Appropriate for Yes Gestational Age APOLINAR Mora, RN Date 02/10/25 Appropriate for Yes Gestational Age APOLINAR Pollack, RN Date 02/10/25 OB NST charge Yes Complete NST Note Yes via Write Note The provider's electronic signature indicates the NST is reactive/appropriate for gestational age. *Note to provider: If an addendum is required, open the patient's chart and click on the note under the Nurse/Allied Health tab.
== END 2025-02-10 01:00 | disposition home or self-care (01) ==
LOC: OB OUT 23:19 → OB 23:20
PROVIDERS: PCP Internal Medicine; Visit Provider Obstetrics & Gynecology
DX: O26.893 Other specified pregnancy related conditions, third trimester (principal); N89.8 Other specified noninflammatory disorders of vagina; Z3A.34 34 weeks gestation of pregnancy
CPT/HCPCS: 59025; 81513; 84112; 87210; 87481; 87661; G0463